=== PATIENT | female | born 1990 | race Caucasian/White ===

== ENCOUNTER → 2018-11-06 17:08 | Outpatient (CLI) | payer MEDICAID, SELFPAY ==
--- NOTE | 2018-11-06 17:14 | RAD_ITS ---
STUDY: X-RAY - SACRUM/COCCYX REASON FOR EXAM: Female, 27 years old. Pain after a fall TECHNIQUE: 3 view(s) of the sacrum and coccyx were obtained. COMPARISON: None. FINDINGS: Normal bilateral sacroiliac joints. Normal visualized sacral ala and fused sacral bodies. Normal sacrococcygeal junction with a normal angulation. Normal coccygeal segments. The presacral soft tissue structures are unremarkable. RAD/Sacrum-Coccyx min 2 Views IMPRESSION: Normal x-rays of the sacrum and coccyx. Electronically Signed: Max Correia MD at 13:51 EDT , Service support ,
--- NOTE | 2018-11-06 17:14 | RAD_ITS ---
STUDY: X-RAY - LUMBAR SPINE REASON FOR EXAM: Female, 27 years old. Fall TECHNIQUE: 4 view(s) of the lumbar spine were obtained. COMPARISON: None FINDINGS: Normal lumbar lordosis. There is a mild levoscoliosis. There is a normal alignment of the vertebrae. Normal vertebral bodies. Minimal spurring at the L5-S1 endplates. Normal disc space heights. The soft tissue structures are unremarkable. RAD/Lumbar Spine 2 or 3 Views IMPRESSION: No acute bony injury. Mild levoscoliosis of the lumbar spine. Electronically Signed: Dwight Jordan DO at 0:13 EDT Tel [phone], Service support ,
--- NOTE | 2018-11-06 17:14 | RAD_ITS ---
STUDY: X-RAY - THORACIC SPINE REASON FOR EXAM: Female, 27 years old. Fall TECHNIQUE: 3 view(s) of the thoracic spine were obtained. COMPARISON: None. FINDINGS: Normal kyphosis of the thoracic spine. There is no substantial scoliosis. Normal thoracic vertebrae and endplates. Normal disc space heights. The soft tissue structures are unremarkable. RAD/Thoracic Spine 2 Views IMPRESSION: Normal x-ray examination of the thoracic spine. Electronically Signed: Dwight Jordan DO at 0:14 EDT Tel [phone], Service support ,
== END ==
PROVIDERS: Family Provider Family Medicine Geriatric Medicine; PCP Family Medicine Geriatric Medicine; Referring Provider Family Medicine Geriatric Medicine; Visit Provider Family Medicine Geriatric Medicine
DX: T14.90XA Injury, unspecified, initial encounter (principal); W19.XXXA Unspecified fall, initial encounter; Y93.9 Activity, unspecified; Y92.9 Unspecified place or not applicable; Y99.9 Unspecified external cause status
CPT/HCPCS: 72070; 72100; 72220

== ENCOUNTER → 2018-11-28 | Outpatient (CLI) | payer OTHER, SELFPAY ==
[2018-11-28 09:32] VITALS: BMI 36.5
[2018-11-29 16:09] LABS: HPV Reflexed? NOT INDICATED
== END | disposition home or self-care (01) ==
LOC: LABSPEC 13:22
PROVIDERS: Family Provider Family Medicine Geriatric Medicine; PCP Family Medicine Geriatric Medicine; Referring Provider Nurse Practitioner Women's Health; Visit Provider Nurse Practitioner Women's Health
DX: Z12.4 Encounter for screening for malignant neoplasm of cervix (principal)
CPT/HCPCS: 87624; 88175; G0145

== ENCOUNTER → 2019-01-22 | Outpatient (CLI) | payer OTHER, SELFPAY ==
[2018-11-28 09:32] VITALS: BMI 36.5
[2019-01-22 17:53] LABS: Basophil# 0.07 X10^3/uL; Basophil% 0.6 % (0-1); Eosinophil# 0.16 X10^3/uL; Eosinophils% 1.3 % (0-5); Hematocrit 38.7 % (37-47); Lymphocyte # 5.43 X10^3/ul (4.0); Lymphocyte % 44.3 % (19-41); Mean Corp Hgb Conc 33.6 g/dL (32-36); Mean Corpuscular Hgb 30.7 pg (27.0-32.0); Mean Corpuscular Volume 91.5 fL (81-99); Mean Platelet Vol. 10.6 fl (6.2-12.0); Monocyte# 0.85 X10^3/uL; Monocyte% 6.9 % (0-10); NRBC Flagged by Analyzer 0 % (0-5); Neutrophil # 5.72 X10^3/uL (2.7-7.7); Neutrophil % 46.7 % (47-70); POSITIVE DIFFERENTIAL YES; Platelet Count 359 K/mm3 (150-450); RBC Distribution Width CV 12.2 % (11.6-14.6); RBC Distribution Width SD 40.6 fl (35.1-43.9); Red Blood Count 4.23 M/mm3 (4.2-5.4); White Blood Count 12.3 K/mm3 (4.4-11.0)
[2019-01-22 17:54] LABS: Differential Indicated SCAN CRITERIA MET
[2019-01-22 18:16] LABS: Anion Gap 9 (5-15); BUN 14 mg/dL (7-18); BUN/Creat Ratio 15.6 RATIO (10-20); Chloride 103 mmol/L (98-107); EST Glomerular Filtration Rate 79 mL/min (>60); Est Glom Filt Rate - Afr Amer 96 mL/min (>60); Glucose 98 mg/dL (74-106); Potassium 3.7 mmol/L (3.5-5.1); Sodium Level 140 mmol/L (136-145)
[2019-01-22 18:20] LABS: hCG Titer Quant., Serum < 1 mIU/mL (1-3)
== END | disposition home or self-care (01) ==
LOC: POLAB3 17:31
PROVIDERS: Family Provider Family Medicine Geriatric Medicine; PCP Family Medicine Geriatric Medicine; Visit Provider Family Medicine Geriatric Medicine
DX: N39.0 Urinary tract infection, site not specified (principal); N93.8 Other specified abnormal uterine and vaginal bleeding; R53.83 Other fatigue
CPT/HCPCS: 36415; 80048; 84702; 85025; 87086; 87088

== ENCOUNTER → 2019-01-23 | Outpatient (CLI) | payer OTHER, SELFPAY ==
[2018-11-28 09:32] VITALS: BMI 36.5
--- NOTE | 2019-01-23 08:30 | RAD_ITS ---
STUDY: X-RAY - ABDOMEN/PELVIS REASON FOR EXAM: Female, 28 years old. Pain x3 days, constipation TECHNIQUE: 4 AP views COMPARISON: None. FINDINGS: Normal visualized lung bases. There is an abundance of fecal material throughout the colon. There is no demonstrated free abdominal air. The visualized liver, spleen and kidneys are grossly normal in size and morphology. Normal soft tissue structures. Normal visualized osseous structures. RAD/Abd Inc Decub and/or Erect IMPRESSION: No acute findings, constipation Electronically Signed: Max Correia MD at 9:13 EDT , Service support ,
== END | disposition home or self-care (01) ==
LOC: RAD 08:26
PROVIDERS: Family Provider Family Medicine Geriatric Medicine; PCP Family Medicine Geriatric Medicine; Referring Provider Family Medicine Geriatric Medicine; Visit Provider Family Medicine Geriatric Medicine
DX: R10.9 Unspecified abdominal pain (principal)
CPT/HCPCS: 74019

== ENCOUNTER → 2019-07-23 16:14 | Outpatient (CLI) | payer OTHER, SELFPAY ==
[2018-11-28 09:32] VITALS: BMI 36.5
[2019-07-23 17:57] LABS: Absolute Lymphocyte Count 5.84 X10^3/uL (0.83-4.51); Absolute Neutrophil Count 4.8 X10^3/uL (2.0-7.7); Basophil# 0.06 X10^3/uL; Basophil% 0.5 % (0-1); Eosinophil# 0.22 X10^3/uL; Eosinophils% 1.9 % (0-5); Hematocrit 37.7 % (37-47); Hemoglobin 11.8 g/dL (12.0-15.0); Lymphocyte # 5.84 X10^3/ul (4.0); Lymphocyte % 50.1 % (19-41); Mean Corp Hgb Conc 31.3 g/dL (32-36); Mean Corpuscular Hgb 27.3 pg (27.0-32.0); Mean Corpuscular Volume 87.3 fL (81-99); Mean Platelet Vol. 11.3 fl (6.2-12.0); Monocyte# 0.71 X10^3/uL; Monocyte% 6.1 % (0-10); NRBC Flagged by Analyzer 0 % (0-5); Neutrophil # 4.79 X10^3/uL (2.7-7.7); Neutrophil % 41.1 % (47-70); POSITIVE DIFFERENTIAL YES; Platelet Count 401 K/mm3 (150-450); RBC Distribution Width SD 40.7 fl (35.1-43.9); Red Blood Count 4.32 M/mm3 (4.2-5.4); White Blood Count 11.7 K/mm3 (4.4-11.0)
[2019-07-23 18:00] LABS: Differential Indicated SCAN CRITERIA MET
[2019-07-23 18:17] LABS: ALB/GLOB Ratio 0.9 RATIO (0.9-2.4); AST(SGOT) 64 U/L (15-37); Alanine Aminotransfer ALT/SGPT 74 U/L (13-56); Albumin, Serum 3.5 g/dL (3.2-5.0); Alkaline Phosphatase 61 U/L (45-117); Anion Gap 5 (5-15); BUN 15 mg/dL (7-18); BUN/Creat Ratio 17.7 RATIO (10-20); Calcium,Total 8.8 mg/dL (8.5-10.1); Chloride 108 mmol/L (98-107); Creatinine, Serum 0.85 mg/dL (0.55-1.02); EST Glomerular Filtration Rate 84 mL/min (>60); Est Glom Filt Rate - Afr Amer 101 mL/min (>60); Glucose 81 mg/dL (74-106); Protein, Total 7.5 g/dL (6.4-8.2); Sodium Level 138 mmol/L (136-145); Thyroid Stim Hormone (TSH) 1.58 uIU/mL (0.358-3.74)
[2019-07-23 18:32] LABS: Differential Comment SCANNED
== END ==
PROVIDERS: PCP Family Medicine Geriatric Medicine; Visit Provider Family Medicine Geriatric Medicine
DX: I10 Essential (primary) hypertension (principal)
CPT/HCPCS: 36415; 80053; 84443; 85025

== ENCOUNTER → 2019-08-14 16:37 | Outpatient (CLI) | payer OTHER, SELFPAY ==
[2018-11-28 09:32] VITALS: BMI 36.5
[2019-08-14 17:30] LABS: Absolute Lymphocyte Count 5.54 X10^3/uL (0.83-4.51); Absolute Neutrophil Count 4.8 X10^3/uL (2.0-7.7); Basophil# 0.07 X10^3/uL; Basophil% 0.6 % (0-1); Eosinophil# 0.17 X10^3/uL; Eosinophils% 1.5 % (0-5); Hematocrit 35.9 % (37-47); Hemoglobin 11.1 g/dL (12.0-15.0); Lymphocyte # 5.54 X10^3/ul (4.0); Lymphocyte % 48.8 % (19-41); Mean Corp Hgb Conc 30.9 g/dL (32-36); Mean Corpuscular Hgb 26.8 pg (27.0-32.0); Mean Corpuscular Volume 86.7 fL (81-99); Monocyte# 0.78 X10^3/uL; Monocyte% 6.9 % (0-10); NRBC Flagged by Analyzer 0 % (0-5); Neutrophil # 4.77 X10^3/uL (2.7-7.7); POSITIVE DIFFERENTIAL YES; Platelet Count 406 K/mm3 (150-450); RBC Distribution Width CV 13.5 % (11.6-14.6); RBC Distribution Width SD 42.5 fl (35.1-43.9); Red Blood Count 4.14 M/mm3 (4.2-5.4); White Blood Count 11.4 K/mm3 (4.4-11.0)
[2019-08-14 17:41] LABS: Differential Indicated SCAN CRITERIA MET
[2019-08-14 17:54] LABS: ALB/GLOB Ratio 0.9 RATIO (0.9-2.4); AST(SGOT) 19 U/L (15-37); Alanine Aminotransfer ALT/SGPT 49 U/L (13-56); Albumin, Serum 3.5 g/dL (3.2-5.0); Alkaline Phosphatase 60 U/L (45-117); Anion Gap 6 (5-15); BUN 19 mg/dL (7-18); BUN/Creat Ratio 19.2 RATIO (10-20); Calcium,Total 8.8 mg/dL (8.5-10.1); Chloride 108 mmol/L (98-107); Creatinine, Serum 0.99 mg/dL (0.55-1.02); EST Glomerular Filtration Rate 70 mL/min (>60); Est Glom Filt Rate - Afr Amer 85 mL/min (>60); Globulin 3.9 g/dL (2.2-4.2); Glucose 110 mg/dL (74-106); Potassium 3.6 mmol/L (3.5-5.1); Protein, Total 7.4 g/dL (6.4-8.2); Sodium Level 138 mmol/L (136-145)
[2019-08-14 18:41] LABS: Platelet Estimate SLT INC (ADEQ); Red Cell Morphology NORM C+C NORMAL (NORM C&C)
[2019-08-14 18:42] LABS: Toxic Granulation RARE
[2019-08-15 09:19] LABS: Pathologist Review Reviewed
== END ==
PROVIDERS: PCP Family Medicine Geriatric Medicine; Visit Provider Family Medicine Geriatric Medicine
DX: D64.9 Anemia, unspecified (principal)
CPT/HCPCS: 36415; 80053; 85025

== ENCOUNTER → 2019-08-15 09:10 | Outpatient (CLI) | payer OTHER, SELFPAY ==
[2018-11-28 09:32] VITALS: BMI 36.5
[2019-08-15 12:26] LABS: Platelet Count 417 K/mm3 (150-450); RET-HE 28.5 pg (30-35); Reticulocyte Count 1.76 % (0.5-1.5)
[2019-08-15 12:44] LABS: Vitamin B12 511 pg/mL (211-911)
[2019-08-15 13:06] LABS: Ferritin 3 ng/mL (8-252); Iron 24 ug/dL (50-170); Iron Binding Capacity,Total 467 ug/dL (250-450); PERCENT IRON SATURATION 5.1 % (15.0-55.0)
== END ==
PROVIDERS: PCP Family Medicine Geriatric Medicine; Visit Provider Family Medicine Geriatric Medicine
DX: D64.9 Anemia, unspecified (principal)
CPT/HCPCS: 36415; 82607; 82728; 82746; 83540; 83550; 85045

== ENCOUNTER → 2019-09-02 17:41 | Outpatient (CLI) | payer OTHER, SELFPAY ==
[2018-11-28 09:32] VITALS: BMI 36.5
--- NOTE | 2019-09-02 17:50 | RAD_ITS ---
HISTORY: LOWER BACK PAIN FOR 3 MONTHS DUE TO EXERCISE INJURY TECHNIQUE: Lumbar spine 3 views Number of images including paperwork: 3 COMPARISON: 11/06/2018 FINDINGS: VERTEBRAE: No acute fracture. VERTEBRAL ALIGNMENT: No traumatic subluxation. Mild left convex lumbar curvature appears similar. DISKS AND JOINTS: No significant degenerative changes. SOFT TISSUES: Unremarkable paraspinous soft tissues. Moderate to large amount of stool in the visualized colon. RAD/Lumbar Spine 2 or 3 Views IMPRESSION: No acute osseous abnormality. at 0401 Reported and signed by: Carli Brannon MD Electronically Signed: Carli Brannon MD at 4:01 EST Tel , Service support ,
== END ==
PROVIDERS: PCP Family Medicine Geriatric Medicine; Referring Provider Family Medicine Geriatric Medicine; Visit Provider Family Medicine Geriatric Medicine
DX: M54.5 Low back pain (principal)
CPT/HCPCS: 72100

== ENCOUNTER → 2019-09-08 16:21 | Outpatient (CLI) | payer OTHER, SELFPAY ==
[2018-11-28 09:32] VITALS: BMI 36.5
[2019-09-08 17:46] LABS: Hematocrit 36.5 % (37-47); Hemoglobin 11.7 g/dL (12.0-15.0)
== END ==
PROVIDERS: PCP Family Medicine Geriatric Medicine; Visit Provider Family Medicine Geriatric Medicine
DX: D50.9 Iron deficiency anemia, unspecified (principal)
CPT/HCPCS: 36415; 85014; 85018

== ENCOUNTER → 2019-10-07 15:09 | Outpatient (CLI) | payer OTHER, SELFPAY ==
[2018-11-28 09:32] VITALS: BMI 36.5
[2019-10-07 16:38] LABS: Hematocrit 38.2 % (37-47)
== END ==
PROVIDERS: PCP Family Medicine Geriatric Medicine; Visit Provider Family Medicine Geriatric Medicine
DX: D64.9 Anemia, unspecified (principal)
CPT/HCPCS: 36415; 85014; 85018

== ENCOUNTER → 2019-11-18 11:56 | Outpatient (CLI) | payer OTHER, SELFPAY ==
[2018-11-28 09:32] VITALS: BMI 36.5
--- NOTE | 2019-11-18 11:59 | RAD_ITS ---
STUDY: X-RAY - ABDOMEN/PELVIS REASON FOR EXAM: Female, 28 years old. abd pain, constipation TECHNIQUE: AP supine and upright views of the abdomen and pelvis. COMPARISON: 01/23/2019 FINDINGS: There is an unremarkable bowel gas pattern. Nondiagnostic for pneumoperitoneum. 5 mm calcific opacity overlying the right kidney consistent with a right renal stone. Normal soft tissue structures. Normal visualized osseous structures. RAD/Abd Inc Decub and/or Erect IMPRESSION: 1. No bowel obstruction. 2. Nondiagnostic for pneumoperitoneum. 3. Probable 5 mm right renal stone. Electronically Signed: Melvin Salinas MD at 12:54 EDT Tel , Service support ,
== END ==
PROVIDERS: PCP Family Medicine Geriatric Medicine; Referring Provider Family Medicine Geriatric Medicine; Visit Provider Family Medicine Geriatric Medicine
DX: R10.9 Unspecified abdominal pain (principal)
CPT/HCPCS: 74019

== ENCOUNTER → 2020-01-06 15:06 | Outpatient (CLI) | payer OTHER, SELFPAY ==
[2018-11-28 09:32] VITALS: BMI 36.5
--- NOTE | 2020-01-06 17:03 | CT_ITS ---
STUDY: CT ABDOMEN AND PELVIS WITH CONTRAST REASON FOR EXAM: Female, 29 years old. RLQ PAIN RADIATION DOSAGE (If Supplied By Facility): CTDIvol = ( 13.83 ) mGy, DLP = ( 999.42 ) mGycm TECHNIQUE: Transaxial images were obtained from the dome of the diaphragm to the symphysis pubis with oral contrast. Oral and amp; IV GASTROGRAFIN and amp; 100ML ISOVUE 300 was administered. Sagittal and coronal images were reconstructed. Individualized dose optimization techniques were used for this CT. COMPARISON: 10/11/2016 FINDINGS: The visualized lung bases are unremarkable. The visualized portions of the heart are within normal limits. There is decreased attenuation of the liver consistent with steatosis. Hepatomegaly Normal gallbladder and extrahepatic biliary system. Normal spleen. Normal pancreas. Normal bilateral adrenal glands. Multiple nonobstructing right renal stones. Normal left kidney. Normal visualized stomach. Normal small intestine. Normal colon. The appendix is visualized and appears normal. Normal abdominal aorta. Normal inferior vena cava. Normal retroperitoneum. Normal urinary bladder. Retroverted uterus. Normal abdominal wall. Normal osseous structures. CT/Abdomen/Pelvis WITH Contrast IMPRESSION: No evidence of appendicitis, acute intestinal pathology, or acute obstructive uropathy. Hepatomegaly and fatty liver. Electronically Signed: Christiano Mane MD at 17:35 EDT Tel , Service support ,
== END ==
PROVIDERS: PCP Family Medicine Geriatric Medicine; Referring Provider Family Medicine Geriatric Medicine; Visit Provider Family Medicine Geriatric Medicine
DX: N39.0 Urinary tract infection, site not specified (principal); R10.9 Unspecified abdominal pain
CPT/HCPCS: 74177; 87086; 87088; Q9967

== ENCOUNTER → 2020-01-07 17:44 | Outpatient (CLI) | payer OTHER, SELFPAY ==
[2018-11-28 09:32] VITALS: BMI 36.5
== END ==
PROVIDERS: PCP Family Medicine Geriatric Medicine; Referring Provider Family Medicine Geriatric Medicine; Visit Provider Family Medicine Geriatric Medicine
DX: J41.0 Simple chronic bronchitis (principal)
CPT/HCPCS: 87635; G2023; U0003

== ENCOUNTER → 2020-02-02 08:56 | Outpatient (CLI) | payer OTHER, SELFPAY ==
[2018-11-28 09:32] VITALS: BMI 36.5
--- NOTE | 2020-02-02 08:59 | US_ITS ---
STUDY: RENAL ULTRASOUND - COMPLETE REASON FOR EXAM: Female, 29 years old. MEDULLARY SPONGE KIDNEY TECHNIQUE: Ultrasound evaluation of the kidneys was performed with real-time and static rangel-scale imaging. COMPARISON: Comparison is made with prior CT scan and pelvis dated 01/06/2020. FINDINGS: RIGHT KIDNEY: Normal location of the right kidney, which is normal in size. The right kidney measures 12.8 cm x 6.6 cm x 6.1 cm. There is a normal cortex of the right kidney. The renal cortex measures 1.4 cm. There is no right renal mass or cyst. There is a 5 mm x 5 mm x 9 mm calculus. There is no right hydronephrosis. DISTAL RIGHT URETER: There is non-visualization of the distal right ureter. There is no demonstrated right ureterovesical junction calculus. There is a visualized right ureteral jet. LEFT KIDNEY: Normal location of the left kidney, which is normal in size. The left kidney measures 12.7 cm x 6 cm x 5.9 cm. There is a normal cortex of the left kidney. The renal cortex measures 0.9 cm. There is no left renal mass or cyst. There are no left renal calculi. There is no left hydronephrosis. DISTAL LEFT URETER: There is non-visualization of the distal left ureter. There is no demonstrated left ureterovesical junction calculus. There is a visualized left ureteral jet. BLADDER: The distended urinary bladder has a volume of 174 ml. There is a normal wall thickness of the distended urinary bladder. There is no demonstrated mass within the urinary bladder. There are no demonstrated bladder calculi. US/Kidney and Bladder IMPRESSION: 5 mm x 5 mm x 9 mm right renal calculus. Electronically Signed: Fredy Short, at 11:11 EDT , Service support ,
== END ==
PROVIDERS: PCP Family Medicine Geriatric Medicine; Referring Provider Family Medicine Geriatric Medicine; Visit Provider Family Medicine Geriatric Medicine
DX: Q61.5 Medullary cystic kidney (principal)
CPT/HCPCS: 76770

== ENCOUNTER → 2020-04-29 10:33 | Outpatient (CLI) | payer OTHER, SELFPAY ==
[2018-11-28 09:32] VITALS: BMI 36.5
== END ==
PROVIDERS: PCP Family Medicine Geriatric Medicine; Referring Provider Family Medicine Geriatric Medicine; Visit Provider Family Medicine Geriatric Medicine
DX: R68.83 Chills (without fever) (principal)
CPT/HCPCS: 87633; 87635; C9803; U0003

== ENCOUNTER → 2020-07-09 | Outpatient (CLI) | payer OTHER, SELFPAY ==
[2020-05-25 08:14] VITALS: BMI 35.4
== END | disposition home or self-care (01) ==
LOC: LABSPEC 09:25
PROVIDERS: PCP Family Medicine Geriatric Medicine; Visit Provider Family Medicine Geriatric Medicine
DX: Z20.822 Contact with and (suspected) exposure to COVID-19 (principal)
CPT/HCPCS: 87426

== ENCOUNTER → 2020-07-20 17:19 | Outpatient (CLI) | payer OTHER, SELFPAY ==
[2020-05-25 08:14] VITALS: BMI 35.4
== END ==
PROVIDERS: PCP Family Medicine Geriatric Medicine; Referring Provider Family Medicine Geriatric Medicine; Visit Provider Family Medicine Geriatric Medicine
DX: U07.1 COVID-19 (principal); R68.83 Chills (without fever)
CPT/HCPCS: 87633; 87635; C9803; U0003

== ENCOUNTER → 2020-08-31 16:48 | Outpatient (CLI) | payer OTHER, SELFPAY ==
[2020-05-25 08:14] VITALS: BMI 35.4
[2020-08-31 17:19] LABS: Absolute Lymphocyte Count 6.31 X10^3/uL (0.83-4.51); Absolute Neutrophil Count 6.4 X10^3/uL (2.0-7.7); Basophil# 0.09 X10^3/uL; Basophil% 0.7 % (0-1); Eosinophil# 0.17 X10^3/uL; Eosinophils% 1.2 % (0-5); Hematocrit 42.3 % (37-47); Lymphocyte # 6.31 X10^3/ul (4.0); Lymphocyte % 45.8 % (19-41); Mean Corp Hgb Conc 33.1 g/dL (32-36); Mean Corpuscular Hgb 30.5 pg (27.0-32.0); Mean Corpuscular Volume 92.2 fL (81-99); Mean Platelet Vol. 10.9 fl (6.2-12.0); Monocyte# 0.79 X10^3/uL; Monocyte% 5.7 % (0-10); NRBC Flagged by Analyzer 0 % (0-5); Neutrophil # 6.37 X10^3/uL (2.7-7.7); Neutrophil % 46.2 % (47-70); POSITIVE DIFFERENTIAL YES; POSITIVE MORPHOLOGY YES; Platelet Count 391 K/mm3 (150-450); RBC Distribution Width CV 12.3 % (11.6-14.6); RBC Distribution Width SD 41.6 fl (35.1-43.9); Red Blood Count 4.59 M/mm3 (4.2-5.4); White Blood Count 13.8 K/mm3 (4.4-11.0)
[2020-08-31 17:29] LABS: Differential Indicated SCAN CRITERIA MET
[2020-08-31 17:42] LABS: Anisocytosis RARE; Atypical Lymphocyte RARE %; Macrocytosis RARE; Platelet Estimate ADEQUATE (ADEQ); Red Cell Morphology N CHROM NORMAL (NORM C&C)
[2020-08-31 18:41] LABS: Anion Gap 7 (5-15); BUN 14 mg/dL (7-18); BUN/Creat Ratio 17.3 RATIO (10-20); Calcium,Total 9.1 mg/dL (8.5-10.1); Chloride 103 mmol/L (98-107); Creatinine, Serum 0.81 mg/dL (0.55-1.02); EST Glomerular Filtration Rate 88 mL/min (>60); Est Glom Filt Rate - Afr Amer 107 mL/min (>60); Glucose 105 mg/dL (74-106); Sodium Level 138 mmol/L (136-145)
[2020-09-01 14:56] LABS: Pathologist Review Reviewed
== END ==
PROVIDERS: PCP Family Medicine Geriatric Medicine; Visit Provider Family Medicine Geriatric Medicine
DX: R53.83 Other fatigue (principal)
CPT/HCPCS: 36415; 80048; 84443; 85025

== ENCOUNTER → 2020-10-07 16:49 | Outpatient (CLI) | payer OTHER, SELFPAY ==
[2020-05-25 08:14] VITALS: BMI 35.4
--- NOTE | 2020-10-07 16:55 | RAD_ITS ---
INDICATION: LUMBAR DISC LESION EXAMINATION/TECHNIQUE: X-RAY - XR Spine Lumbar 2 or 3 Views COMPARISON: None. FINDINGS: VERTEBRAE: Preserved vertebral body height. No fracture. Mild left convex curvature of the mid lumbar spine. 6 mm left lateral subluxation of the L4 vertebral body with respect to the L5 vertebral body. No spondylolisthesis. Straightening of the normal lumbar lordosis. No significant facet arthropathy. DISCS: Mild disc space narrowing at L5-S1. INCLUDED ABDOMEN: Included bowel gas pattern is non-obstructive. RAD/Lumbar Spine 2 or 3 Views IMPRESSION: 6 mm left lateral subluxation of the L4 vertebral body with respect to the L5 vertebral body. Levoscoliosis of the lumbar spine. Mild lumbar spondylosis at L5-S1. Electronically Signed: Demian Blankenship MD at 19:32 EDT Tel , Service support ,
== END ==
PROVIDERS: PCP Family Medicine Geriatric Medicine; Referring Provider Family Medicine Geriatric Medicine; Visit Provider Family Medicine Geriatric Medicine
DX: M51.86 Other intervertebral disc disorders, lumbar region (principal)
CPT/HCPCS: 72100

== ENCOUNTER → 2020-10-18 | Outpatient (CLI) | payer OTHER, SELFPAY ==
[2020-05-25 08:14] VITALS: BMI 35.4
--- NOTE | 2020-10-18 | MISC_PTH ---
PATIENT: NIKKI KENT LOC: [facility] U#:[id number] AGE/SX: 29/F ROOM: RE10/18/[address]: Dr. Dinesh Koenig MD : 1990 BED: DIS: 10/18/2020 SPEC #: [id number] RECD: 10/18/20 16:39 STATUS: TAYLOR ORTASena #: [id number] FEI: 10/18/20 00:[address]: Dinesh Koenig Chi DEPT: SURGICAL PATHOLOGY RECD BY: Justin Delaney Tissues: Finger, NOS Procedures: Surgery Specimen Level IV HEADER OPERATION: Right index finger PRE-OP DIAGNOSIS: Right index finger TISSUE SUBMITTED: Right index finger MICROSCOPIC DIAGNOSIS Skin lesion, right index finger, shave biopsy: Mild acanthosis, hyperkeratosis and focal parakeratosis. No evidence of malignancy. AM:anna 10/20/2020 MICROSCOPIC DESCRIPTION Slides are reviewed. GROSS DESCRIPTION Received in fixative is one container labeled with the patient's name and designated right index finger. The specimen consists of a shave biopsy of willett-white skin measuring 0.5 x 0.4 cm and 0.1 cm in thickness. The specimen is inked and submitted entirely in one cassette. It will be bisected at the time of embedding. / SJ:rg 10/19/20 TC: 5 CPT: 46287
== END | disposition home or self-care (01) ==
LOC: LABSPEC 16:26
PROVIDERS: PCP Family Medicine Geriatric Medicine; Visit Provider Family Medicine Geriatric Medicine
DX: L98.9 Disorder of the skin and subcutaneous tissue, unspecified (principal)
CPT/HCPCS: 88304; 88305

== ENCOUNTER 2021-02-08 08:00 | Outpatient (RCR) | payer OTHER, SELFPAY ==
[2020-05-25 08:14] VITALS: BMI 35.4
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
--- NOTE | 2021-05-10 13:26 | HP.PT.NRP ---
NIKKI KENT was seen in my office for initial evaluation on 12/10/20. The following Plan of Care was established for this patient: Initial Frequency: 2-3x /Week Initial Duration: 4-6 Weeks Patient/Client Instruction: Educate patient on: Condition, Plan of Care, Risk Factors For the Purpose of:: To improve self management Therapeutic Exercise to Include: Strength training, Body mechanics, Postural training, Flexibilty training, Neuromotor development, In an aquatic setting, Dynamic Lumbar Stabilization For the Purpose of:: To decrease pain, To improve muscle performance and motor function, To increase tolerance to activity/condition/position, To improve ability of physical actions for home/community/work/leisure TENS: Yes IF ES: Yes Cryotherapy (ice pack, ice massage): Yes Thermo therapy (hot pack): Yes Ultrasound (thermal/non thermal): Yes For the Purpose of:: To decrease pain, To improve nutrient delivery to tissue This patient was last seen in our office 02/08/21. Pertinent comments regarding their Physical therapy will appear below: This patient has not returned to Physical Therapy and is appropriate to return to MD for further follow-up as needed. At this point I will be discontinuing this patient from physical therapy. I would be happy to see this patient again in the future if found appropriate by the physician. Thank you! Maddie Grant, PT, Cert MDT Balance/Gait/Functional tests - Balance/Special Test Scores Oswestry Low Back Score: 14
== END 2021-02-08 19:00 | disposition home or self-care (01) ==
LOC: PT 08:00
PROVIDERS: PCP Family Medicine Geriatric Medicine; Referring Provider Family Medicine Geriatric Medicine; Visit Provider Family Medicine Geriatric Medicine
DX: M54.40 Lumbago with sciatica, unspecified side (principal)
CPT/HCPCS: 97014; 97035; 97110; 97112; 97162; 97530; G0283

== ENCOUNTER 2021-02-12 09:59 | Emergency (ER) | payer OTHER, SELFPAY ==
[2020-05-25 08:14] VITALS: BMI 35.4
[2021-02-12 10:04] VITALS: BP 142/95; PULSE 103; RESP 16; TEMP 36.3; O2SAT 100; BMI 35.9
--- NOTE | 2021-02-12 10:32 | ED.VIS.BACK ---
HPI History of Present Illness Chief Complaint: Back Informant: patient Onset/Context/Timing Onset: Today Context: Gradual Onset Timing: Continuous Quality: Sharp and Dull Location: Lumbar, Buttock and Left Leg Worsened by: improves with - (Sitting and laying down) Relieved by: - (Standing) Associated Symptoms Associated Symptoms: Numbness and Radiation to Left Leg; Negative for Radiation to Right Leg, Fever, Abdominal Pain, Dysuria, Unable to Ambulate, Unable to Transfer, Urinary Retention, Urinary Incontinence, Constipation and Fecal Incontinence Narrative Narrative: Patient presents with sciatica pain that became worse today. Patient states she has a history of sciatica going down her left leg. Patient states she is in physical therapy for this. Patient states she has been taking Tylenol and ibuprofen with minimal relief. Patient admits to some numbness and tingling down her left leg. Patient denies any radiation of the pain into her abdomen. Patient denies any bowel or bladder changes. Patient denies any saddle anesthesia. Patient denies any recent trauma or injury. [facility] Medical History Hypertension Migraines PCOS (polycystic ovarian syndrome) Home Medications nebivolol 5 mg tablet 5 mg PO DAILY 11/28/18 [History Last Taken Unknown] norethindrone (contraceptive) 0.35 mg tablet 0.35 mg PO QDAY #84 tab 05/25/20 [Rx Last Taken Unknown] omeprazole 20 mg capsule,delayed release 20 mg PO DAILY 05/25/20 [History Last Taken Unknown] melatonin 5 mg PO QHS 02/12/21 [History Last Taken Unknown] oxycodone-acetaminophen 1 tab PO Q6H PRN PRN 3 Days #12 tablet 02/12/21 [Rx Last Taken Unknown] Allergy/AdvReac Type Severity Reaction Status Date / Time acetaminophen [From Vicodin] AdvReac Nausea/Vom/ Verified 02/12/21 10:04 Diarrhea hydrocodone [From Vicodin] AdvReac Nausea/Vom/ Verified 02/12/21 10:04 Diarrhea metoclopramide [From Reglan] AdvReac Other Verified 02/12/21 10:04 promethazine [From Phenergan] AdvReac Other Verified 02/12/21 10:04 Family History Mother Hypertension Grandfather Prostate cancer Other Ovarian cancer Surgical History s/p polyp removal Social History household members: spouse and children number of children: 2 current occupational status: employed current occupation: [employer] history of recent travel: No sexually active: Yes Smoking Status: Former smoker alcohol intake: current alcohol intake frequency: holidays/special occasions only substance use type: does not use caffeine: Yes what type of physical activity do you participate in: weight training frequency: 1-2 times per week seatbelt use: always do you feel safe at home: Yes additional social history: - [place] [facility] ED Constitutional Constitutional ED: Denies chills or fever(s) Eyes Eyes: Denies blurry vision or change in vision ENT ENT ED: Denies rhinorrhea or sore throat Cardiovascular Cardiovascular: Denies chest pain or palpitations Respiratory/Chest Respiratory/Chest: Denies cough or dyspnea Gastrointestinal Gastrointestinal: Denies nausea or vomiting Genitourinary Genitourinary ED: Denies dysuria or hematuria Musculoskeletal Musculoskeletal: Reports back pain; Denies neck pain Integumentary Denies abscess or rash Neurologic Neurologic: Reports paresthesias LLE; Denies headache(s) or weakness Allergic/Immunologic Allergic/Immunologic ED: Denies mouth swelling or urticaria EXAM Physical Exam Const Vital Signs: 02/12/21 10:04 Temperature 97.3 F L Temperature Source Temporal Pulse Rate 103 H Respiratory Rate 16 Blood Pressure 142/95 H Blood Pressure Mean 110 Pulse Ox 100 Oxygen Delivery Method Room Air Positive well nourished, well developed and obese General Appearance ED: well developed Nutritional Appearance: obese HEENT Reports moist mucous membranes Neck supple and no JVD Back/Spine Back/Spine Narrative: There is tenderness over the left lower lumbar paraspinal muscles. There is no midline tenderness. There is tenderness over the sciatic notch. There is no bony crepitance or step-off. Range of motion was limited in all motions of the lumbar spine secondary to pain. Strength is 5/5 bilaterally in the lower extremities. Neuro oriented x3 Sensorium / Orientation: alert Motor Exam: strength 5/5 throughout Psych mental status grossly normal MDM MDM MDM Narrative Medical decision making narrative: Patient drove herself to the emergency department. Patient was given a dose of Naprosyn here. Patient was given a prescription for Percocet. Patient was instructed continue using ice to the area. Patient was instructed to continue her physical therapy. Patient was instructed to follow-up with her primary care physician in 5 to 7 days. Patient understood and was agreeable with the plan. All questions were answered. Discharge Plan Triage Chief Complaint: Back ED Provider: Jc Torres Dx/Rx/DC Orders Clinical Impression: Sciatica of left side Instructions: ED Sciatica Prescriptions: New oxycodone-acetaminophen [oxycodone-acetaminophen] 1 TABLET tablet 1 tab PO Q6H PRN PRN (Reason: Pain) 3 Days Qty: 12 RF: 0 No Action Bystolic 5 mg tablet 5 mg PO DAILY RF: 0 omeprazole 20 mg capsule,delayed release(DR/EC) 20 mg PO DAILY RF: 0 norethindrone (contraceptive) [Rica] 0.35 mg tablet 0.35 mg PO QDAY Qty: 84 RF: 4 melatonin 5 mg Tablet 5 mg PO QHS RF: 0 Primary Care Provider: Dinesh Koenig Chi Referrals: Dinesh Koenig Chi, MD [Primary Care Provider] - 3-5 Days Disposition Disposition: Home, Self Care
[2021-02-12] MEDS: Naproxen 250 MG Tablet 500 MG PO (10:59)
== END 2021-02-12 11:04 | disposition home or self-care (01) ==
LOC: ED 10:53
PROVIDERS: Emergency Provider Emergency Medicine; PCP Family Medicine Geriatric Medicine
DX: M54.42 Lumbago with sciatica, left side (principal); I10 Essential (primary) hypertension; E66.9 Obesity, unspecified; Z68.35 Body mass index [BMI] 35.0-35.9, adult; Z79.899 Other long term (current) drug therapy; Z87.891 Personal history of nicotine dependence
CPT/HCPCS: 99283

== ENCOUNTER → 2021-02-25 11:22 | Outpatient (CLI) | payer OTHER, SELFPAY ==
--- NOTE | 2021-02-25 12:44 | NEURO ---
NCS and/or EMG Patient Report Ordering Doctor: Dinesh Koenig Chi DATE OF SERVICE: 02/25/21 Indication: Left sciatica pain for the last 6 months. Numbness on the lateral aspect of the left leg for the last month. Evaluate for lumbar radiculopathy. Findings: Nerve conduction studies were performed in the left lower extremity. The left peroneal motor study recording the extensor digitorum brevis showed a normal amplitude, normal distal latency and normal conduction velocity. No conduction block or focal slowing was present across the fibular neck. The left tibial motor study recording the abductor hallucis brevis showed a normal amplitude, normal distal latency and normal conduction velocity. Left sural sensory response showed a normal amplitude and conduction velocity. Left superficial peroneal sensory response showed a normal amplitude and conduction velocity. Needle EMG of the left lower extremity and lumbar paraspinal muscles was performed. No denervation was present in any muscle. All motor unit morphology, activation and recruitment patterns were normal. Impression: This is a normal study. There is no electrophysiologic evidence of lumbosacral radiculopathy, plexopathy, or peripheral neuropathy in the left lower extremity. Please note: the electrodiagnosis of radiculopathy is made on the basis of excluding peripheral nerve lesions on nerve conduction studies and the needle EMG demonstrating denervation and/or reinnervation in the distribution of one or more nerve roots (i.e., acute and/or chronic axonal loss). Thus, electrodiagnostic studies are insensitive in detecting radiculopathy in the absence of axonal loss (e.g., in the setting of compression resulting in intermittent ischemia or mechanical deformation; or demyelination without axonal loss). Thus, clinical correlation is required in the interpretation of this negative electrodiagnostic study for radiculopathy. Demian Boggs D.O.
== END ==
LOC: PSN 11:25
PROVIDERS: PCP Family Medicine Geriatric Medicine; Referring Provider Family Medicine Geriatric Medicine; Visit Provider Family Medicine Geriatric Medicine
DX: R20.9 Unspecified disturbances of skin sensation (principal); R20.0 Anesthesia of skin
CPT/HCPCS: 95886; 95908

== ENCOUNTER → 2021-03-05 07:47 | Outpatient (CLI) | payer OTHER, SELFPAY ==
--- NOTE | 2021-03-05 07:58 | MRI_ITS ---
STUDY: MRI LUMBAR SPINE WITHOUT CONTRAST REASON FOR EXAM: Female, 30 years old. LOW BACK PAIN TECHNIQUE: Standardized fat and water weighted pulse sequences were obtained in the sagittal and axial planes. COMPARISON: X-ray 10/07/2020 FINDINGS: T12-L1: Normal endplates. Normal disc height, hydration and morphology. Normal bilateral facet joints. Normal central canal and bilateral lateral recesses. Normal bilateral intervertebral neural foramina. Normal lumbar lordosis. Mild levoscoliosis centered at L3. Normal conus medullaris that terminates at the L1/L2. L1-2: Normal endplates. Normal disc height, hydration and morphology. Normal bilateral facet joints. Normal central canal and bilateral lateral recesses. Normal bilateral intervertebral neural foramina. L2-3: Mild bilobed disc protrusion produces mild spinal stenosis and mild left neural foraminal stenosis. L3-4: Normal endplates. Normal disc height, hydration and morphology. Normal bilateral facet joints. Normal central canal and bilateral lateral recesses. Normal bilateral intervertebral neural foramina. L4-5: Moderate sized central and left paracentral disc protrusion with an inferiorly extending extrusion produces moderate spinal stenosis with mild right neural foraminal stenosis, moderate left neural foraminal stenosis with abutment of the left L5 nerve root and mild bilateral neural foraminal stenosis. L5-S1: Mild broad disc protrusion produces mild spinal stenosis and moderate bilateral neural foraminal stenosis with abutment of the L5 nerve roots bilaterally. Normal visualized sacral ala. Normal visualized paraspinous soft tissue structures. MRI/Spine Lumbar (Routine) IMPRESSION: Levoscoliosis with degenerative disc disease as described above. Electronically Signed: Melvin Salinas MD at 14:22 EDT Tel , Service support ,
== END ==
PROVIDERS: PCP Family Medicine Geriatric Medicine; Referring Provider Family Medicine Geriatric Medicine; Visit Provider Family Medicine Geriatric Medicine
DX: M54.5 Low back pain (principal)
CPT/HCPCS: 72148

== ENCOUNTER → 2021-03-08 10:40 | Outpatient (CLI) | payer OTHER, SELFPAY | PROVIDERS: PCP Family Medicine Geriatric Medicine; Referring Provider Family Medicine Geriatric Medicine; Visit Provider Family Medicine Geriatric Medicine | DX: R68.83 Chills (without fever) (principal) | CPT/HCPCS: 87633; 87635; C9803; U0005; U0003 ==

== ENCOUNTER 2021-03-26 11:03 | Emergency (ER) | payer OTHER, SELFPAY ==
[2021-03-26 11:04] VITALS: BP 166/125; PULSE 99; RESP 18; TEMP 35.7; O2SAT 97; BMI 35.6
[2021-03-26] MEDS: Morphine 4 MG/ML Syringe IM (12:10)
[2021-03-26] MEDS: Ketorolac 60 MG/2 ML Vial IM (12:10)
[2021-03-26] MEDS: Orphenadrine 60 MG/2 ML Ampul IM (12:11)
--- NOTE | 2021-03-26 12:56 | EDS_ITS ---
HPI History of Present Illness Chief Complaint: Back Informant: patient Narrative Narrative: Patient presents with low back pain that became worse today. Patient states she has a history of chronic low back pain and sciatica. Patient states her pain is over the left lower lumbar area. Patient states the pain radiates to her left gluteal area and left thigh. Patient admits to some numbness and tingling over the lateral aspect of her left thigh. Patient denies any radiation of the pain to her abdomen. Patient denies any urinary or stool incontinence. Patient denies any weakness. Patient denies any saddle anesthesia. [facility] Medical History Hypertension Migraines PCOS (polycystic ovarian syndrome) Home Medications norethindrone (contraceptive) 0.35 mg tablet 0.35 mg PO QDAY #84 tab 05/25/20 [Rx Last Taken Unknown] omeprazole 20 mg capsule,delayed release 20 mg PO DAILY 05/25/20 [History Last Taken Unknown] melatonin 5 mg PO QHS 02/12/21 [History Last Taken Unknown] nebivolol [Bystolic] 5 mg PO DAILY 03/26/21 [History Last Taken Unknown] Allergy/AdvReac Type Severity Reaction Status Date / Time acetaminophen [From Vicodin] AdvReac Nausea/Vom/ Verified 03/26/21 11:04 Diarrhea hydrocodone [From Vicodin] AdvReac Nausea/Vom/ Verified 03/26/21 11:04 Diarrhea metoclopramide [From Reglan] AdvReac Other Verified 03/26/21 11:04 promethazine [From Phenergan] AdvReac Other Verified 03/26/21 11:04 Family History Mother Hypertension Grandfather Prostate cancer Other Ovarian cancer Surgical History s/p polyp removal Social History household members: spouse and children number of children: 2 current occupational status: employed current occupation: [employer] history of recent travel: No sexually active: Yes Smoking Status: Current every day smoker tobacco type: cigarettes alcohol intake: current alcohol intake frequency: holidays/special occasions only substance use type: does not use caffeine: Yes what type of physical activity do you participate in: weight training frequency: 1-2 times per week seatbelt use: always do you feel safe at home: Yes additional social history: - [place] ED Constitutional Constitutional ED: Denies chills or fever(s) Eyes Eyes: Denies blurry vision or change in vision ENT ENT ED: Denies rhinorrhea or sore throat Cardiovascular Cardiovascular: Denies chest pain or palpitations Respiratory/Chest Respiratory/Chest: Denies cough or dyspnea Gastrointestinal Gastrointestinal: Denies nausea or vomiting Genitourinary Genitourinary ED: Denies dysuria or hematuria Musculoskeletal Musculoskeletal: Reports back pain; Denies neck pain Integumentary Denies abscess or rash Neurologic Neurologic: Denies headache(s) or weakness Allergic/Immunologic Allergic/Immunologic ED: Denies mouth swelling or urticaria EXAM Physical Exam Const Vital Signs: 03/26/21 11:04 Temperature 96.3 F L Temperature Source Temporal Pulse Rate 99 Respiratory Rate 18 Blood Pressure 166/125 H Blood Pressure Mean 138 Pulse Ox 97 Oxygen Delivery Method Room Air Positive well nourished, well developed and obese General Appearance ED: well developed Nutritional Appearance: obese Back/Spine Back/Spine Narrative: There is tenderness to palpation and mild spasm over the left lower lumbar paraspinal muscles. There is tenderness over the sciatic notch. There is no bony crepitance or step-off. There is no deformity noted. Range of motion was limited in all motions of the lumbar spine secondary to pain. Strength is 5/5 bilaterally in the lower extremities. There are no sensory deficits noted. Lumbar Spine / Lower Back: ROM limited Extremity normal to inspection Neuro oriented x3 and no sensory deficits noted Sensorium / Orientation: alert Psych mental status grossly normal MDM MDM MDM Narrative Medical decision making narrative: Patient was given injections of Toradol, morphine, and Norflex here. Patient is feeling better on reevaluation. Patient was instructed to continue her medications as prescribed by her pain management physician. Patient was instructed to use ice to the area. Patient was instructed return if worse in any way. Patient understood and was agreeable with the plan. All questions were answered. Discharge Plan Triage Chief Complaint: Back ED Provider: Jc Torres Dx/Rx/DC Orders Clinical Impression: Sciatica of left side Instructions: ED Back Pain (Acute or Chronic) Prescriptions: No Action omeprazole 20 mg capsule,delayed release(DR/EC) 20 mg PO DAILY RF: 0 norethindrone (contraceptive) [Rica] 0.35 mg tablet 0.35 mg PO QDAY Qty: 84 RF: 4 melatonin 5 mg Tablet 5 mg PO QHS RF: 0 nebivolol [Bystolic] 5 mg Tablet 5 mg PO DAILY RF: 0 Primary Care Provider: Dinesh Koenig Chi Referrals: Korina Seaman MD [STAFF PHYSICIAN] - 3-5 Days Dinesh Koenig Chi, MD [Primary Care Provider] - 3-5 Days Disposition Disposition: Home, Self Care
== END 2021-03-26 13:42 | disposition home or self-care (01) ==
PROVIDERS: Emergency Provider Emergency Medicine; PCP Family Medicine Geriatric Medicine
DX: M54.42 Lumbago with sciatica, left side (principal); G89.29 Other chronic pain; I10 Essential (primary) hypertension; E28.2 Polycystic ovarian syndrome; E66.9 Obesity, unspecified; F17.210 Nicotine dependence, cigarettes, uncomplicated; Z79.899 Other long term (current) drug therapy
CPT/HCPCS: 96372; 99282

== ENCOUNTER → 2021-03-29 10:12 | Outpatient (CLI) | payer OTHER, SELFPAY ==
--- NOTE | 2021-03-29 10:17 | CT_ITS ---
STUDY: CT ABDOMEN AND PELVIS WITHOUT CONTRAST REASON FOR EXAM: Female, 30 years old. ABD PAIN RADIATION DOSAGE (If Supplied By Facility): CTDIvol = ( 15.07 ) mGy, DLP = ( 789.28 ) mGycm TECHNIQUE: Transaxial images were obtained from the dome of the diaphragm to the symphysis pubis without oral contrast, and without intravenous contrast. Sagittal and coronal images were reconstructed. Individualized dose optimization techniques were used for this CT. COMPARISON: Comparison is made with prior study dated 01/06/2020. FINDINGS: The visualized lung bases are unremarkable. The visualized portions of the heart are within normal limits. There is decreased attenuation of the liver consistent with steatosis. Low-level densities are seen within the gallbladder lumen. This may represent either multiple tiny gallstones or possible sludge. Normal spleen. Normal pancreas. Normal bilateral adrenal glands. Multiple nonobstructive right intrarenal calculi are seen. The largest is in the mid pole calyx and measures 7.1 mm. Minimal degree of right hydronephrosis. No obstructive uropathy is seen. Normal left kidney. Normal visualized stomach. Normal small intestine. There are scattered colonic diverticula consistent with diverticulosis. The appendix is visualized and appears normal. Normal abdominal aorta. Normal inferior vena cava. Normal retroperitoneum. Normal urinary bladder. There is a 2.3 cm x 2 cm cyst in the right ovary. Normal abdominal wall. There are mild degenerative changes of the visualized lumbar spine. CT/Abdomen/Pelvis without Cont IMPRESSION: Stable right internal renal nonobstructive calculi. Fatty infiltration of the liver. Right ovarian cyst. Electronically Signed: Fredy Short MD at 11:34 EDT , Service support ,
[2021-03-29 12:30] LABS: Absolute Neutrophil Count 11.8 X10^3/uL (2.0-7.7); Basophil# 0.07 X10^3/uL; Basophil% 0.4 % (0-1); Eosinophil# 0.02 X10^3/uL; Eosinophils% 0.1 % (0-5); Hematocrit 46.6 % (37-47); Hemoglobin 15.7 g/dL (12.0-15.0); Lymphocyte % 22.9 % (19-41); Mean Corp Hgb Conc 33.7 g/dL (32-36); Mean Corpuscular Volume 89.1 fL (81-99); Mean Platelet Vol. 10.8 fl (6.2-12.0); Monocyte# 1.17 X10^3/uL; Monocyte% 6.9 % (0-10); NRBC Flagged by Analyzer 0 % (0-5); Neutrophil # 11.79 X10^3/uL (2.7-7.7); Neutrophil % 69.2 % (47-70); Platelet Count 519 K/mm3 (150-450); RBC Distribution Width CV 12.5 % (11.6-14.6); RBC Distribution Width SD 41.1 fl (35.1-43.9); Red Blood Count 5.23 M/mm3 (4.2-5.4)
[2021-03-29 12:56] LABS: Anion Gap 11 (5-15); BUN 15 mg/dL (7-18); Calcium,Total 9.6 mg/dL (8.5-10.1); Chloride 101 mmol/L (98-107); Creatinine, Serum 0.75 mg/dL (0.55-1.02); EST Glomerular Filtration Rate 96 mL/min (>60); Est Glom Filt Rate - Afr Amer 116 mL/min (>60); Glucose 116 mg/dL (74-106); Potassium 3.9 mmol/L (3.5-5.1); Sodium Level 134 mmol/L (136-145)
== END ==
PROVIDERS: PCP Family Medicine Geriatric Medicine; Visit Provider Family Medicine Geriatric Medicine
DX: R10.9 Unspecified abdominal pain (principal); R31.9 Hematuria, unspecified
CPT/HCPCS: 36415; 74176; 80048; 85025; 87086; 87088

== ENCOUNTER 2021-05-18 09:49 | Observation (INO) | payer OTHER, SELFPAY ==
[2021-05-09 17:21] LABS: Absolute Lymphocyte Count 5.21 X10^3/uL (0.83-4.51); Absolute Neutrophil Count 8.4 X10^3/uL (2.0-7.7); Basophil# 0.08 X10^3/uL; Basophil% 0.5 % (0-1); Eosinophil# 0.07 X10^3/uL; Eosinophils% 0.5 % (0-5); Hematocrit 43.6 % (37-47); Hemoglobin 14.7 g/dL (12.0-15.0); Lymphocyte # 5.21 X10^3/ul (0.83-4.51); Lymphocyte % 35.3 % (19-41); Mean Corp Hgb Conc 33.7 g/dL (32-36); Mean Corpuscular Hgb 30.4 pg (27.0-32.0); Mean Corpuscular Volume 90.3 fL (81-99); Mean Platelet Vol. 10.6 fl (6.2-12.0); Monocyte# 0.93 X10^3/uL; Monocyte% 6.3 % (0-10); NRBC Flagged by Analyzer 0 % (0-5); Neutrophil # 8.42 X10^3/uL (2.7-7.7); Neutrophil % 57.1 % (47-70); POSITIVE DIFFERENTIAL YES; Platelet Count 438 K/mm3 (150-450); RBC Distribution Width CV 12.6 % (11.6-14.6); RBC Distribution Width SD 41.9 fl (35.1-43.9); Red Blood Count 4.83 M/mm3 (4.2-5.4); White Blood Count 14.8 K/mm3 (4.4-11.0)
[2021-05-09 17:42] LABS: Anion Gap 4 (5-15); BUN 16 mg/dL (7-18); Calcium,Total 9.3 mg/dL (8.5-10.1); Chloride 103 mmol/L (98-107); Creatinine, Serum 0.84 mg/dL (0.55-1.02); EST Glomerular Filtration Rate 84 mL/min (>60); Est Glom Filt Rate - Afr Amer 101 mL/min (>60); Glucose 95 mg/dL (74-106); Potassium 4.1 mmol/L (3.5-5.1); Rheumatoid Factor < 10.0 IU/mL (<15); Sodium Level 137 mmol/L (136-145)
[2021-05-09 17:46] LABS: Differential Indicated SCAN CRITERIA MET
[2021-05-09 18:22] LABS: Anisocytosis RARE; Atypical Lymphocyte RARE %; Macrocytosis RARE; Platelet Estimate SLT INC (ADEQ); Red Cell Morphology N CHROM NORMAL (NORM C&C)
[2021-05-10 08:25] LABS: Magnesium 2.2 mg/dL (1.6-2.6)
[2021-05-10 09:27] LABS: HIV - WCH Non-Reactive (Nonreactive); Hepatitis B Surface Antibody Reactive; Hepatitis C Antibody Non-Reactive (Nonreactive)
[2021-05-11 14:20] LABS: Hepatitis A AB, Total Positive (Negative)
--- NOTE | 2021-05-16 13:51 | PCM.HP.BLA ---
History and Physical Date of Admission: 05/18/21 [facility] [id number] [id number] OFFICE VISITDate of Service: 04/13/21 MR#:[id number]:[id number]: NATHALIA KENT #:[id number]:1990 Provider:Dr. Jerardo Borrero, Age/Sex: 30/F Location:[place]:Signed Intake Vital Signs 04/13/21 13:38 Height 5 ft 5 in Weight: 208 lb BMI 34.6 Intake Visit Reasons: Lumbar spine Is patient in pain?: Yes Pain scale (1-10): 6 Allergies minocycline Allergy (Verified 04/13/21 13:40) other acetaminophen [From Vicodin] Adverse Reaction (Verified 04/13/21 13:40) Nausea/Vom/Diarrhea hydrocodone [From Vicodin] Adverse Reaction (Verified 04/13/21 13:40) Nausea/Vom/Diarrhea metoclopramide [From Reglan] Adverse Reaction (Verified 04/13/21 13:40) Other promethazine [From Phenergan] Adverse Reaction (Verified 04/13/21 13:40) Other Medications norethindrone (contraceptive) 0.35 mg tablet 0.35 mg PO QDAY #84 tab 05/25/20 [Rx Confirmed 04/13/21] omeprazole 20 mg capsule,delayed release 20 mg PO DAILY 05/25/20 [History Confirmed 04/13/21] nebivolol [Bystolic] 5 mg PO DAILY 03/26/21 [History Confirmed 04/13/21] PFSH Medical History Hypertension Migraines PCOS (polycystic ovarian syndrome) Surgical History s/p polyp removal Family History Mother Hypertension Grandfather Prostate cancer Other Ovarian cancer Social History (Updated 04/13/21 @ 13:41 by Vandana Pope) household members: spouse and children number of children: 2 current occupational status: employed current occupation: [employer] history of recent travel: No sexually active: Yes Smoking Status: Current every day smoker tobacco type: cigarettes alcohol intake: current alcohol intake frequency: holidays/special occasions only substance use type: does not use caffeine: Yes what type of physical activity do you participate in: weight training frequency: 1-2 times per week seatbelt use: always do you feel safe at home: Yes additional social history: - [place] Lumbar spine Details: Parts of this documentation were recorded by a scribe, this documentation accurately reflects the service provided and the decisions made by me, Dr. Jerardo Borrero, DO 04/13/21 2279. NATHALIA KENT is a 30 year old F here today for new patient for low back pain. Patient notes that she has had low back pain since about September. Patient notes that she fell last year but is unsure if that is the cause of her pain. Patient denies any prior surgeries. She complains of pain over her left low back, into her left buttock and into her lateral leg into her calf and foot. Patient has numbness and tingling into her foot. She complains of weakness into her left leg. She completed 13 visits at [facility] of physical therapy which was slightly helpful at the beginning and then her pain worsened. Patient has had [address] Seaman which were not helpful at all. She currently sees a chiropractor with a little relief. Patient takes tylenol and ibuprofen for pain as needed. She had xrays and an MRI of her lumbar spine. Nathalia is a most pleasant young lady 30 years old has chief complaint of pain in the left side of her back that radiates into her left buttocks and down her left leg and what seems to be mostly an L5 dermatome. This started last spring. She has had the treatments as above. I did ask her to stop seeing the chiropractor. He states that she feels weakness in her leg. This is more disconcerting that her pain. She denies bowel or bladder dysfunction. On examination she has very positive tension signs and very positive straight leg raising on the left side. She can only forward bend slightly because it sends the pain down her buttocks and thigh and leg. She has peroneal weakness on the left as compared to the right. She has EHL and anterior tibialis weakness also. Thus it is involving not only the L5 nerve but the S1 nerve. Her left Achilles reflex is completely absent. Oddly enough the left posterior tibialis reflex is the same as the right 2+ and equal. Her patellar reflexes of course are 3+ and equal bilaterally. She has no long tract signs. Clonus is absent Babinski's are downgoing. The MRI scan demonstrates that she has a large herniation at L4-5 more to the left side. This obviously is big enough that is not only compressing the L5 nerve but also the S1 nerve on the left side. With her significant neurological deficit and the fact that she is been hurting for this long it is time for surgical intervention to decompress the L5 and the S1 nerve roots on the left side. I will see her again at preop. LUIS DANIEL Yu Reports back pain, Reports muscle weakness, Reports numbness, Reports radiating pain into limb, Reports stiffness and Reports tingling Neuro Yes numbness and Yes tingling Coding Level of Care Code Off vis,new,level 3 Diagnoses Radiculopathy due to disorder of intervertebral disc Time Spent (min) 30 Assessment and Plan Assessment and Plan (1) Radiculopathy due to disorder of intervertebral disc
[2021-05-18] VITALS (12 sets, daily range): BP systolic 107–145; BP diastolic 61–92; PULSE 70–94; RESP 14–20; TEMP 35.8–37.1; O2SAT 94–100; BMI 34.8; BMI 34.9
[2021-05-18] MEDS: Lactated Ringers 1,000 ML 15 ML IV (05:55)
[2021-05-18 06:24] LABS: Internal QC Validated? YES +Cl - CLEAR BKGD; Pregnancy, Urine Negative Negative
[2021-05-18] MEDS: Acetaminophen 500 MG Tablet 1000 MG PO (06:30)
--- NOTE | 2021-05-18 07:30 | DISC_PTH ---
PATIENT: NIKKI KENT LOC: MS2 U#:[id number] AGE/SX: 30/F ROOM: MS206 RE05/18/[address]: Dr. Jc Hopper DO : 1990 BED: 1 DIS: 05/20/2021 SPEC #: [id number] RECD: 05/18/21 11:22 STATUS: TAYLOR ML #: [id number] FEI: 05/18/21 07:[address]: Jerardo Borrero DEPT: SURGICAL PATHOLOGY RECD BY: Micaela Mobley ENTERED: 05/18/21 13:10 SP TYPE: DISC OTHR DR: Dr. Dinesh Koenig MD Tissues: Intervertebral disc, NOS Procedures: Surgery Specimen Level III HEADER OPERATION: ERAS, lumbar laminectomy discectomy L4-5 PRE-OP DIAGNOSIS: Radiculopathy due to disorder of intervertebral disc TISSUE SUBMITTED: Disc L4-5 MICROSCOPIC DIAGNOSIS Intervertebral disc, L4-5, discectomy: Fragments of intervertebral disc with degenerative and reparative change. AM:anna 05/19/2021 MICROSCOPIC DESCRIPTION Slides are reviewed. GROSS DESCRIPTION Received in fixative is one container labeled with the patient's name and designated disc L4-5. The specimen consists of multiple irregular fragments of indurated, pink-white soft tissue that in aggregate measure 5 x 3 x 1 cm. Remanufacturing Technician portions are submitted in one cassette. / AM:anna 05/18/21 TC:5 CPT: 63799
[2021-05-18] MEDS: Cefazolin 2 GM in 0.9% Normal Saline 100 ML IV (07:31)
--- NOTE | 2021-05-18 08:41 | RAD_ITS ---
STUDY: X-RAY - LUMBAR SPINE REASON FOR EXAM: Female, 30 years old. LAMINECTOMY DISCECTOMY L4-5, LEFT TECHNIQUE: 1 view(s) of the lumbar spine were obtained. COMPARISON: None FINDINGS: The localization instrument is at the L5-S1 level. RAD/Spine 1 View Any Level IMPRESSION: The localization instrument is at the L5-S1 level. Electronically Signed: Fredy Short MD at 13:55 EST , Service support ,
[2021-05-18] MEDS: THROMBIN (RECOMBINANT) 20,000 UNIT VIAL 20000 UNIT TOPICAL (09:22)
--- NOTE | 2021-05-18 09:57 | PCM.OPRPT ---
Report of Operation Date of Procedure: 05/18/21 Description of Surgical Findings:: Preoperative diagnosis: Herniated disc L4-5 on the left with severe left L5 radiculopathy Postoperative diagnosis: The same Procedure: lumbar laminectomy discectomy L4-5 on the left CPT code 65791 Surgeon: Dr. Borrero payroll and benefits assistant: Norah CASTANEDA Anesthesia: General endotracheal anesthesia administered by [facility] EBL: 20 cc Drains: None Complications: Very small dural hole Procedure: Patient was taken to the OR where she was placed under general endotracheal anesthesia. A Abbasi catheter was inserted and neuro monitoring placed their leads and the patient. She was then placed in prone position on the Fredi frame. After proper positioning with care to protect her bony prominences her breasts her cervical spine and facial features her ulnar nerves of both elbows and the brachial plexus bilaterally the back was prepped and draped in standard fashion of the mid lateral incision centered over the area that we thought it was L4-5. Subcutaneous tissues were incised length of skin incision I elevated the paravertebral muscles of the left side elevating off the lamina of what we thought was 4 5 however with an intraoperative x-ray we found that it was L5-S1. Thus we simply moved up 1 level. As I had the paravertebrals lifted over the lamina and for 5 facet a Isabella retractor was then put in place. I then release ligamentum flavum off the underside of the with lamina small angled curettes. The laminectomy was then carried out using 45 degree Kerrison rongeurs. I then released the ligamentum flavum off the underside of the top of the L5 lamina and proceeded to remove the ligamentum flavum with 45 degree Kerrison rongeurs. Then slowly retracted the nerve root and the dura towards the midline exposing the large extruded fragment at L4-5. Some of it was subligamentous I then used a 15 blade to cut around it and then was able to remove several large pieces of extruded fragments. I then used both of mine straight pituitary rongeurs to remove disc from in the disc base. Once we were done we noted that we had a tiny bit of CSF fluid is seen coming from the depths I was able to look under the very base of the nerve root and was found to be a tiny hole perhaps size of a needle we thoroughly irrigated prior to closure we placed a small piece of DuraGen directly over this whole which completely stopped it. Because her bleeding was so little during the case and the fact that he she did have a small dural leak we decided not to put a drain in we did placed a amniotic membrane directly over the laminotomy site at the Gelfoam over the top of that. We then closed the lumbar fascia using [id number] suture with #1 Vicryl followed by closure of subcutaneous tissues in layers with 0 Vicryl and 2-0 Vicryl in interrupted fashion and the skin was approximated using skin clips sterile dressings were then applied she was then recovered in the OR and moved to her hospital and taken to recovery in satisfactory condition. This is the end of operative summary on Nathalia Saucedo. This is Dr. Borrero dictating.
[2021-05-18] MEDS: Lactated Ringers 1,000 ML 100 ML IV ×2 (11:00→18:01)
[2021-05-18] MEDS: traMADol 50 MG Tablet PO (14:42)
[2021-05-18] MEDS: Morphine 4 MG/ML Syringe IV ×2 (14:48→21:42)
[2021-05-18] MEDS: Cefazolin 1 GM/50 ML BAG IV (16:27)
--- NOTE | 2021-05-18 16:50 | PCS.PANDOC ---
PANDEMIC DOCUMENTATION INITIATED: Date: Time: 5176
--- NOTE | 2021-05-18 17:28 | PCM.PN.HOSP ---
Subjective Subjective Hospitalist consult from Dr. Borrero for medical management. This is a 30-year-old female with history of PCOS, hypertension and GERD is being admitted after elective lumbar laminectomy discectomy L4-5 on the left for herniated disc L4-5 on left with severe left L5 radiculopathy. Patient's said she had sciatica pain with radiation to left lower extremity along buttocks along with numbness tingling sensation in left foot and toe. She reported also mild weakness. Usually her blood pressure is controlled and runs systolic 100 in PCP office as told by the patient. She is on contraceptive pill for PCOS. Currently, she denies chest pain, shortness of breath, palpitation. She is laying supine after surgery. Constitutional: No fatigue or weakness. HEENT: Reports systems reviewed and no addt'l complaints, except as documented Respiratory/Chest: Denies chest pain, shortness of breath at rest or with exertion Gastrointestinal: Denies coffee ground emesis, hematemesis or vomiting Genitourinary: Abbasi catheter. Clear urine denies burning urination or new urinary tract symptoms Musculoskeletal: Reports joint pain and limited range of motion Neurologic: Denies seizure-like activity skin: No ulcer. No rash Endocrinology: Reports systems reviewed and no addt'l complaints, except as documented Hematologic/Lymphatic: Reports systems reviewed and no addt'l complaints, except as documented Rest 12 ROS are negative except as mentioned in HPI Objective Data Objective Data Vital Signs: Vital Signs Temp Pulse Resp BP Pulse Ox 98.3 F 76 18 110/61 96 05/18/21 16:15 05/18/21 16:15 05/18/21 16:15 05/18/21 16:15 05/18/21 16:15 Oxygen Flow Rate (L/min) 6 Oxygen Delivery Method Room Air Weight: 210 lb Body Mass Index (BMI) 34.9 Intake & Output: Intake and Output for Last 24 Hours 05/16/21 05/17/21 05/18/21 23:59 23:59 23:59 Intake Total 1265.5 / 1265.5 Output Total 1500 / 1500 Balance -234.5 / -234.5 Lab / Micro Data Result Diagrams: 05/09/21 16:48 05/09/21 16:48 Labs: Laboratory Results - last 24 hr 05/18/21 05:45: Urine Test Negative Micro: Microbiology 05/09/21 16:57 Nasal Secretion Nasal Screen MRSA/MSSA - Final Radiography Diagnostic Testing: Radiology Impression Spine X-Ray 05/18/21 08:41 IMPRESSION: The localization instrument is at the L5-S1 level. Electronically Signed: Fredy Short MD at 13:55 EST , Service support , Physical Exam Narrative General: Alert, Oriented x3, Cooperative. Obesity grade 3 BMI 34.9 kg/m? HEENT: Atraumatic, PERRLA, EOMI, Normocephalic Oral: No Gingival or Mucosal Lesions/ Ulcerations Neck: Supple, No JVD, Negative Carotid Bruits Lungs: Air entry equal in bilateral lung bases. No crepitation/rhonchi Cardiovascular: Regular rate, Regular Rhythm, Normal S1, Normal S2, No murmurs Abdomen: Bowel Sounds Present, Soft, Non Tender, Non-Distended : Abbasi catheter. Clear urine. No renal angle tenderness. No suprapubic tenderness. Extremities: No edema, Capillary Refill Less than 3 Seconds Skin: No rashes, No breakdown Musculoskeletal/spine: Status post lumbar laminectomy surgery. Patient supine position and told to lay flat. Neurological: Cranial nerves II-XII grossly intact, DTR 2+/4. Muscle power at ankle and toe level 5/5. Did not do complete motor exam as she just had surgery. Psych/Mental Status: Normal Affect, Appropriate. Assessment & Plan Assessment/Plan (1) Herniated nucleus pulposus, L4-5 left: PLAN: 1. Herniated disc L4-5 on left with severe left L5 radiculopathy: Patient had lumbar laminectomy discectomy L4-5 on left on 05/18/2021. Pain control. PT OT. Patient has Abbasi catheter draining clear urine. Patient feels mild nausea otherwise no vomiting. Does not feel numbness or tingling in left leg. 2. Hypertension: On Bystolic 5 mg nightly. Hold for SBP less than 130 mmHg 3. PCOS: On norethindrone, contraceptive pill. 4. GERD: Pantoprazole. Currently patient does not have any active medical issues going on. Hospitalist to follow peripherally as needed Charges/Coding Visit Charges Inpatient E&M: 20740 Init Hosp L2
[2021-05-18] MEDS: Ondansetron 4 MG/2 ML Vial IV (17:36)
[2021-05-19] VITALS (7 sets, daily range): BP systolic 123–140; BP diastolic 70–86; PULSE 80–108; RESP 16–18; TEMP 36.2–36.8; O2SAT 93–98
[2021-05-19] MEDS: Senna/Docusate Sodium 1 Tablet 2 TABLET PO ×3 (00:32→21:08)
[2021-05-19] MEDS: Pantoprazole Sodium 40 MG Tablet PO ×2 (00:32→21:07)
[2021-05-19] MEDS: Cefazolin 1 GM/50 ML BAG IV (00:33)
[2021-05-19] MEDS: Morphine 4 MG/ML Syringe IV ×6 (02:23→21:06)
[2021-05-19] MEDS: Lactated Ringers 1,000 ML 100 ML IV (05:47)
--- NOTE | 2021-05-19 07:54 | PCS.PANDOC ---
PANDEMIC DOCUMENTATION INITIATED: Date: 02/14/2021 Time: 190
[2021-05-19] MEDS: Ensure Surgery 237 ML LIQUID PO ×3 (09:33→16:41)
--- NOTE | 2021-05-19 10:30 | CASEMGMT ---
RN CM Face to Face with patient for initial transition planning/care coordination assessment. RN CM introduced self and role at [facility]. Patient lying in bed, alert and oriented. Patient willing to participate in assessment and is able to answer all questions appropriately. Care providers, pharmacy, and demographics verified. Patient wishes to discharge home, denies need for home health at this time. Patient states she has no further needs or concerns at this time. CM to follow for discharge planning needs that may arise. PCP: Arya Specialists: Josiane, [facility]; [place], spinal surgeon. Preferred Pharmacy: [facility] Retail Insurance: Prescription Benefit: yes Living Will/HPOA: none LNOK: Living Arrangements: Patient live with in a 2 story home with access for bed and bath on first floor. 5 steps to enter the home. Patient states she was independent and able to ambulate stairs prior to surgery. Transportation: self/ DME/HHC: patient denies DME or previous HHC. Will monitor for need for walker at discharge. Disposition Plan: Patient to discharge home with family support and follow-up plans in place. Elayne ELENA, RN, CM
--- NOTE | 2021-05-19 13:54 | DCINST_ITS ---
Discharge Instructions Follow Up Care Test Results: Test results from this visit will be discussed in further detail at your follow-up appointment, if applicable. Discharge Plan Admission Admit Date/Time: 05/18/21 09:49 Attending Provider: Jc Hopper Primary Care Provider: Dinesh Koenig Chi Consulting Providers: Carole Galeana ; Leanne Diaz ; Arben Garrison ; Omaira Sheppard ; Pepe Washington ; Des العلي ; Jc Hopper ; Anthony Holman ; Gallo Holman ; Lobo Brown ; Joseph Mcmanus ; Gaetano Molina ; Belle Good ; Delon Avendaño ; Viviane Mckeon ; Bobby Verma ; Clement Covington ; Paras Rivera ; Ga Styles ; Yancy Velasco CONCRETE BOOM PUMP OPERATOR ; Melissa Ward ; Aiad Boyce CONCRETE BOOM PUMP OPERATOR ; Delon Sanon NP ; Terra Otto ; Cheyanne Wright Discharge Orders/Prescriptions Prescriptions: No Action omeprazole 20 mg capsule,delayed release(DR/EC) 40 mg PO QHS RF: 0 norethindrone (contraceptive) [Rica] 0.35 mg tablet 0.35 mg PO QDAY Qty: 84 RF: 4 nebivolol [Bystolic] 5 mg Tablet 5 mg PO QHS RF: 0 polyethylene glycol 3350 [Miralax] 17 gram Powder In Packet 17 g PO PRN PRN (Reason: Constipation) RF: 0 Referrals / Follow Up: Jerardo Borrero DO [STAFF PHYSICIAN] - Dinesh Koenig Chi, MD [Primary Care Provider] - Disposition Disposition (needs filled in before D/C Order can be placed): Home, Self Care
--- NOTE | 2021-05-19 13:56 | PCM.DC.SUM ---
Providers Date of Admission: 05/18/21 Primary Care Physician: Dr. Dinesh Koenig MD Consultations 05/18/21 10:50 Consult: Hospitalist Routine Consulting Provider: Cinthya Petersen Reason for Consult: Medical Management EMERGENT Consult: No MD Notified: Yes Date Notified: 05/18/21 Time Notified: 17:09 Method of Notification: Text Reason For Visit: LUMBAR LAMINECTOMY DISCECTOMY L4-5 LEFT Diagnosis Discharge Diagnosis (1) Herniated nucleus pulposus, L4-5 left: Status: Acute Code(s): M51.26 - Other intervertebral disc displacement, lumbar region Medications at Discharge Home Medications norethindrone (contraceptive) 0.35 mg tablet 0.35 mg PO QDAY #84 tab 05/25/20 omeprazole 20 mg capsule,delayed release 40 mg PO QHS 05/25/20 nebivolol [Bystolic] 5 mg PO QHS 03/26/21 polyethylene glycol 3350 [Miralax] 17 g PO PRN PRN 05/06/21 Hospital Course Summary of Care Provided Hospital Course: Is Dr. Borrero dictating discharge summary on [facility]. This patient was admitted yesterday May 18 has been discharged today May 19. The admitting diagnosis herniated disc L4-5 on the left. Discharge diagnoses are the same. Date of admission she underwent lumbar laminectomy discectomy L4-5 on the left. Had a small dural leak which is why we kept her until today. Get her up today that his therapy will she is doing well up we will let her go home. [place] her hospital course is unremarkable other than the fact that she had to stay flat on her back until today. The dressing is dry. Neurologically she is intact. She relates that her leg pain is completely gone. She was given post laminectomy protocol regarding her activities. Told when to remove her dressing which would be in 4 days. She is to take shower in 5 days. They are to leave it uncovered once the dressing comes off. Already has an appointment to see me in the office. Not to drive until I see her. Give her hydrocodone for pain. Even though it is listed that she is allergic to hydrocodone she is not allergic to hydrocodone. Her sick once because she took it on an empty stomach. Promised to take it with food. This is the end of discharge summary on [facility]. This is Dr. Borrero dictating. Weight / BMI Weight Weight: 210 lb Body Mass Index (BMI) 34.9 ABG / Lab / Microbiology Data Result Diagrams: 05/09/21 16:48 05/09/21 16:48 Microbiology: Microbiology 05/09/21 16:57 Nasal Secretion Nasal Screen MRSA/MSSA - Final Radiography Diagnostic Testing: Radiology Impression Spine X-Ray 05/18/21 08:41 IMPRESSION: The localization instrument is at the L5-S1 level. Electronically Signed: Fredy Short MD at 13:55 EST , Service support , Meaningful Use Info Meaningful Use Diagnoses (Choose all that apply): None applicable Discharge Plan Admission Admit Date/Time: 05/18/21 09:49 Attending Provider: Jc Hopper Primary Care Provider: Dinesh Koenig Chi Consulting Providers: Carole Galeana ; Leanne Diaz ; Arben Garrison ; Omaira Sheppard ; Pepe Washington ; Des العلي ; Jc Hopper ; Anthony Holman ; Gallo Holman ; Lobo Brown ; Joseph Mcmanus ; Gaetano Molina ; Belle Good ; Delon Avendaño ; Viviane Mckeon ; Bobby Verma ; Clement Covington ; Paras Rivera ; Ga Styles ; Yancy Velasco AIRCRAFT SEAT UPHOLSTERER ; Melissa Ward ; Aida Boyce NP ; Delon Sanon NP ; Terra Otto ; Cheyanne Wright Discharge Orders/Prescriptions Prescriptions: No Action omeprazole 20 mg capsule,delayed release(DR/EC) 40 mg PO QHS RF: 0 norethindrone (contraceptive) [Rica] 0.35 mg tablet 0.35 mg PO QDAY Qty: 84 RF: 4 nebivolol [Bystolic] 5 mg Tablet 5 mg PO QHS RF: 0 polyethylene glycol 3350 [Miralax] 17 gram Powder In Packet 17 g PO PRN PRN (Reason: Constipation) RF: 0 Referrals / Follow Up: Jerardo Borrero DO [STAFF PHYSICIAN] - Dinesh Koenig Chi, MD [Primary Care Provider] - Disposition Disposition (needs filled in before D/C Order can be placed): Home, Self Care
[2021-05-19] MEDS: traMADol 50 MG Tablet PO ×2 (15:04→23:27)
[2021-05-19] MEDS: diazePAM 5 MG Tablet PO ×2 (16:44→23:28)
[2021-05-19] MEDS: 0.9% Saline Lock 10 ML Syringe IV ×3 (16:44→21:06)
[2021-05-19] MEDS: Ondansetron 4 MG/2 ML Vial IV (16:44)
[2021-05-20 02:00] VITALS: BP 114/78; PULSE 89; RESP 18; TEMP 36.9; O2SAT 94
[2021-05-20] MEDS: traMADol 50 MG Tablet PO ×2 (05:33→12:21)
[2021-05-20] MEDS: diazePAM 5 MG Tablet PO ×2 (05:34→12:22)
[2021-05-20 07:25] VITALS: O2SAT 92
[2021-05-20] MEDS: Senna/Docusate Sodium 1 Tablet 2 TABLET PO (08:05)
[2021-05-20] MEDS: Ensure Surgery 237 ML LIQUID PO ×2 (08:05→11:36)
[2021-05-20 08:10] VITALS: BP 123/82; PULSE 88; RESP 16; TEMP 36.6; O2SAT 96
[2021-05-20] MEDS: Ondansetron 4 MG/2 ML Vial IV (09:09)
[2021-05-20] MEDS: 0.9% Saline Lock 10 ML Syringe IV (09:09)
--- NOTE | 2021-05-20 11:49 | CASEMGMT ---
Addendum entered by Az Sierra 05/20/21 16:20: Walker has been delivered to pt's room Original Note: FLAKITA LEDEZMA NOTE: Pt being discharged. PT notes reviewed. No additional therapy recommended. WW is recommended. FLAKITA LEDEZMA to room to talk w/pt. Discussion w/pt re: rehab unit, as it had come up in conversation w/her employer. Pt made aware insurance would not approve rehab unit as PT does not recommend therapy. Pt also made aware Dr Borrero does not want pt's to receive therapy @ discharge after laminectomy's and recommends pt to walk a lot. Pt voices understanding. Pt does want a walker. Reviewed list of local DME companies. Pt has no preference and states [employer] as they are affiliate of [facility]. Script obtained and faxed to [employer]. Awaiting delivery. Aida ELENA RN, CM
[2021-05-20 11:52] VITALS: BP 110/67; PULSE 91; RESP 16; TEMP 36.4; O2SAT 97
[2021-05-20 14:47] VITALS: BP 118/72; PULSE 88; RESP 16; TEMP 36.7; O2SAT 95
--- NOTE | 2021-05-20 15:57 | PHA.DC.MR ---
Pharmacy Service has performed discharge medication reconciliation for this patient. The patient's discharge medication list was reviewed for discrepancies and discrepancies were resolved. Home Medications norethindrone (contraceptive) 0.35 mg tablet 0.35 mg PO QDAY #84 tab 05/25/20 omeprazole 20 mg capsule,delayed release 40 mg PO QHS 05/25/20 nebivolol [Bystolic] 5 mg PO QHS 03/26/21 polyethylene glycol 3350 [Miralax] 17 g PO PRN PRN 05/06/21
== END 2021-05-20 16:50 | disposition home or self-care (01) ==
LOC: SDC 16:07 → MS2 16:07
PROVIDERS: Anesthesiology; Admitting Provider Orthopaedic Surgery; PCP Family Medicine Geriatric Medicine; Referring Provider Orthopaedic Surgery
PROC: (CPT 63030; principal; 2021-05-18 07:00)
DX: M51.16 Intervertebral disc disorders with radiculopathy, lumbar region (principal); I10 Essential (primary) hypertension; E28.2 Polycystic ovarian syndrome; F17.210 Nicotine dependence, cigarettes, uncomplicated; K21.9 Gastro-esophageal reflux disease without esophagitis; G97.41 Accidental puncture or laceration of dura during a procedure
CPT/HCPCS: 63030; 36415; 72020; 80048; 81025; 83735; 85025; 86431; 86703; 86706; 86708; 86803; 87081; 88304; 96361; 96365; 96366; 96375; 96376; 97162; 97530; 99218; 99251; 99406; J7120; A4216; G0378; G0463; J2405; J3490

== ENCOUNTER 2021-08-04 08:49 | Outpatient (CLI) | payer OTHER, SELFPAY | END 2021-08-04 23:59 | disposition short-term general hospital (02) | LOC: PSN 08:50 | PROVIDERS: PCP Family Medicine Geriatric Medicine; Referring Provider Family Medicine Geriatric Medicine; Visit Provider Family Medicine Geriatric Medicine | DX: R68.83 Chills (without fever) (principal) | CPT/HCPCS: 87635; 87804; 87807; C9803; U0003; U0005 ==

== ENCOUNTER 2021-09-02 12:01 | Outpatient (CLI) | payer OTHER, SELFPAY ==
[2021-09-02 12:33] LABS: Absolute Lymphocyte Count 5.63 X10^3/uL (0.83-4.51); Absolute Neutrophil Count 7.2 X10^3/uL (2.0-7.7); Basophil# 0.08 X10^3/uL; Basophil% 0.6 % (0-1); Eosinophil# 0.08 X10^3/uL; Eosinophils% 0.6 % (0-5); Hematocrit 43.8 % (37-47); Hemoglobin 14.7 g/dL (12.0-15.0); Lymphocyte # 5.63 X10^3/ul (0.83-4.51); Lymphocyte % 40.7 % (19-41); Mean Corp Hgb Conc 33.6 g/dL (32-36); Mean Corpuscular Hgb 30.9 pg (27.0-32.0); Mean Platelet Vol. 10.7 fl (6.2-12.0); Monocyte# 0.81 X10^3/uL; Monocyte% 5.9 % (0-10); NRBC Flagged by Analyzer 0 % (0-5); Neutrophil # 7.17 X10^3/uL (2.7-7.7); Neutrophil % 51.8 % (47-70); POSITIVE DIFFERENTIAL YES; Platelet Count 394 K/mm3 (150-450); RBC Distribution Width CV 12.3 % (11.6-14.6); RBC Distribution Width SD 41.8 fl (35.1-43.9); Red Blood Count 4.76 M/mm3 (4.2-5.4); White Blood Count 13.8 K/mm3 (4.4-11.0)
[2021-09-02 12:35] LABS: Differential Indicated SCAN CRITERIA MET
[2021-09-02 13:11] LABS: Vitamin D,25 Hydroxy 20.5 ng/mL
[2021-09-02 13:25] LABS: ALB/GLOB Ratio 0.8 RATIO (0.9-2.4); AST(SGOT) 19 U/L (15-37); Alanine Aminotransfer ALT/SGPT 44 U/L (13-56); Albumin, Serum 3.8 g/dL (3.2-5.0); Alkaline Phosphatase 61 U/L (45-117); Anion Gap 7 (5-15); BUN 16 mg/dL (7-18); BUN/Creat Ratio 20.8 RATIO (10-20); Chloride 103 mmol/L (98-107); Cholesterol 196 mg/dL (200); Creatinine, Serum 0.77 mg/dL (0.55-1.02); EST Glomerular Filtration Rate 93 mL/min (>60); Est Glom Filt Rate - Afr Amer 112 mL/min (>60); Globulin 4.5 g/dL (2.2-4.2); Glucose 85 mg/dL (74-106); High Density Lipoprotein 60 mg/dL; Potassium 4.1 mmol/L (3.5-5.1); Protein, Total 8.3 g/dL (6.4-8.2); Sodium Level 134 mmol/L (136-145); Thyroid Stim Hormone (TSH) 1.56 uIU/mL (0.358-3.74); Triglycerides 153 mg/dL; Very Low Density Lipoprotein 31 mg/dL (5-40)
== END 2021-09-02 23:59 | disposition home or self-care (01) ==
LOC: POLAB3 12:01
PROVIDERS: PCP Family Medicine Geriatric Medicine; Visit Provider Family Medicine Geriatric Medicine
DX: I10 Essential (primary) hypertension (principal); E78.5 Hyperlipidemia, unspecified; E55.9 Vitamin D deficiency, unspecified
CPT/HCPCS: 36415; 80053; 80061; 82306; 84443; 85025

== ENCOUNTER 2021-09-21 07:42 | Outpatient (CLI) | payer OTHER, SELFPAY ==
[2021-09-28 14:00] LABS: HPV APTIMA, High Risk Negative (Negative)
== END 2021-09-21 23:59 | disposition home or self-care (01) ==
LOC: LABSPEC 09-22 07:43
PROVIDERS: PCP Family Medicine Geriatric Medicine; Visit Provider Nurse Practitioner Women's Health
DX: Z12.4 Encounter for screening for malignant neoplasm of cervix (principal)
CPT/HCPCS: 87624; 88175; G0145

== ENCOUNTER 2021-09-30 12:50 | Outpatient (CLI) | payer OTHER, SELFPAY ==
--- NOTE | 2021-09-30 12:53 | US_ITS ---
STUDY: ULTRASOUND OF THE FEMALE PELVIS - COMPLETE REASON FOR EXAM: Female, 30 years old. PCOS LMP: Unknown. TECHNIQUE: Transabdominal and Transvaginal TECHNICAL QUALITY: Adequate. COMPARISON: None. FINDINGS: The uterus is anteverted and is in a midline position. The uterus measures 8.3 cm x 5.2 cm x 4.3 cm. Normal uterine cervix. The endometrium measures 6 mm in thickness, and is hyperechoic. There is no demonstrated endometrial mass. There is no demonstrated myometrial mass. I.U.D. - The patient does not have an I.U.D. The right ovary is visualized. The right ovary measures 3.2 cm x 1.7 cm x 1.8 cm. There is no right ovarian cyst or ovarian mass. There is no visualized right adnexal mass or complex lesion. There is normal arterial and normal venous vascularity. The left ovary is visualized. The left ovary measures 3.6 cm x 3.1 cm x 2.8 cm. A dominant follicle measuring 1.6 cm x 1.5 cm is seen in the left ovary. There is no visualized left adnexal mass or complex lesion. There is normal arterial and normal venous vascularity. There is minimal fluid in the cul-de-sac. The pre void volume of the bladder was 95.2 ml. US/Transvaginal Non- IMPRESSION: A dominant follicle measuring 1.6 x 1.5 cm is seen in the left ovary. Electronically Signed: Fredy Short MD at 14:24 EDT ,
--- NOTE | 2021-09-30 12:53 | US_ITS ---
STUDY: ULTRASOUND OF THE FEMALE PELVIS - COMPLETE REASON FOR EXAM: Female, 30 years old. PCOS LMP: Unknown. TECHNIQUE: Transabdominal and Transvaginal TECHNICAL QUALITY: Adequate. COMPARISON: None. FINDINGS: The uterus is anteverted and is in a midline position. The uterus measures 8.3 cm x 5.2 cm x 4.3 cm. Normal uterine cervix. The endometrium measures 6 mm in thickness, and is hyperechoic. There is no demonstrated endometrial mass. There is no demonstrated myometrial mass. I.U.D. - The patient does not have an I.U.D. The right ovary is visualized. The right ovary measures 3.2 cm x 1.7 cm x 1.8 cm. There is no right ovarian cyst or ovarian mass. There is no visualized right adnexal mass or complex lesion. There is normal arterial and normal venous vascularity. The left ovary is visualized. The left ovary measures 3.6 cm x 3.1 cm x 2.8 cm. A dominant follicle measuring 1.6 cm x 1.5 cm is seen in the left ovary. There is no visualized left adnexal mass or complex lesion. There is normal arterial and normal venous vascularity. There is minimal fluid in the cul-de-sac. The pre void volume of the bladder was 95.2 ml. US/Pelvic (Non ) IMPRESSION: A dominant follicle measuring 1.6 x 1.5 cm is seen in the left ovary. Electronically Signed: Fredy Short MD at 14:24 EDT ,
== END 2021-09-30 23:59 | disposition home or self-care (01) ==
PROVIDERS: PCP Family Medicine Geriatric Medicine; Visit Provider Nurse Practitioner Women's Health
DX: E28.2 Polycystic ovarian syndrome (principal)
CPT/HCPCS: 76830; 76856

== ENCOUNTER → 2021-12-02 | Outpatient (CLI) | payer OTHER, SELFPAY | END | disposition home or self-care (01) | LOC: PSN 08:00 | PROVIDERS: PCP Family Medicine Geriatric Medicine; Referring Provider Family Medicine Geriatric Medicine; Visit Provider Family Medicine Geriatric Medicine | DX: R68.83 Chills (without fever) (principal); Z20.822 Contact with and (suspected) exposure to COVID-19 | CPT/HCPCS: 87426; 87804; 87807; C9803 ==

== ENCOUNTER → 2022-02-14 | Outpatient (CLI) | payer OTHER, SELFPAY ==
--- NOTE | 2022-02-14 08:32 | RAD_ITS ---
INDICATION: ABD PAIN EXAMINATION/TECHNIQUE: X-RAY - XR Abdomen W/ Decub and/or Erect Views COMPARISON: 03/30/2021 FINDINGS: Abundance of stool in the large bowel. Suggestion of scattered diverticular disease. No evidence of bowel obstruction.. No bowel or stomach distention. FREE AIR: Not assessed on a single supine view. ORGANOMEGALY: Not seen. CALCIFICATIONS: 0.9 cm calcification visualized superimposed over the mid right renal fossa. 0.7 cm calcification visualized superimposed over the mid left renal fossa. LOWER CHEST: No acute pathology. BONES AND SOFT TISSUES: No acute pathology. RAD/Abd Inc Decub and/or Erect IMPRESSION: Calcifications visualized superimposed over the renal beds Non-obstructive bowel gas pattern. Electronically Signed: Lizandro Torres MD at 8:53 EDT ,
== END | disposition home or self-care (01) ==
LOC: PSN 08:23
PROVIDERS: PCP Family Medicine Geriatric Medicine; Visit Provider Family Medicine Geriatric Medicine
DX: R10.9 Unspecified abdominal pain (principal); R68.83 Chills (without fever)
CPT/HCPCS: 74019; 87635; 87804; 87807; U0003; U0005

== ENCOUNTER → 2022-02-15 | Outpatient (CLI) | payer OTHER, SELFPAY ==
[2022-02-15 17:20] LABS: Absolute Neutrophil Count 5.9 X10^3/uL (2.0-7.7); Basophil# 0.07 X10^3/uL; Basophil% 0.6 % (0-1); Eosinophil# 0.09 X10^3/uL; Eosinophils% 0.8 % (0-5); Hematocrit 40.5 % (37-47); Hemoglobin 13.6 g/dL (12.0-15.0); Lymphocyte % 42.6 % (19-41); Mean Corp Hgb Conc 33.6 g/dL (32-36); Mean Corpuscular Volume 92.3 fL (81-99); Mean Platelet Vol. 11.6 fl (6.2-12.0); Monocyte# 0.76 X10^3/uL; Monocyte% 6.4 % (0-10); NRBC Flagged by Analyzer 0 % (0-5); Neutrophil # 5.89 X10^3/uL (2.7-7.7); Neutrophil % 49.2 % (47-70); POSITIVE DIFFERENTIAL YES; Platelet Count 423 K/mm3 (150-450); RBC Distribution Width CV 12.2 % (11.6-14.6); RBC Distribution Width SD 41.4 fl (35.1-43.9); Red Blood Count 4.39 M/mm3 (4.2-5.4)
[2022-02-15 17:54] LABS: AST(SGOT) 31 U/L (15-37); Alanine Aminotransfer ALT/SGPT 41 U/L (13-56); Albumin, Serum 3.6 g/dL (3.2-5.0); Alkaline Phosphatase 62 U/L (45-117); Anion Gap 8 (5-15); BUN 14 mg/dL (7-18); BUN/Creat Ratio 16.6 RATIO (10-20); Calcium,Total 8.7 mg/dL (8.5-10.1); Chloride 107 mmol/L (98-107); Creatinine, Serum 0.84 mg/dL (0.55-1.02); EST Glomerular Filtration Rate 83 mL/min (>60); Est Glom Filt Rate - Afr Amer 101 mL/min (>60); Globulin 3.6 g/dL (2.2-4.2); Glucose 109 mg/dL (74-106); Potassium 3.9 mmol/L (3.5-5.1); Protein, Total 7.2 g/dL (6.4-8.2); Sodium Level 137 mmol/L (136-145)
[2022-02-15 18:01] LABS: Differential Comment SCANNED; Differential Indicated SCAN CRITERIA MET
== END | disposition home or self-care (01) ==
LOC: POLAB3 15:23
PROVIDERS: PCP Family Medicine Geriatric Medicine; Visit Provider Family Medicine Geriatric Medicine
DX: R10.9 Unspecified abdominal pain (principal)
CPT/HCPCS: 36415; 80053; 85025

== ENCOUNTER → 2022-03-21 | Outpatient (CLI) | payer OTHER, SELFPAY | END | disposition home or self-care (01) | LOC: PSN 13:47 | PROVIDERS: PCP Family Medicine Geriatric Medicine; Referring Provider Family Medicine Geriatric Medicine; Visit Provider Family Medicine Geriatric Medicine | DX: R68.83 Chills (without fever) (principal); Z20.822 Contact with and (suspected) exposure to COVID-19 | CPT/HCPCS: 87633; 87635; C9803; U0003; U0005 ==

== ENCOUNTER → 2022-04-21 | Outpatient (CLI) | payer OTHER, SELFPAY ==
[2022-04-21 11:47] LABS: Hemoglobin A1c 5.6 % (3.8-5.6)
[2022-04-21 12:05] LABS: HIV - WCH Non-Reactive (Nonreactive); Hepatitis B Surface Antigen Non-Reactive (Nonreactive); Syphilis Antibodies Non-reactive
[2022-04-25 04:07] LABS: Chlamydia By Nucleic Acid AMP Negative (Negative)
[2022-04-25 17:50] LABS: Gonococcus By Nucleic Acid AMP Negative (Negative)
[2022-04-30 12:07] LABS: Testosterone, Free 0.54 ng/dL (0.10-0.85); Testosterone, Total 31 ng/dL (8-60)
[2022-04-30 13:16] LABS: Testosterone, % Free 1.74 % (0.50-2.80)
== END | disposition home or self-care (01) ==
PROVIDERS: PCP Family Medicine Geriatric Medicine; Visit Provider Registered Nurse
DX: Z20.2 Contact with and (suspected) exposure to infections with a predominantly sexual mode of transmission (principal)
CPT/HCPCS: 83036; 84402; 84403; 86703; 86780; 87340; 87491; 87591

== ENCOUNTER → 2022-05-16 | Outpatient (CLI) | payer OTHER, SELFPAY | END | disposition home or self-care (01) | LOC: PSN 08:37 | PROVIDERS: PCP Family Medicine Geriatric Medicine; Visit Provider Family Medicine Geriatric Medicine | DX: R68.83 Chills (without fever) (principal) | CPT/HCPCS: 87426; 87804; 87807 ==

== ENCOUNTER → 2023-05-10 | Outpatient (CLI) | payer OTHER, SELFPAY ==
[2023-05-10 13:47] LABS: Protein, Urine (Random) 15.8 mg/dL (<11.9); Protein:Creat Ratio 101 mg/g CRE (0-200)
[2023-05-14 22:07] LABS: Chlamydia By Nucleic Acid AMP Negative (Negative); Gonococcus By Nucleic Acid AMP Negative (Negative)
== END | disposition home or self-care (01) ==
LOC: LABSPEC 12:56
PROVIDERS: PCP Internal Medicine; Visit Provider Advanced Practice Midwife
DX: O09.91 Supervision of high risk pregnancy, unspecified, first trimester (principal); O16.1 Unspecified maternal hypertension, first trimester; Z3A.00 Weeks of gestation of pregnancy not specified
CPT/HCPCS: 82570; 84156; 87077; 87086; 87088; 87186; 87491; 87591

== ENCOUNTER → 2023-05-21 | Outpatient (CLI) | payer OTHER, SELFPAY ==
[2023-05-21 14:15] LABS: Absolute Lymphocyte Count 3.53 X10^3/uL (0.83-4.51); Absolute Neutrophil Count 8.4 X10^3/uL (2.0-7.7); Basophil# 0.04 X10^3/uL; Basophil% 0.3 % (0-1); Eosinophil# 0.11 X10^3/uL; Eosinophils% 0.9 % (0-5); Hemoglobin 13.6 g/dL (12.0-15.0); Lymphocyte # 3.53 X10^3/ul (0.83-4.51); Lymphocyte % 27.5 % (19-41); Mean Corpuscular Hgb 30.5 pg (27.0-32.0); Mean Corpuscular Volume 89.7 fL (81-99); Mean Platelet Vol. 10.5 fl (6.2-12.0); Monocyte# 0.74 X10^3/uL; Monocyte% 5.8 % (0-10); NRBC Flagged by Analyzer 0 % (0-5); Neutrophil # 8.35 X10^3/uL (2.7-7.7); Neutrophil % 65.1 % (47-70); Platelet Count 354 K/mm3 (150-450); RBC Distribution Width CV 12.5 % (11.6-14.6); Red Blood Count 4.46 M/mm3 (4.2-5.4); White Blood Count 12.8 K/mm3 (4.4-11.0)
[2023-05-21 14:40] LABS: ALB/GLOB Ratio 0.7 RATIO (0.9-2.4); AST(SGOT) 12 U/L (15-37); Alanine Aminotransfer ALT/SGPT 17 U/L (13-56); Alkaline Phosphatase 53 U/L (45-117); Anion Gap 7 (5-15); BUN 9 mg/dL (7-18); Calcium,Total 9.2 mg/dL (8.5-10.1); Chloride 105 mmol/L (98-107); Creatinine, Serum 0.64 mg/dL (0.55-1.02); EST Glomerular Filtration Rate 112 mL/min (>60); Est Glom Filt Rate - Afr Amer 136 mL/min (>60); Globulin 4.1 g/dL (2.2-4.2); Glucose 114 mg/dL (74-106); Potassium 3.7 mmol/L (3.5-5.1); Protein, Total 7.1 g/dL (6.4-8.2); Sodium Level 137 mmol/L (136-145)
[2023-05-21 14:46] LABS: Hemoglobin A1c 5.4 % (3.8-5.6)
[2023-05-21 15:11] LABS: NATERA MAILED SPECIMEN
[2023-05-21 15:19] LABS: HIV - WCH Non-Reactive (Nonreactive); Hepatitis B Surface Antigen Non-Reactive (Nonreactive); Hepatitis C Antibody Non-Reactive (Nonreactive); Rubella IgG Reactive (Nonreactive); Syphilis Antibodies Non-reactive
== END | disposition home or self-care (01) ==
LOC: PAVLAB 13:52
PROVIDERS: PCP Internal Medicine; Referring Provider Advanced Practice Midwife; Visit Provider Advanced Practice Midwife
DX: Z34.01 Encounter for supervision of normal first pregnancy, first trimester (principal); Z3A.00 Weeks of gestation of pregnancy not specified
CPT/HCPCS: 36415; 80053; 83036; 85025; 86703; 86762; 86780; 86803; 86850; 86900; 86901; 87340

== ENCOUNTER 2023-07-20 16:32 | Emergency (ER) | payer OTHER, SELFPAY ==
[2023-07-20 16:34] VITALS: BP 151/103; PULSE 94; RESP 18; TEMP 36.4; O2SAT 100; BMI 39.0
--- OUTSIDE RECORDS SUMMARY | 2023-07-20 16:58 | XMS RPT_ITS | CCD ---
Author Name Unknown Address [address] [place] [address] Organization [facility] Care Team Providers Care Car Changer Name Role Phone FILMOENAMILAGROS Referring Unavailable PROVIDER, UNKNOWN Attending Unavailable PROVIDER, [...] OberhausKay bar DO Primary Care Provider [phone] KAY JONES Primary Care Unavailable OBKAY MICHELLE Primary Care Unavailable OberhausKay bar DO Primary Care Provider [phone] KAY JONES Attending Unavailable OBKAY MICHELLE Primary [...] AMINOPHEN] Drug Allergy 08-04-19 11 Unknown [facility] (7 sources) Metoclopramide; Translations: [METOCLOPRAMIDE] Drug Allergy 05-09-20 11 Hallucinations , Other, Unknown [facility] (7 sources) Minocycline; Translations: [MINOCYCLINE] Drug Allergy 06-29-20 16 Other (See Comments), Unknown [facility] (1 source) OTHER (REVIEW COMMENTS!); Translations: [OTHER (REVIEW COMMENTS!)] Propensity to adverse reactions to drug (disorder) 12-04-19 19 [facility] (6 sources) Promethazine; Translations: [PROMETHAZINE] Drug Allergy 01-29-20 22 Hallucinations , Unknown [facility] Phone: (1 source) Acetaminophen / HYDROcodone Drug Allergy Other [facility] Medications Current Medications Medication Drug Class(es) Dates [...] 01-27-2023 Episodic Other aftercare (1 source) Other group home (current) drug therapy; Translations: [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] Onset: 3 Episodic Other [...] 165.1 cm Kay Oberhauser DO Work Phone: [facility] 05-31-2023 10:16-0500 Body mass index (BMI) [Ratio] 37.28 kg/m2 Kay Oberhauser DO Work Phone: [facility] 05-31-2023 10:16-0500 Body weight 101.61 kg Kay Oberhauser DO Work Phone: [facility] 05-31-2023 10:16-0500 Diastolic blood pressure 77 mm[Hg] Kay Oberhauser DO Work Phone: [facility] 05-31-2023 10:16-0500 Heart rate 100 /min Kay Oberhauser DO Work Phone: [facility] 05-31-2023 10:16-0500 Systolic blood pressure 133 mm[Hg] Aky Oberhauser DO Work Phone: [facility] 04-02-2023 12:57-0400 Body height 165.1 cm Kay Oberhauser DO Work Phone: [facility] 04-02-2023 12:57-0400 Body mass index (BMI) [Ratio] 36.78 kg/m2 Kay Oberhauser DO Work Phone: [facility] 04-02-2023 12:57-0400 Body weight 100.25 kg Kay Oberhauser DO Work Phone: [facility] 04-02-2023 12:57-0400 Diastolic blood pressure 80 mm[Hg] Kay Oberhauser DO Work Phone: [facility] 04-02-2023 12:57-0400 Heart rate 84 /min Kay Oberhauser DO Work Phone: [facility] 04-02-2023 12:57-0400 Systolic blood pressure 127 mm[Hg] Kay Oberhauser DO Work Phone: [facility] 02-23-2023 09:15-0400 Body height 165.1 cm Kay Oberhauser DO Work Phone: [facility] 02-23-2023 09:15-0400 Body mass index (BMI) [Ratio] 35.45 kg/m2 Kay Oberhauser DO Work Phone: [facility] 02-23-2023 09:15-0400 Body weight 96.62 kg Kay Oberhauser DO Work Phone: [facility] 02-23-2023 09:15-0400 Diastolic blood pressure 85 mm[Hg] Kay Oberhauser DO Work Phone: [facility] 02-23-2023 09:15-0400 Heart rate 76 /min Kay Oberhauser DO Work Phone: [facility] 02-23-2023 09:15-0400 Systolic blood pressure 140 mm[Hg] Kay Oberhauser DO Work Phone: [facility] 01-27-2023 18:11-0400 Body height 165.1 cm Kay Oberhauser Other Phone: [facility] 01-27-2023 18:11-0400 Body temperature 96.44 [degF] Kay Oberhauser Other Phone: [facility] 01-27-2023 18:11-0400 Body weight 99.5 kg Kay Jones Other Phone: [facility] 01-27-2023 18:11-0400 Diastolic blood pressure 99 mm[Hg] Kay Obchristopheer Other Phone: [facility] 01-27-2023 18:11-0400 Heart rate 76 /min Kay Obchristopheer Other Phone: [facility] 01-27-2023 18:11-0400 Respiratory rate 17 /min Kay Obchristopheer Other Phone: [facility] 01-27-2023 18:11-0400 SaO2% (BldA) [Mass fraction] 97 % Kay Jones Other Phone: [facility] 01-27-2023 18:11-0400 Systolic blood pressure 151 mm[Hg] Kay Obchristopheer Other Phone: [facility] 01-28-2022 03:38-0400 SaO2% (BldA) [Mass fraction] 97 % Justin Deskins DO Work Phone: [facility] [employer] 01-28-2022 03:28-0400 Diastolic blood pressure 97 mm[Hg] Justin Deskins DO Work Phone: [facility] [employer] 01-28-2022 03:28-0400 Systolic blood pressure 149 mm[Hg] Justin Deskins DO Work Phone: [facility] [employer] 01-28-2022 02:02-0400 Body height 165.1 cm Justin Deskins DO Work Phone: [facility] [employer] 01-28-2022 02:02-0400 Body mass index (BMI) [Ratio] 36.61 kg/m2 Justin Deskins DO Work Phone: [facility] [employer] 01-28-2022 02:02-0400 Body temperature 98.1 [degF] Justin Deskins DO Work Phone: [facility] 01-28-2022 02:02-0400 Body weight 99.79 kg Justin Bell DO Work Phone: [facility] 01-28-2022 02:02-0400 Heart rate 73 /min Justin Bell DO Work Phone: [facility] 01-28-2022 02:02-0400 Respiratory rate 18 /min Justin Bell DO Work Phone: [facility] [employer] Encounters Encounter Date Encounter Type Care Provider Facility Start: 05-31-2023 End: 05-31-2023 ambulatory KAY [facility] Start: 05-31-2023 End: 05-31-2023 Office outpatient visit 15 minutes Kay Jones DO Work Phone: [facility] Procedures Date Procedure Procedure [...] of 2) Zoster Vaccines (1 of 2) [facility] Start: 01-27-2033 DTaP/Tdap/Td Vaccines (9 - Td or Tdap) DTaP/Tdap/Td Vaccines (9 - Td or Tdap) [facility] Start: 12-20-2027 Lipid panel Lipid Panel [facility] Start: 11-02-2024 DTaP/Tdap/Td vaccine (8 - Td or Tdap) DTaP/Tdap/Td vaccine (8 - Td or Tdap) [facility] Start: 12-20-2023 Diabetes mellitus screening Diabetes Screening [facility] Start: 05-31-2023 End: 05-31-2023 Patient encounter procedure 05/31/2023 10:20 AM EST Office Visit [facility] [address] [place] [id number] Kay Jones DO [address] [facility] [place] [address] [facility] Start: 03-02-2023 Influenza vaccination Influenza Vaccine (#1) [facility] Start: 02-23-2023 End: 02-24-2024 Drugs of abuse screen W Reflex confirm panel - Urine Drug Screen, Urine With Reflex to Confirmation Lab Routine Pre-employment drug screening Expected: 02/23/2023 (Approximate), Expires: 02/24/2024 [facility] Service Area Work Phone: Immunizations Immunization Date Immunization Notes Care Provider Fa cility 01-27-2023 tetanus toxoid, reduced diphtheria toxoid, and acellular pertussis vaccine, adsorbed Kay Jones Other Phone: [facility] 05-26-2015 influenza virus vaccine, unspecified formulation Kay Barbitomásyosvany DO Work Phone: [facility] Work Phone: Payers Date Payer Category Payer [employer] ( [employer] others) [id number] 2022 [employer] ( and others) [employer] [id number] 2022-Present [address] [place] [address] [id number] 2021 [employer] ( and others) [facility] [id number] 2021-Present [phone] [address] [place] [address] [id number] 2018 Unknown [id number] 1989 Unknown [id number] 1989 Unknown [id number] .356 1989 Unknown [id number] .356 1989 Unknown [id number] [id number] .1069 1989 Unknown [id number] [id number] .9 1989 Unknown [id number] [id number] .1245 1989 Unknown [id number] [id number] .1245 1989 Unknown [id number] .1244 1989 Unknown [id number] [id number] .1244 1989 Unknown [id number] .1244 1989 Unknown [id number] .1244 Unknown INDUSTRIAL\INDUSTRIAL Unknown [id number] Social History Date Type Detail Facility Start: 01-28-2022 Tobacco smoking status HIIS Smokes tobacco daily [employer] Phone: End: 08-14-2022 History of tobacco use Cigarette Smoker [employer] Phone: Start: 01-28-2022 End: 12-12-2022 Tobacco use and exposure Smokeless tobacco non-user [employer] [employer] Phone: Start: 01-28-2022 End: 05-31-2023 Alcohol intake Current drinker of alcohol (finding) [facility] [employer] Phone: Start: 1990 Sex Assigned At Not on file [facility] Phone: Start: 01-18-2022 End: 05-31-2023 Exposure to SARS-CoV-2 (event) Not sure [facility] [employer] Phone: Tobacco smoking consumption unknown [facility] Start: 12-12-2022 Tobacco smoking status NHIS Ex-smoker [facility] Work Phone: End: 08-14-2022 History of tobacco use Current smoker [facility] Work Phone: Start: 12-12-2022 End: 04-02-2023 History of Social function [facility] Work Phone: Start: 12-12-2022 End: 10-02-2023 Tobacco use panel [facility] Work Phone: Start: 1990 Sex Assigned At Female [facility] Start: 12-13-2022 Gender identity Identifies as female gender (finding) [facility] Work Phone: Start: 12-13-2022 Sexual orientation Heterosexual (finding) [facility] Work Phone: History of Present illness [...] 12 weeks - seeing Dr Jeter in [place] 3. Follow up as needed Final diagnoses: [E55.9] Vitamin D deficiency [F33.41] Recurrent major depressive disorder, in partial remission (CMS/HCC) [R14.1] Gas pain [G47.33] Mild obstructive sleep apnea documented in this encounter [facility] Work Phone: History of Present illness [...] HPI Patient is here today for employment [employer]. 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 She reports that she stopped her control, and was started on transamic acid which is helping with the bleeding, Her director of manufacturing operations is BINGO ATTENDANT with Dr Toño Perez in [place]. 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 Patient also has mary having some sinus and throat issues for [...] obstructive sleep apnea documented in this encounter [facility] Work Phone: Evaluation note Note Date & Type Note Facility documented in this encounter [facility] Work Phone: Evaluation note Note Date & Type Note Facility documented in this encounter [facility] Work Phone: Evaluation note Note Date & Type Note Facility documented in this encounter [facility] Work Phone: Evaluation note Note Date & Type Note Facility documented in this encounter [facility] Work Phone: Hospital Discharge instructions Attachments Note Date & Type Note Facility Hospital Discharge instructions The following attachments cannot be sent through Care Everywhere.Ankle Sprain (Cameroonian)documented in this [facility] Work Phone: Reason for referral (narrative) Consultation (Routine) - Authorized Note Date & Type Note Facility Referral ID Status Reason Start Date Expiration Date V isits Requested Visits Authorized [id number] Authorized 02/23/2023 08/22/2023 1 1 [facility] Work Phone: Summary Purpose Family History [...] DATE CREATED AUTHOR AUTHOR'S ORGANIZ ATION 01/25/2020 [facility] ([place]) DATE CREATED AUTHOR AUTHOR'S ORGANIZ ATION 07/29/2021 [facility] DATE CREATED AUTHOR AUTHOR'S ORGANIZ ATION 12/25/2022 [facility] DATE CREATED AUTHOR AUTHOR'S ORGANIZ ATION 02/10/2023 [facility] DATE CREATED AUTHOR AUTHOR'S ORGANIZ ATION 03/19/2023 [facility] DATE CREATED AUTHOR AUTHOR'S ORGANIZ ATION 06/03/2023 [facility] Reason for Visit (unrecogniz ed section and content) Reason Comments Follow-up 4 month URI Exposed to moldCough , congestion, swollen tonsils Symptoms started 2-3 weeks ago Employment 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 physical form Specialty Diagnoses / Procedures Referred By Iwona conway Referred To Contact Primary Care Procedures Follow Up In Primary Care Kay Jones DO [address] [place] [address] Referral ID Status Reason Start Date Expiration Date V isits Requested Visits Authorized [id number] Authorized 12/12/2022 06/10/2023 1 1 Reason Comments Employment Physical Med Management Stopped her co ntrol and now her hormones are all over the place Reason Comments Follow-up 3 month+12 weeks pre gnant Specialty Diagnoses / Procedures Referred By Iwona conway Referred To Contact Primary Care Procedures Follow Up In Primary Care [facility] Kay Jones DO [address] [facility] [place] [address] Referral ID Status Reason Start Date Expiration Date V isits Requested Visits Authorized [id number] Authorized 02/23/2023 08/22/2023 1 1 Ordered Prescriptions [...] Care Teams (unrecognized sec tion and content) Car Changer Relationship Specialty Start Date End Date Kay Jones DO [address] [phone] PCP - General Internal Medicine 10/25/22 FOR [...] BE BASED ON THE PRIMARY CLINICAL RECORDS. [facility] [employer] [facility]. provides no warranty or guarantee of the accuracy or completeness of information in this document.
--- NOTE | 2023-07-20 17:02 | EDS_ITS ---
HPI History of Present Illness Chief Complaint: Cellulitis Detail of Chief Complaint: Right knee pain and right anterior thigh pain Informant: patient Onset/Context/Timing Onset: Weeks (Knee pain started 3 weeks ago. Presently she has no knee pain.) Context: Sudden Onset Timing: Intermittent (Knee pain for 3 weeks. Now complains of pain spreading to the anterior distal thigh) Quality: Pain Location: Anterior distal thigh Current Severity: Mild Maximum Severity: Moderate Worsened by: Going up steps or extension against resistance Relieved by: Improves with rest Associated Symptoms Associated Symptoms: None Narrative Narrative: Patient is a 32-year-old woman who presents with 3-week history of atraumatic right knee pain. She complains of swelling. She denies paresthesia, anesthesia or motor weakness. She denies fever, chills or night sweats. There is no history of crystal induced arthritis. She is concerned that she may have a clot because the pain is now in her anterior thigh when she goes up and down steps. She presently has no knee pain. She denies discoloration of her leg. She denies asymmetry of her leg. Prior similar symptoms: No Recent Illness/Hospitalization: No PFSH PFSH Medical History Alcohol use Anxiety Back pain Depression Dysmenorrhea Fatty liver Gastric reflux History of edema History of IBS History of pain when walking Hx of fracture of finger Hypertension Leg cramps Menorrhagia with regular cycle Migraines PCOS (polycystic ovarian syndrome) Rectal pain Smoker Home Medications omeprazole 20 mg capsule,delayed release 40 mg PO QHS 05/25/20 [History Last Taken Unknown] polyethylene glycol 3350 17 gram oral powder packet (Miralax) 17 g PO PRN PRN Constipation 05/06/21 [History Last Taken Unknown] metoprolol succinate 50 mg tablet,extended release 24 hr 50 mg PO DAILY 04/21/22 [History Last Taken Unknown] fluoxetine 20 mg capsule 20 mg PO DAILY 10/25/22 [History Last Taken Unknown] aspirin 81 mg tablet,delayed release (Adult Aspirin Regimen) 81 mg PO DAILY #30 tabs 05/10/23 [Rx Last Taken Unknown] docusate sodium 100 mg capsule (Colace) 100 mg PO DAILY 05/10/23 [History Last Taken Unknown] ondansetron 4 mg disintegrating tablet 4 mg PO Q6H PRN nausea and vomiting #60 tabs 05/14/23 [Rx Last Taken Unknown] sertraline 50 mg tablet (Zoloft) 50 mg PO DAILY #30 tabs 05/14/23 [Rx Last Taken Unknown] Allergy/AdvReac Type Severity Reaction Status Date / Time minocycline Allergy other Verified 07/20/23 16:34 acetaminophen [From Vicodin] AdvReac Nausea/Vom/ Verified 07/20/23 16:34 Diarrhea hydrocodone [From Vicodin] AdvReac Nausea/Vom/ Verified 07/20/23 16:34 Diarrhea metoclopramide [From Reglan] AdvReac Other Verified 07/20/23 16:34 promethazine [From Phenergan] AdvReac Other Verified 07/20/23 16:34 Family History Mother Hypertension Grandfather Prostate cancer Other Ovarian cancer Surgical History History of lumbar discectomy History of open reduction and internal fixation (ORIF) procedure s/p polyp removal Social History adopted: No household members: spouse and children number of children: 2 current occupational status: employed current occupation: [employer] current occupational exposures/hazards: No pets and animals: Yes pets and animals: dog(s) history of recent travel: No sexually active: Yes Smoking Status: Former smoker alcohol intake: current alcohol intake frequency: holidays/special occasions only substance use type: does not use caffeine: Yes what type of physical activity do you participate in: weight training frequency: 1-2 times per week seatbelt use: always do you feel safe at home: Yes additional social history: - [place] [employer] ED Constitutional Constitutional ED: Denies chills, fever(s), subjective, sweats or weight loss Gastrointestinal Gastrointestinal: Denies abdominal pain, nausea or vomiting Musculoskeletal Musculoskeletal: Reports other Details: Right knee pain initially now anterior distal right thigh pain. Integumentary Denies rash Neurologic Neurologic: Denies paresthesias or weakness Hematologic/Lymphatic Hematologic/Lymphatic: Reports systems reviewed and no addt'l complaints, except as documented EXAM Physical Exam Const Vital Signs: 07/20/23 16:34 Temperature 97.5 F L Temperature Source Temporal Pulse Rate 94 Respiratory Rate 18 Blood Pressure 151/103 H Blood Pressure Mean 119 Pulse Ox 100 Oxygen Delivery Method Room Air Positive well nourished, well developed and obese General Appearance ED: well developed, NAD and pallor; Negative for cyanotic or diaphoretic Nutritional Appearance: obese HEENT HEENT Narrative: Head is atraumatic and normocephalic. Ears are normal. Nares are patent. Eyes PERRL and EOMs intact bilaterally General Eye ED: Negative for pale conjunctiva or scleral icterus Neck supple and no JVD Resp normal respiratory effort Cardio regular rate and regular rhythm Extremity normal to inspection Extremity Narrative: There might be slight swelling of the right knee compared to left. There is no asymmetry of the thigh or leg. There is no leg vein distention, palpable cords tenderness on the distribution deep venous system. There is no discoloration of the leg. The patella is not ballotable. There is no effusion. There is slight joint line tenderness medially. Keyl's test was challenging but negative. Modified Aleyda's test was negative. Having patient extend her leg against resistance causes her pain over her quadricep muscles. She has no tenderness over the quadricep tendon or the patella tendon. There is no pain palpation in the popliteal fossa. There is no fullness or mass appreciated. DP pulses 2+ and symmetric. Neuro oriented x3 and CN's II-XII intact bilaterally Sensorium / Orientation: alert Psych mental status grossly normal Skin no rashes or lesions noted, no wounds and skin turgor normal General Skin Exam: elasticity normal and pallor; Negative for jaundice MDM MDM MDM Narrative Medical decision making narrative: Suspect muscular injury. In light of patient's BMI there is concern for possible degenerative meniscus injury. Will obtain x-ray to determine any degenerative changes or bony abnormalities. Of note patient is on aspirin. She states she is taking aspirin for preeclampsia prophylaxis. Her assistant wrestling coach is Dr. Delon Perez. Radiography Chest X-Ray - ED: Read by ED Physician (4 view x-ray of the right knee was independent reviewed interpreted by me at 1721 as negative. There is no effusion. There is no foreign body or loose body noted in the joint. The patella is unremarkable. There is no evidence of fracture nor subluxation or asymmetry.) Discharge Plan Triage Chief Complaint: Cellulitis ED Provider: Kaushik Chavarria Dx/Rx/DC Orders Clinical Impression: Acute pain of right knee, Obesity affecting , Acute pain of right thigh, Second trimester Instructions: ED Knee Pain of Uncertain Cause Prescriptions: No Action omeprazole 20 mg capsule,delayed release(DR/EC) 40 mg PO QHS metoprolol succinate 50 mg tablet extended release 24 hr 50 mg PO DAILY fluoxetine 20 mg capsule 20 mg PO DAILY docusate sodium [Colace] 100 mg capsule 100 mg PO DAILY aspirin [Adult Aspirin Regimen] 81 mg tablet,delayed release (DR/EC) 81 mg PO DAILY Qty: 30 6RF polyethylene glycol 3350 [Miralax] 17 gram Powder In Packet 17 g PO PRN PRN (Reason: Constipation) ondansetron 4 mg tablet,disintegrating 4 mg PO Q6H PRN (Reason: nausea and vomiting) Qty: 60 4RF sertraline [Zoloft] 50 mg tablet 50 mg PO DAILY Qty: 30 0RF Primary Care Provider: Katie Jones Referrals: Katie Jones, DO [Primary Care Provider] - 1 Week if not improving Activity Restrictions/Additional Instructions: 1. Apply ice to your knee and thigh 6-10 times a day for the next 3 to 5 days 2. Recommend Tylenol for your pain since you are . 3. Avoid activity that causes you significant pain. Disposition Disposition: Home, Self Care
--- NOTE | 2023-07-20 17:10 | RAD_ITS ---
STUDY: X-RAY - RIGHT KNEE REASON FOR EXAM: Female, 32 years old. Injury/Pain TECHNIQUE: 4 view(s) of the knee. COMPARISON: None. FINDINGS: Normal visualized distal femur. Normal visualized proximal tibia and fibula. Normal proximal tibiofibular articulation. There is no demonstrated fracture. Normal medial femorotibial compartment. Normal lateral femorotibial compartment. Normal patellofemoral articulation. There is a moderate volume joint effusion. The soft tissue structures are unremarkable. RAD/Knee 4 or More Views IMPRESSION: No acute fracture or dislocation. Probable moderate effusion. Electronically Signed: Armand Evangelista MD at 17:32 EST ,
[2023-07-20 17:33] VITALS: BP 128/78; PULSE 64; RESP 16; TEMP 36.4; O2SAT 99
== END 2023-07-20 17:34 | disposition home or self-care (01) ==
PROVIDERS: Emergency Provider Emergency Medicine; PCP Internal Medicine; Visit Provider Emergency Medicine
DX: O26.892 Other specified pregnancy related conditions, second trimester (principal); M25.561 Pain in right knee; M79.651 Pain in right thigh; O99.212 Obesity complicating pregnancy, second trimester; O16.2 Unspecified maternal hypertension, second trimester; O99.612 Diseases of the digestive system complicating pregnancy, second trimester; K21.9 Gastro-esophageal reflux disease without esophagitis; Z3A.00 Weeks of gestation of pregnancy not specified; Z79.82 Long term (current) use of aspirin; Z79.899 Other long term (current) drug therapy; Z87.891 Personal history of nicotine dependence
CPT/HCPCS: 73564; 99282

== ENCOUNTER → 2023-07-20 | Outpatient (CLI) | payer OTHER, SELFPAY ==
--- NOTE | 2023-07-20 09:58 | US_ITS ---
PROCEDURE: SECOND AND THIRD TRIMESTER OBSTETRICAL ULTRASOUND REASON FOR EXAM: Female, 32 years old. Anatomy scan LMP: 03/04/2023 TECHNIQUE: Transabdominal and Transvaginal PRIOR ULTRASOUND: None. FINDINGS: There is a single intrauterine fetus. The fetus is in a breech presentation. There is demonstrated cardiac activity with a heart rate of 149 bpm. There is a normal amniotic fluid volume. The largest amniotic fluid pocket measures 6.5 cm. The amniotic fluid index (THOMAS) is subjectively within normal limits but not measured. The placenta is posterior in location and is not low lying. There are Grade 0 placental changes. The cervix measures 4.1 cm in length. The adnexal regions are not visualized. BIOMETRY: BPD: 4.8 cm: 20 weeks, 3 days HC: 17.3 cm: 19 weeks, 6 days AC: 15 cm: 20 weeks, 2 days FL: 2.8 cm: 18 weeks, 4 days FL/BPD: 58.58% FL/HC: 16.1% FL/AC: 18.53% HC/AC: 1.15 age by current US: 19 weeks, 5 days. MAYA by current US: 12/09/2023. Estimated weight: 303 grams, +/- 45 grams, 39 %. Age by LMP: 19 weeks, 5 days. MAYA by LMP: 12/09/2023. ANATOMY: Cranium: Normal lateral ventricles. Normal choroid plexus. Normal cerebellum measuring 1.9 cm. Normal cisterna magna measuring 5 mm. Normal face, nose and lips. Chest: Normal 4-chamber heart. Abdomen/Pelvis: Normal diaphragm. Normal stomach. Normal abdominal wall. Normal cord insertion. Normal 3 vessel cord. Normal kidneys. Normal bladder. Spine: Normal cervical spine. Normal thoracic spine. Normal lumbar spine. Normal sacrum. Extremities: Normal bilateral upper extremities. Normal bilateral lower extremities. US/OB Anatomy w/ Transvaginal IMPRESSION: Single live intrauterine fetus in breech presentation patient age of 19 weeks and 5 days. The MAYA is 12/20/2023. Electronically Signed: Boom Meek MD at 12:27 EST ,
--- OUTSIDE RECORDS SUMMARY | 2023-07-20 10:05 | XMS RPT_ITS | CCD ---
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 Kay Rascon Primary Care Unava ilable Niraj, Dr. Jc Olivares Attending Unavailable Yelatasha, Dr. Jc Olivares Referring Unavailable Obevelio, Dr. Kay Rascon Primary Care Unava ilable Kay Jones Unavailable Simon An Unavailable Unavailable Dr. Simon An Attending Unava ilable KAY JONES Primary Care Unavailab le OBKAY MICHELLE Referring Unavailab conchita Nuno, MsMichelle Lua Attending U navailable KAY JONES Primary Care Unavailab le OberhausKay bar DO Primary Care Provider [phone] KAY JONES Primary Care Unavailable OBKAY MICHELLE Primary Care Unavailable OberhausKay bar DO Primary Care Provider [phone] KAY JONES Attending Unavailable OBKAY MICHELLE Primary Care Unavailable OBKAY MICHELLE Attending Unavailable KAY JONES Referring Unavailable KAY JONES Primary Care Unavailable OBKAY MICHELLE Attending Unavailable KAY JONES Primary Care Unavailable KAY JONES Attending Unavailable KAY JONES Referring Unavailable KAY JONES Primary Care Unavailable Allergies Allergy Classification Reported Allergen(s) Allergy Type Date of Onset Reaction(s) Facility (6 sources) Acetaminophen / HYDROcodone; Translations: [HYDROCODONE-ACET AMINOPHEN] Drug Allergy 08-04-19 11 Unknown [facility] (7 sources) Metoclopramide; Translations: [METOCLOPRAMIDE] Drug Allergy 05-09-20 11 Hallucinations , Other, Unknown [facility] (7 sources) Minocycline; Translations: [MINOCYCLINE] Drug Allergy 06-29-20 16 Other (See Comments), Unknown [facility] (1 source) OTHER (REVIEW COMMENTS!); Translations: [OTHER (REVIEW COMMENTS!)] Propensity to adverse reactions to drug (disorder) 12-04-19 19 [facility] (6 sources) Promethazine; Translations: [PROMETHAZINE] Drug Allergy 01-29-20 22 Hallucinations , Unknown [facility] Phone: (1 source) Acetaminophen / HYDROcodone Drug Allergy Other [facility] Medications Current Medications Medication Drug Class(es) Dates Sig (Normalized) Sig (Original) acetaminophen 300 mg / codeine phosphate 30 mg oral tablet (1 source) Opioid Agonist Start: 01-28-2022 End: 01-31-2022 take 1 tablet by mouth every four to six hours as needed for pain acetaminophen-codein e (TYLENOL #3) 300-30 MG per tablet Indications: Sprain of calcaneofibular ligament of right ankle, initial encounter Take 1 tablet by mouth every 4-6 hours as needed for Pain for up to 3 days. 10 tablet 0 01/28/2022 01/31/2022 Active amoxicillin 875 mg / clavulanate 125 mg oral tablet (1 source) Penicillin-class Antibacterial Start: 02-23-2023 End: 03-05-2023 take 1 tablet by mouth twice daily amoxicillin-pot clavulanate (Augmentin) 875-125 mg tablet Indications: Acute non-recurrent frontal sinusitis Take 1 tablet (875 mg) by mouth 2 times a day for 10 days. 20 tablet 0 02/23/2023 03/05/2023 Active cholecalciferol 1.25 mg oral tablet (4 sources) Vitamin D Start: 05-31-2023 take 1 tablet by mouth every week cholecalciferol (Vitamin D3) 1,250 mcg (50,000 unit) tablet Indications: Vitamin D deficiency Take 1 tablet (50,000 Units) by mouth 1 (one) time per week. 12 tablet 3 05/31/2023 Active Completed/Discontinued Medications Medication Drug Class(es) Dates Sig (Normalized) Sig (Original) acetaminophen 325 mg / HYDROcodone bitartrate 5 mg oral tablet (1 source) Opioid Agonist Start: 01-28-2022 End: 01-28-2022 HYDROcodone-acet aminophen (NORCO) 5-325 MG per tablet 1 tablet Ethinyl Estradiol / Levonorgestrel (2 sources) Progestin, Estrogen, Progestin-containin g Intrauterine Device Start: 12-11-2022 End: 04-02-2023 Vienva 0.1-20 mg-mcg tablet Problems Active Problems Problem Classification Problem Date Documented Da te Episodic/Chronic Anxiety disorders (2 sources) Anxiety disorder, unspecified; Translations: [Anxiety disorder, unspecified] Onset: 3 Chronic E Codes: Cut/pierceb (1 source) Contact with knife, initial encounter; Translations: [Contact with knife, initial encounter] Onset: 3 Episodic Esophageal disorders (3 sources) Gastroesophageal reflux disease; Translations: [Gastro-esophageal reflux disease without esophagitis] Onset: 3 05-31-2023 Chronic Essential hypertension (3 sources) Essential (primary) hypertension; Translations: [Essential (primary) hypertension] Onset: 3 Chronic Immunizations and screening for infectious disease (1 source) Encounter for immunization; Translations: [Encounter for immunization] Onset: 3 Episodic Menstrual disorders (4 sources) Excessive and frequent menstruation with regular cycle; Translations: [Excessive and frequent menstruation with regular cycle] Onset: 3 Chronic Mood disorders (4 sources) Recurrent major depression in partial remission; Translations: [Major depressive disorder, recurrent, in partial remission] Onset: 3 05-31-2023 Chronic Mood disorders (2 sources) Mood disorders; Translations: [Depression, unspecified] Onset: 3 Nutritional deficiencies (7 sources) Vitamin D deficiency; Translations: [Vitamin D deficiency, unspecified] Onset: 3 02-23-2023 Chronic Open wounds of extremities (3 sources) Open wound of finger; Translations: [Open wound of finger(s), without mention of complication] Onset: 3 01-27-2023 Episodic Other aftercare (1 source) Other care home (current) drug therapy; Translations: [Other terminal operator (current) drug therapy] Onset: 3 Episodic Other endocrine disorders (4 sources) Polycystic ovarian syndrome; Translations: [Polycystic ovarian syndrome] Onset: 3 Chronic Other endocrine disorders (3 sources) Polycystic ovary syndrome; Translations: [Polycystic ovarian syndrome] Onset: 3 04-02-2023 Chronic Other gastrointestinal disorders (2 sources) Abdominal wind pain; Translations: [Gas pain] Onset: 3 05-31-2023 Episodic Other gastrointestinal disorders (1 source) Gas pain; Translations: [Gas pain] Onset: 3 Episodic Residual codes; unclassified (2 sources) Obstructive sleep apnea (adult) (pediatric); Translations: [Obstructive sleep apnea (adult) (pediatric)] Onset: 3 Chronic Residual codes; unclassified (5 sources) Obstructive sleep apnea syndrome; Translations: [Obstructive sleep apnea (adult) (pediatric)] Onset: 3 02-23-2023 Chronic Sprains and strains (1 source) Sprain of calcaneofibular ligament; Translations: [Sprain of calcaneofibular ligament of right ankle, initial encounter] Episodic Unclassified (2 sources) LACERATION ON LEFT INDEX FINGER 01-27-2023 Past or Other Problems Problem Classification Problem Date Documented Da te Episodic/Chronic Administrative/social admission (9 sources) Patient encounter status; Translations: [Encounter for pre-employment examination] Onset: 02-23-2023 02-23-2023 Episodic Malaise and fatigue (4 sources) Other fatigue; Translations: [Other fatigue] Onset: 12-12-2022 Episodic Other lower respiratory disease (4 sources) Apnea, not elsewhere classified; Translations: [Apnea, not elsewhere classified] Onset: 12-12-2022 Episodic Other screening for suspected conditions (not mental disorders or infectious disease) (4 sources) Encounter for screening for lipoid disorders; Translations: [Encounter for screening for lipoid disorders] Onset: 12-12-2022 Episodic Other upper respiratory infections (6 sources) Acute frontal sinusitis; Translations: [Acute frontal sinusitis, unspecified] Onset: 02-23-2023 02-23-2023 Episodic Unclassified (3 sources) Onset: 12-12-2022 12-12-2022 Results Test Name Value Interpretation Reference Range Facil ity Vital Signs Date Time Vital Sign Value Performing Clinician Facility 05-31-2023 10:16-0500 Body height 165.1 cm Kay Oberhauser DO Work Phone: [facility] 05-31-2023 10:16-0500 Body mass index (BMI) [Ratio] 37.28 kg/m2 Kay Oberhauser DO Work Phone: [facility] 05-31-2023 10:16-0500 Body weight 101.61 kg Kay Oberhauser DO Work Phone: [facility] 05-31-2023 10:16-0500 Diastolic blood pressure 77 mm[Hg] Kay Oberhauser DO Work Phone: [facility] 05-31-2023 10:16-0500 Heart rate 100 /min Kay Oberhauser DO Work Phone: [facility] 05-31-2023 10:16-0500 Systolic blood pressure 133 mm[Hg] Kay Oberhauser DO Work Phone: [facility] 04-02-2023 12:57-0400 Body height 165.1 cm Kay Oberhauser DO Work Phone: [facility] 04-02-2023 12:57-0400 Body mass index (BMI) [Ratio] 36.78 kg/m2 Kay Oberhauser DO Work Phone: [facility] 04-02-2023 12:57-0400 Body weight 100.25 kg Kay Oberhauser DO Work Phone: [facility] 04-02-2023 12:57-0400 Diastolic blood pressure 80 mm[Hg] Kay Oberhauser DO Work Phone: [facility] 04-02-2023 12:57-0400 Heart rate 84 /min Kay Oberhauser DO Work Phone: [facility] 04-02-2023 12:57-0400 Systolic blood pressure 127 mm[Hg] Kay Oberhauser DO Work Phone: [facility] 02-23-2023 09:15-0400 Body height 165.1 cm Kay Oberhauser DO Work Phone: [facility] 02-23-2023 09:15-0400 Body mass index (BMI) [Ratio] 35.45 kg/m2 Kay Oberhauser DO Work Phone: [facility] 02-23-2023 09:15-0400 Body weight 96.62 kg Kay Oberhauser DO Work Phone: [facility] 02-23-2023 09:15-0400 Diastolic blood pressure 85 mm[Hg] Kay Oberhauser DO Work Phone: [facility] 02-23-2023 09:15-0400 Heart rate 76 /min Kay Oberhauser DO Work Phone: [facility] 02-23-2023 09:15-0400 Systolic blood pressure 140 mm[Hg] Kay Oberhauser DO Work Phone: [facility] 01-27-2023 18:11-0400 Body height 165.1 cm Kay Oberhauser Other Phone: [facility] 01-27-2023 18:11-0400 Body temperature 96.44 [degF] Kay Oberhauser Other Phone: [facility] 01-27-2023 18:11-0400 Body weight 99.5 kg Kay Jones Other Phone: [facility] 01-27-2023 18:11-0400 Diastolic blood pressure 99 mm[Hg] Kay Obchristopheer Other Phone: [facility] 01-27-2023 18:11-0400 Heart rate 76 /min Kay Obchristopheer Other Phone: [facility] 01-27-2023 18:11-0400 Respiratory rate 17 /min Kay Obchristopheer Other Phone: [facility] 01-27-2023 18:11-0400 SaO2% (BldA) [Mass fraction] 97 % Kay Jones Other Phone: [facility] 01-27-2023 18:11-0400 Systolic blood pressure 151 mm[Hg] Kay Obchristopheer Other Phone: [facility] 01-28-2022 03:38-0400 SaO2% (BldA) [Mass fraction] 97 % Justin Deskins DO Work Phone: [facility] [employer] 01-28-2022 03:28-0400 Diastolic blood pressure 97 mm[Hg] Justin Deskins DO Work Phone: [facility] [employer] 01-28-2022 03:28-0400 Systolic blood pressure 149 mm[Hg] Justin Deskins DO Work Phone: [facility] [employer] 01-28-2022 02:02-0400 Body height 165.1 cm Justin Deskins DO Work Phone: [facility] [employer] 01-28-2022 02:02-0400 Body mass index (BMI) [Ratio] 36.61 kg/m2 Justin Deskins DO Work Phone: [facility] [employer] 01-28-2022 02:02-0400 Body temperature 98.1 [degF] Justin Deskins DO Work Phone: [email or web address] 01-28-2022 02:02-0400 Body weight 99.79 kg Justin Bell DO Work Phone: [email or web address] 01-28-2022 02:02-0400 Heart rate 73 /min Justin Bell DO Work Phone: [email or web address] 01-28-2022 02:02-0400 Respiratory rate 18 /min Justin Bell DO Work Phone: [facility] [employer] Encounters Encounter Date Encounter Type Care Provider Facility Start: 05-31-2023 End: 05-31-2023 ambulatory KAY L [facility] Ambulatory Start: 05-31-2023 End: 05-31-2023 Office outpatient visit 15 minutes Kay Jones DO Work Phone: [facility] Procedures Date Procedure Procedure Detail Performing Clinician Start: 05-31-2023 FOLLOW UP IN FAMILY MEDICINE KAY JONES Start: 03-15-2023 VARICELLA ZOSTER ANT IBODY, IGG KAY JONES Start: 02-23-2023 FOLLOW UP IN FAMILY MEDICINE KAY JONES Start: 12-19-2022 CBC W Auto Different ial panel - Blood KAY JONES Start: 12-19-2022 Comprehensive metabo lic 2000 panel - Serum or Plasma KAY JONES Start: 12-19-2022 Cyanocobalamin vitamin b-12 KAY JONES Start: 12-19-2022 Ferritin [Mass/volum e] in Serum or Plasma KAY JONES Start: 12-19-2022 Hemoglobin A1c/Hemoglobin.total in Blood KAY JONES Start: 12-19-2022 INSULIN, RANDOM KAY O BERHAUSER Start: 12-19-2022 IRON AND TIBC KAY OBE RHAUSER Start: 12-19-2022 Lipid panel KAY SALASER SHANICE Start: 12-19-2022 TSH WITH REFLEX TO F REE T4 IF ABNORMAL KAY JONES Start: 12-19-2022 VITAMIN D 25-HYDROXY,TOTAL KAY JONES Start: 12-19-2022 Lipid 1996 panel - S henri or Plasma Kay Jones DO Work Phone: Start: 01-28-2022 Radex ankle complete minimum 3 views Justin Bell DO Work Phone: Start: 02-11-2019 Radex fingr minimum 2 views MILAGROS NEIL Plan of Treatment Date Care Activity Detail Author Start: 12-04-2039 Zoster Vaccines (1 of 2) Zoster Vaccines (1 of 2) [facility] Start: 01-27-2033 DTaP/Tdap/Td Vaccines (9 - Td or Tdap) DTaP/Tdap/Td Vaccines (9 - Td or Tdap) [facility] Start: 12-20-2027 Lipid panel Lipid Panel [facility] Start: 11-02-2024 DTaP/Tdap/Td vaccine (8 - Td or Tdap) DTaP/Tdap/Td vaccine (8 - Td or Tdap) [facility] Start: 12-20-2023 Diabetes mellitus screening Diabetes Screening [facility] Start: 05-31-2023 End: 05-31-2023 Patient encounter procedure 05/31/2023 10:20 AM EST Office Visit [facility] [address] [place] [id number] Kay Jones DO [address] [facility] [place] [address] [facility] Start: 03-02-2023 Influenza vaccination Influenza Vaccine (#1) [facility] Start: 02-23-2023 End: 02-24-2024 Drugs of abuse screen W Reflex confirm panel - Urine Drug Screen, Urine With Reflex to Confirmation Lab Routine Pre-employment drug screening Expected: 02/23/2023 (Approximate), Expires: 02/24/2024 [facility] Service Area Work Phone: Immunizations Immunization Date Immunization Notes Care Provider Fa cility 01-27-2023 tetanus toxoid, reduced diphtheria toxoid, and acellular pertussis vaccine, adsorbed Kay Jones Other Phone: [facility] 05-26-2015 influenza virus vaccine, unspecified formulation Kay Barbitomásyosvany DO Work Phone: [facility] Work Phone: Payers Date Payer Category Payer [employer] ( [employer] others) [id number] 2022 [employer] others[employer] [id number] 2022-Present [address] [place] [address] [id number] 2021 [employer] ( and others) [facility] [id number] 2021-Present [phone] [address] [place] [address] [id number] 2018 Unknown [id number] 1989 Unknown [id number] 1989 Unknown [id number] 1989 Unknown [id number] 1989 Unknown [id number] 1989 Unknown [id number] 1989 Unknown [id number] 1989 Unknown [id number] .[id number] 1989 Unknown [id number] .[id number] 1989 Unknown [id number] .[id number] 1989 Unknown [id number] .[id number] 1989 Unknown [id number] Unknown INDUST[employer]AL\INDUSTRIAL Unknown [phone] Social History Date Type Detail Facility Start: 01-28-2022 Tobacco smoking status NMIS Smokes tobacco daily [employer] Phone: End: 08-14-2022 History of tobacco use Cigarette Smoker [employer] Phone: Start: 01-28-2022 End: 12-12-2022 Tobacco use and exposure Smokeless tobacco non-user [employer] Phone: Start: 01-28-2022 End: 05-31-2023 Alcohol intake Current drinker of alcohol (finding) [employer] Phone: Start: 1990 Sex Assigned At Not on file [employer] Phone: Start: 01-18-2022 End: 05-31-2023 Exposure to SARS-CoV-2 (event) Not sure [employer] Phone: Tobacco smoking consumption unknown [facility] Start: 12-12-2022 Tobacco smoking status NHIS Ex-smoker [facility] Work Phone: End: 08-14-2022 History of tobacco use Current smoker [facility] Work Phone: Start: 12-12-2022 End: 04-02-2023 History of Social function [facility] Work Phone: Start: 12-12-2022 End: 10-02-2023 Tobacco use panel [facility] Work Phone: Start: 1990 Sex Assigned At Female [facility] Start: 12-13-2022 Gender identity Identifies as female gender (finding) [facility] Work Phone: Start: 12-13-2022 Sexual orientation Heterosexual (finding) [facility] Work Phone: History of Present illness Narrative 05-31-2023 Kay L Karen, DO - 05/31/2023 10:20 AM EST Note Date & Type Note Facility 05-31-2023 History of Present illness Narrative Subjective Patient ID: Nathalia Krause is a 32 y.o. female who presents for Follow-up (3 month/+12 weeks ). HPI Patient is here today for 3 mo follow up. Patient is currently 3 months with a boy, other children are girls. Review of Systems Constitutional: Negative for activity change, appetite change, chills and fatigue. HENT: Negative for congestion, postnasal drip, sinus pressure, sinus pain and sore throat. Respiratory: Negative for cough, shortness of breath and wheezing. Cardiovascular: Negative for chest pain and leg swelling. Gastrointestinal: Negative for abdominal distention, diarrhea, nausea and vomiting. Musculoskeletal: Negative for back pain. Neurological: Negative for weakness and numbness. Objective BP 133/77 Pulse 100 Ht 1.651 m (5' 5 ) Wt 102 kg (224 lb) BMI 37.28 kg/m Physical Exam Constitutional: General: She is not in acute distress. Appearance: Normal appearance. HENT: Head: Normocephalic. Nose: Nose normal. Mouth/Throat: Mouth: Mucous membranes are dry. Pharynx: No oropharyngeal exudate. Eyes: General: Right eye: No discharge. Left eye: No discharge. Extraocular Movements: Extraocular movements intact. Pupils: Pupils are equal, round, and reactive to light. Cardiovascular: Rate and Rhythm: Normal rate and regular rhythm. Heart sounds: No murmur heard. No gallop. Pulmonary: Effort: Pulmonary effort is normal. No respiratory distress. Breath sounds: Normal breath sounds. No wheezing. Musculoskeletal: General: No swelling. Normal range of motion. Skin: General: Skin is warm and dry. Coloration: Skin is not jaundiced. Neurological: General: No focal deficit present. Mental Status: She is alert and oriented to person, place, and time. Cranial Nerves: No cranial nerve deficit. Psychiatric: Mood and Affect: Mood normal. Behavior: Behavior normal. Assessment/Plan Problem List Items Addressed This Visit Vitamin D deficiency Relevant Medications cholecalciferol (Vitamin D3) 1,250 mcg (50,000 unit) tablet Mild obstructive sleep apnea Depression - Primary Relevant Medications sertraline (Zoloft) 50 mg tablet Other Visit Diagnoses Gas pain Relevant Medications simethicone (Mylicon) 125 mg chewable tablet Depression - switched to sertraline now that she is , is doing ok 2. 12 weeks - seeing Dr Jeter in [place] 3. Follow up as needed Final diagnoses: [E55.9] Vitamin D deficiency [F33.41] Recurrent major depressive disorder, in partial remission (CMS/HCC) [R14.1] Gas pain [G47.33] Mild obstructive sleep apnea documented in this encounter [facility] Work Phone: History of Present illness Narrative 04-02-2023 Kay Jones DO - 04/02/2023 1:00 PM EDT Note Date & Type Note Facility 04-02-2023 History of Present illness Narrative Subjective Patient ID: Shannen Kent is a 32 y.o. female who presents for Employment Physical and Med Management (Stopped her control and now her hormones are all over the place ). HPI Patient is here today for employment [employer]. 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 Review of Systems Constitutional: Negative for activity change, appetite change, chills and fatigue. HENT: Negative for congestion, postnasal drip, sinus pressure, sinus pain and sore throat. Respiratory: Negative for cough, shortness of breath and wheezing. Cardiovascular: Negative for chest pain and leg swelling. Gastrointestinal: Negative for abdominal distention, diarrhea, nausea and vomiting. Musculoskeletal: Negative for back pain. Neurological: Negative for weakness and numbness. Objective BP 127/80 (BP Location: Left arm, Patient Position: Sitting, BP Cuff Size: Adult) Pulse 84 Ht 1.651 m (5' 5 ) Wt 100 kg (221 lb) BMI 36.78 kg/m Physical Exam Constitutional: General: She is not in acute distress. Appearance: Normal appearance. HENT: Head: Normocephalic. Right Ear: Tympanic membrane, ear canal and external ear normal. Left Ear: Tympanic membrane, ear canal and external ear normal. Nose: Nose normal. Mouth/Throat: Mouth: Mucous membranes are moist. Pharynx: Oropharynx is clear. No oropharyngeal exudate. Eyes: General: Right eye: No discharge. Left eye: No discharge. Extraocular Movements: Extraocular movements intact. Pupils: Pupils are equal, round, and reactive to light. Cardiovascular: Rate and Rhythm: Normal rate and regular rhythm. Heart sounds: No murmur heard. No gallop. Pulmonary: Effort: Pulmonary effort is normal. No respiratory distress. Breath sounds: Normal breath sounds. No wheezing. Abdominal: General: Bowel sounds are normal. There is no distension. Palpations: Abdomen is soft. Tenderness: There is no abdominal tenderness. Musculoskeletal: General: No swelling. Normal range of motion. Skin: General: Skin is warm and dry. Coloration: Skin is not jaundiced. Neurological: General: No focal deficit present. Mental Status: She is alert and oriented to person, place, and time. Cranial Nerves: No cranial nerve deficit. Psychiatric: Mood and Affect: Mood normal. Behavior: Behavior normal. Assessment/Plan Problem List Items Addressed This Visit Encounter for physical examination related to employment - Primary PCOS (polycystic ovarian syndrome) Filed out work physical form Discussed that if her periods continue to be abnormal, would give in another cycle or two but then would discuss with her commercial title examiner, Final diagnoses: [Z02.89] Encounter for physical examination related to employment [E28.2] PCOS (polycystic ovarian syndrome) documented in this encounter [facility] Work Phone: History of Present illness Narrative 02-23-2023 Kay Jones, DO - 02/23/2023 9:20 AM EDT Note Date & Type Note Facility 02-23-2023 History of Present illness Narrative Subjective Patient ID: Shannen Kent is a 32 y.o. female who presents for Follow-up (4 month), URI (Exposed to mold/Cough, congestion, swollen tonsils /Symptoms started 2-3 weeks ago), and Employment Physical (School physical form ). URI Associated symptoms include coughing, ear pain, rhinorrhea and a sore throat. Pertinent negatives include no chest pain, headaches, rash or wheezing. Cough This is a new problem. The current episode started 1 to 4 weeks ago. The problem has been waxing and waning. The problem occurs every few hours. Associated symptoms include ear pain, nasal congestion, postnasal drip, rhinorrhea and a sore throat. Pertinent negatives include no chest pain, chills, ear congestion, fever, headaches, heartburn, hemoptysis, myalgias, rash, shortness of breath, sweats, weight loss or wheezing. Nothing aggravates the symptoms. Patient is here for school physical. 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 Patient also has amry having some sinus and throat issues for the last few weeks. No sick contacts. She has mold in her window AC. Review of Systems Constitutional: Negative for chills, fever and weight loss. HENT: Positive for ear pain, postnasal drip, rhinorrhea and sore throat. Respiratory: Positive for cough. Negative for hemoptysis, shortness of breath and wheezing. Cardiovascular: Negative for chest pain. Gastrointestinal: Negative for heartburn. Musculoskeletal: Negative for myalgias. Skin: Negative for rash. Neurological: Negative for headaches. Objective BP 140/85 (BP Location: Right arm, Patient Position: Sitting, BP Cuff Size: Adult) Pulse 76 Ht 1.651 m (5' 5 ) Wt 96.6 kg (213 lb) BMI 35.45 kg/m Physical Exam Constitutional: General: She is not in acute distress. Appearance: Normal appearance. HENT: Head: Normocephalic. Right Ear: Tympanic membrane, ear canal and external ear normal. Left Ear: Tympanic membrane, ear canal and external ear normal. Nose: Congestion and rhinorrhea present. Mouth/Throat: Pharynx: Posterior oropharyngeal erythema present. No oropharyngeal exudate. Eyes: General: Right eye: No discharge. Left eye: No discharge. Extraocular Movements: Extraocular movements intact. Pupils: Pupils are equal, round, and reactive to light. Cardiovascular: Rate and Rhythm: Normal rate and regular rhythm. Heart sounds: No murmur heard. No gallop. Pulmonary: Effort: Pulmonary effort is normal. No respiratory distress. Breath sounds: Normal breath sounds. No wheezing. Musculoskeletal: General: No swelling. Normal range of motion. Skin: General: Skin is warm and dry. Coloration: Skin is not jaundiced. Neurological: General: No focal deficit present. Mental Status: She is alert and oriented to person, place, and time. Cranial Nerves: No cranial nerve deficit. Psychiatric: Mood and Affect: Mood normal. Behavior: Behavior normal. Assessment/Plan Problem List Items Addressed This Visit Pre-employment drug screening - Primary Relevant Orders Drug Screen, Urine With Reflex to Confirmation Acute non-recurrent frontal sinusitis Relevant Medications amoxicillin-pot clavulanate (Augmentin) 875-125 mg tablet Vitamin D deficiency Relevant Medications cholecalciferol (Vitamin D3) 1,250 mcg (50,000 unit) tablet Mild obstructive sleep apnea Mild pedro - will try trial of cpap to see if helps with fatigue 2. PCOS -labs ok 3. Fatigue - does have vit d def, sent once weekly high dose vit d - b12 on very low end of normal, recommend otc b12 daily 4. Sinusitis - sent antibiotic -recommend otc flonase x 2 weeks 5. Pt needs pre-employment drug screen, will order but advised her to ask what her cost will be as I suspect it will be more than the place her school suggested for a $65 drug test 6. Follow up in 3 mo for fatigue and if cpap is helping Final diagnoses: [Z02.1] Pre-employment drug screening [J01.10] Acute non-recurrent frontal sinusitis [E55.9] Vitamin D deficiency [G47.33] Mild obstructive sleep apnea documented in this encounter [facility] Work Phone: Evaluation note Note Date & Type Note Facility documented in this encounter [facility] Work Phone: Evaluation note Note Date & Type Note Facility documented in this encounter [facility] Work Phone: Evaluation note Note Date & Type Note Facility documented in this encounter [facility] Work Phone: Evaluation note Note Date & Type Note Facility documented in this encounter [facility] Work Phone: Hospital Discharge instructions Attachments Note Date & Type Note Facility Hospital Discharge instructions The following attachments cannot be sent through Care Everywhere.Ankle Sprain (Uruguayan)documented [facility] Work Phone: Reason for referral (narrative) Consultation (Routine) - Authorized Note Date & Type Note Facility Referral ID Status Reason Start Date Expiration Date V isits Requested Visits Authorized [id number] Authorized 02/23/2023 08/22/2023 1 1 [facility] Work Phone: Summary Purpose Family History No Family History Records FoundNo Family History Records FoundNo Family History Records FoundNo Family History Records FoundNo Family History Records FoundNo Family History Records FoundNo Family History Records Found Advance Directives No Advanced Directives Records FoundNo Advanced Directives Records FoundNo Advanced Directives Records FoundNo Advanced Directives Records FoundNo Advanced Directives Records FoundNo Advanced Directives Records FoundNo Advanced Directives Records Found Reason for Referral * Wound checkWound check Additional Source Comments INFORMATION SOURCE (unrecogn ized section and content) DATE CREATED AUTHOR AUTHOR'S ORGANIZ ATION 01/25/2020 [facility] ([place]) DATE CREATED AUTHOR AUTHOR'S ORGANIZ ATION 07/29/2021 [facility] DATE CREATED AUTHOR AUTHOR'S ORGANIZ ATION 12/25/2022 [facility] DATE CREATED AUTHOR AUTHOR'S ORGANIZ ATION 02/10/2023 [facility] DATE CREATED AUTHOR AUTHOR'S ORGANIZ ATION 03/19/2023 [facility] DATE CREATED AUTHOR AUTHOR'S ORGANIZ ATION 06/03/2023 [facility] Reason for Visit (unrecogniz ed section and content) Reason Comments Follow-up 4 month URI Exposed to moldCough , congestion, swollen tonsils Symptoms started 2-3 weeks ago Employment 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 physical form Specialty Diagnoses / Procedures Referred By Iwona conway Referred To Contact Primary Care Procedures Follow Up In Primary Care Kay Jones DO [address] [address] Referral ID Status Reason Start Date Expiration Date V isits Requested Visits Authorized [id number] Authorized 12/12/2022 06/10/2023 1 1 Reason Comments Employment Physical Med Management Stopped her co ntrol and now her hormones are all over the place Reason Comments Follow-up 3 month+12 weeks pre gnant Specialty Diagnoses / Procedures Referred By Iwona conway Referred To Contact Primary Care Procedures Follow Up In Primary Care [facility] Kay Jones DO [address] [address] Referral ID Status Reason Start Date Expiration Date V isits Requested Visits Authorized [id number] Authorized 02/23/2023 08/22/2023 1 1 Ordered Prescriptions (unrec ognized section and content) Scheduled Active and Recently Administ ered Medications (unrecognized section and content) <item> Privacy Markings (unrecogniz ed section and content) Section Author: Roxi Holman PROHIBITION ON REDISCLOSURE OF CONFIDENTIAL INFORMATION This notice accompanies a disclosure of information concerning a client made to you with the consent of such client. 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 This clinical summary was aggregated from multiple sources. Caution should be exercised in using it in the provision of clinical care. This summary normalizes information from multiple sources, and as a consequence, information in this document may materially change the coding, format and clinical context of patient data. In addition, data may be omitted in some cases. CLINICAL DECISIONS SHOULD BE BASED ON THE PRIMARY CLINICAL RECORDS. [facility] [employer]. provides no warranty or guarantee of the accuracy or completeness of information in this document.
--- NOTE | 2023-07-20 10:06 | EKG12_ITS ---
Test Reason : HTN Blood Pressure : / mmHG Vent. Rate : 082 BPM Atrial Rate : 082 BPM P-R Int : 144 ms QRS Dur : 080 ms QT Int : 390 ms P-R-T Axes : 020 038 022 degrees QTc Int : 455 ms Normal sinus rhythm with sinus arrhythmia Normal ECG Confirmed by CYNDI TAPIA, TAMARA ([id number]), news copy editor MARYA DIAZ ([id number]) on 07/23/2023 10:20:24 AM Referred By: Latasha Joshua Confirmed By:TAMARA HANNA MD
== END | disposition home or self-care (01) ==
LOC: OPUS 09:54
PROVIDERS: PCP Internal Medicine; Referring Provider Obstetrics & Gynecology; Visit Provider Obstetrics & Gynecology
DX: O16.9 Unspecified maternal hypertension, unspecified trimester (principal); Z3A.00 Weeks of gestation of pregnancy not specified
CPT/HCPCS: 76805; 76817; 93005

== ENCOUNTER → 2023-08-09 | Outpatient (CLI) | payer OTHER, SELFPAY ==
[2023-08-09 17:35] LABS: Protein, Urine (Random) 18.1 mg/dL (<11.9); Protein:Creat Ratio 121 mg/g CRE (0-200)
== END | disposition home or self-care (01) ==
LOC: LABSPEC 16:23
PROVIDERS: PCP Internal Medicine; Referring Provider Advanced Practice Midwife; Visit Provider Advanced Practice Midwife
DX: I10 Essential (primary) hypertension (principal)
CPT/HCPCS: 82570; 84156

== ENCOUNTER → 2023-08-24 | Outpatient (CLI) | payer OTHER, SELFPAY ==
--- OUTSIDE RECORDS SUMMARY | 2023-08-24 07:54 | XMS RPT_ITS | CCD ---
Author Name Unknown Address [address] [place] [address] Organization [facility] Care Team Providers Care Commercial Appraiser Name Role Phone MILAGROS NEILMichelle Referring Unavailable PROVIDER, UNKNOWN Attending Unavailable PROVIDER, UNKNOWN Admitting Unavailable Provider, None Primary Care Provider Unavailabl e MD CRIS, MPH FLORENTIN LEOS Attendin g Unavailable MD CRIS, MPH FLORENTIN LEOS Referrin g Unavailable Karen, Dr. Kay Rascon Primary Care Unava ilable Niraj, Dr. Jc Olivares Attending Unavailable Yelatasha, Dr. Jc Olivares Referring Unavailable Oberhausyosvany, Dr. Kay Rascon Primary Care Unava ilable Kay Jones Unavailable Simon An Unavailable Unavailable Dr. Simon An Attending Unava ilable OBKAY MICHELLE Primary Care Unavailab le OBERKAY PRASAD Referring Unavailab conchita Nuno, Ms. Aida Lua Attending U navailable OBKAY MICHELLE Primary Care Unavailab le Oberhauser Kay LEONARD Primary Care Provider [phone] KAY JONES Primary Care Unavailable OBERHAUSERKAY Primary Care Unavailable Oberhauser Kay LEONARD Primary Care Provider [phone] OBKAY MICHELLE Attending Unavailable OBERHAUSERJANELN L Primary Care Unavailable OBERHAUSERKAY L Attending Unavailable OBERHAUSKAY CALDERON L Referring Unavailable OBERHAUSKAY CALDERON Primary Care Unavailable OBERHAUSKAY CALDERON Attending Unavailable OBERHAUSERKAY Primary Care Unavailable OBERHAUSER, KAY L Attending Unavailable KAY JONES Referring Unavailable KAY JONES Primary Care Unavailable REX ANDUJAR Referring Unavailab ROBERT Dao Attending Unavailable KAY JONES Primary Care Unavailable REX ANDUJAR Referring Unavailab PRINCE Gann Attending Unavailable KAY JONES Primary Care Unavailable Allergies Allergy Classification Reported Allergen(s) Allergy Type Date of Onset Reaction(s) Facility (7 sources) Acetaminophen / HYDROcodone; Translations: [HYDROCODONE-ACET AMINOPHEN] Drug Allergy 08-04-19 11 Unknown [facility] Rep[facility] (8 sources) Metoclopramide; Translations: [METOCLOPRAMIDE] Drug Allergy 05-09-20 11 Hallucinations , Other, Unknown [facility] Repository (8 sources) Minocycline; Translations: [MINOCYCLINE] Drug Allergy 06-29-20 16 Other (See Comments), Unknown [facility] Repository (1 source) OTHER (REVIEW COMMENTS!); Translations: [OTHER (REVIEW COMMENTS!)] Propensity to adverse reactions to drug (disorder) 12-04-19 19 [facility] Rep[facility] (6 sources) Promethazine; Translations: [PROMETHAZINE] Drug Allergy 01-29-20 22 Hallucinations , Unknown [facility] Phone: (1 source) Acetaminophen / HYDROcodone Drug Allergy Other [facility] Medications Current Medications Medication Drug Class(es) [...] 01-27-2023 Episodic Other aftercare (1 source) Other shelter (current) drug therapy; Translations: [Other long term care administrator (current) drug therapy] Onset: 3 Episodic Other [...] 165.1 cm Kay Oberhauser DO Work Phone: [facility] 05-31-2023 10:16-0500 Body mass index (BMI) [Ratio] 37.28 kg/m2 Kay Oberhauser DO Work Phone: [facility] 05-31-2023 10:16-0500 Body weight 101.61 kg Kay Oberhauser DO Work Phone: [facility] 05-31-2023 10:16-0500 Diastolic blood pressure 77 mm[Hg] Kay Oberhauser DO Work Phone: [facility] 05-31-2023 10:16-0500 Heart rate 100 /min Kay Oberhauser DO Work Phone: [facility] 05-31-2023 10:16-0500 Systolic blood pressure 133 mm[Hg] Kay Oberhauser DO Work Phone: [facility] 04-02-2023 12:57-0400 Body height 165.1 cm Kay Oberhauser DO Work Phone: [facility] 04-02-2023 12:57-0400 Body mass index (BMI) [Ratio] 36.78 kg/m2 Kay Oberhauser DO Work Phone: [facility] 04-02-2023 12:57-0400 Body weight 100.25 kg Kay Oberhauser DO Work Phone: [facility] 04-02-2023 12:57-0400 Diastolic blood pressure 80 mm[Hg] Kay Oberhauser DO Work Phone: [facility] 04-02-2023 12:57-0400 Heart rate 84 /min Kay Oberhauser DO Work Phone: [facility] 04-02-2023 12:57-0400 Systolic blood pressure 127 mm[Hg] Kay Oberhauser DO Work Phone: [facility] 02-23-2023 09:15-0400 Body height 165.1 cm Kay Oberhauser DO Work Phone: [facility] 02-23-2023 09:15-0400 Body mass index (BMI) [Ratio] 35.45 kg/m2 Kay Oberhauser DO Work Phone: [facility] 02-23-2023 09:15-0400 Body weight 96.62 kg Kay Oberhauser DO Work Phone: [facility] 02-23-2023 09:15-0400 Diastolic blood pressure 85 mm[Hg] Kay Oberhauser DO Work Phone: [facility] 02-23-2023 09:15-0400 Heart rate 76 /min Kay Oberhauser DO Work Phone: [facility] 02-23-2023 09:15-0400 Systolic blood pressure 140 mm[Hg] Kay Oberhauser DO Work Phone: [facility] 01-27-2023 18:11-0400 Body height 165.1 cm Kay Oberhauser Other Phone: [facility] 01-27-2023 18:11-0400 Body temperature 96.44 [degF] Kay Jones Other Phone: [facility] 01-27-2023 18:11-0400 Body weight 99.5 kg Kay Jones Other Phone: [facility] 01-27-2023 18:11-0400 Diastolic blood pressure 99 mm[Hg] Kay Jones Other Phone: [facility] 01-27-2023 18:11-0400 Heart rate 76 /min Kay Jones Other Phone: [facility] 01-27-2023 18:11-0400 Respiratory rate 17 /min Kay Jones Other Phone: [facility] 01-27-2023 18:11-0400 SaO2% (BldA) [Mass fraction] 97 % Kay Jones Other Phone: [facility] 01-27-2023 18:11-0400 Systolic blood pressure 151 mm[Hg] Kay Obevelio Other Phone: [facility] 01-28-2022 03:38-0400 SaO2% (BldA) [Mass fraction] 97 % Justin Bell DO Work Phone: [facility] 01-28-2022 03:28-0400 Diastolic blood pressure 97 mm[Hg] Justin Deskins DO Work Phone: [facility] 01-28-2022 03:28-0400 Systolic blood pressure 149 mm[Hg] Justin Deskins DO Work Phone: [facility] 01-28-2022 02:02-0400 Body height 165.1 cm Justin Abelkins DO Work Phone: [facility] 01-28-2022 02:02-0400 Body mass index (BMI) [Ratio] 36.61 kg/m2 Justin Abelkins DO Work Phone: [facility] 01-28-2022 02:02-0400 Body temperature 98.1 [degF] Justin Abelkins DO Work Phone: [facility] 01-28-2022 02:02-0400 Body weight 99.79 kg Justin Abelkins DO Work Phone: [facility] 01-28-2022 02:02-0400 Heart rate 73 /min Justin Bell DO Work Phone: [facility] 01-28-2022 02:02-0400 Respiratory rate 18 /min Justin Bell DO Work Phone: [facility] Encounters Encounter Date Encounter Type Care Provider Facility Start: 08-20-2023 End: 08-20-2023 ambulatory [facility] Start: 05-31-2023 End: 05-31-2023 ambulatory [facility] Start: 05-31-2023 End: 05-31-2023 Office outpatient visit 15 minutes Kay Jones DO Work Phone: [facility] Procedures Date Procedure Procedure [...] KAY JONES Start: 12-19-2022 INSULIN, RANDOM KAY BENSON Start: 12-19-2022 IRON AND TIBC KAY CARRERA RHAUSER Start: 12-19-2022 Lipid panel KAY ARMAAN SHANICE Start: 12-19-2022 TSH WITH REFLEX TO F REE T4 IF ABNORMAL KAY JONES Start: 12-19-2022 VITAMIN D 25-HYDROXY,TOTAL KAYSaskia JONES Start: 12-19-2022 Lipid 1996 panel - S henri or Plasma Kay Jones DO Work Phone: Start: 01-28-2022 Radex ankle complete minimum 3 views Justin Bell DO Work Phone: Start: 02-11-2019 Radex fingr minimum 2 views MILAGROS NEIL Plan of Treatment Date Care Activity Detail Author Start: 12-04-2039 Zoster Vaccines (1 of 2) Zoster Vaccines (1 of 2) [facility] Start: 01-27-2033 DTaP/Tdap/Td Vaccines (9 - Td or Tdap) DTaP/Tdap/Td Vaccines (9 - Td or Tdap) [facility] Start: 12-20-2027 Lipid panel Lipid Panel [facility] Start: 11-02-2024 DTaP/Tdap/Td vaccine (8 - Td or Tdap) DTaP/Tdap/Td vaccine (8 - Td or Tdap) [facility] Start: 12-20-2023 Diabetes mellitus screening Diabetes Screening [facility] Start: 05-31-2023 End: 05-31-2023 Patient encounter procedure 05/31/2023 10:20 AM EST Office Visit [facility] [address] [place] [address] Kay Jones, DO [address] [facility] [place] [address] [facility] Start: 03-02-2023 Influenza vaccination Influenza Vaccine (#1) [facility] Start: 02-23-2023 End: 02-24-2024 Drugs of abuse screen W Reflex confirm panel - Urine Drug Screen, Urine With Reflex to Confirmation Lab Routine Pre-employment drug screening Expected: 02/23/2023 (Approximate), Expires: 02/24/2024 [facility] Service Area Work Phone: Immunizations Immunization Date Immunization Notes Care Provider Omar evanmonica 01-27-2023 tetanus toxoid, reduced diphtheria toxoid, and acellular pertussis vaccine, adsorbed Kay Jones Other Phone: [facility] 05-26-2015 influenza virus vaccine, unspecified formulation Kay Jones DO Work Phone: [facility] Work Phone: Payers Date Payer Category Payer [employer] ( [employer] others) [id number] 2022 [employer] others[employer] [id number] 2022-Present [address] [place] [address] [id number] 2021 [employer] ( and others) [id number] 2018 Unknown [id number] 1989 Unknown [id number]. 732 1989 Unknown [id number] [id number]. 356 1989 Unknown [id number] [id number]. 356 1989 Unknown [id number] 2.16.840.1.137426.3.579.2. 1069 1989 Unknown [id number] 2.16.840.1.947541.3.579.2. 1069 1989 Unknown [id number] 2.16.840.1.348497.3.579.2. 1245 1989 Unknown [id number] 2.16.840.1.433857.3.579.2. 1245 1989 Unknown [id number] 2.16.840.1.387592.3.579.2. 4 1989 Unknown [id number] 2.16.840.1.179719.3.579.2. 4 1989 Unknown [id number] 2.16.840.1.115586.3.579.2. 4 1989 Unknown [id number] 2.16.840.1.405503.3.579.2. 1244 1989 Unknown [id number] 2.16.840.1.067035.3.579.2. 479 1989 Unknown [id number] [id number]. 479 Unknown INDUSTRIAL\INDUSTRIAL Unknown [id number] Social History Date Type Detail Facility Start: 01-28-2022 Tobacco smoking status VAIS Smokes tobacco daily [facility] Phone: End: 08-14-2022 History of tobacco use Cigarette Smoker [facility] Phone: Start: 01-28-2022 End: 12-12-2022 Tobacco use and exposure Smokeless tobacco non-user [facility] Phone: Start: 01-28-2022 End: 05-31-2023 Alcohol intake Current drinker of alcohol (finding) [facility] Phone: Start: 1990 Sex Assigned At Not on file [facility] Phone: Start: 01-18-2022 End: 05-31-2023 Exposure to SARS-CoV-2 (event) Not sure [facility] Phone: Tobacco smoking consumption unknown [facility] Start: 12-12-2022 Tobacco smoking status NHIS Ex-smoker [facility] Work Phone: End: 08-14-2022 History of tobacco use Current smoker [facility] Work Phone: Start: 12-12-2022 End: 04-02-2023 History of Social function [facility] Work Phone: Start: 12-12-2022 End: 04-02-2023 Tobacco use panel [facility] Work Phone: Start: 1990 Sex Assigned At Female [facility] Start: 12-13-2022 Gender identity Identifies as female gender (finding) [facility] Work Phone: Start: 12-13-2022 Sexual orientation Heterosexual (finding) [facility] Work Phone: History of Present illness Narrative 05-31-2023 Kay Jones, DO - 05/31/2023 10:20 AM EST Note Date & Type Note Facility 05-31-2023 History of Present illness Narrative Subjective Patient ID: Nathalia Pride is a 32 y.o. female who presents [...] 12 weeks - seeing Dr Jeter in [place] 3. Follow up as needed Final diagnoses: [E55.9] Vitamin D deficiency [F33.41] Recurrent major depressive disorder, in partial remission (CMS/HCC) [R14.1] Gas pain [G47.33] Mild obstructive sleep apnea documented in this encounter [facility] Work Phone: History of Present illness Narrative 04-02-2023 Kay Jones DO - 04/02/2023 1:00 PM EDT Note Date & Type Note Facility 04-02-2023 History of Present illness Narrative Subjective Patient ID: Shannen Saucedo is a 32 y.o. female who presents for Employment Physical and Med Management (Stopped her control and now her hormones are all over the place ). HPI Patient is here today for employment physicial. 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 Review of Systems Constitutional: Negative for activity [...] two but then would discuss with her shuttleless loom weaver, Final diagnoses: [Z02.89] Encounter for physical examination related to employment [E28.2] PCOS (polycystic ovarian syndrome) documented in this encounter [facility] Work Phone: History of Present illness Narrative 02-23-2023 Kay Jones DO - 02/23/2023 9:20 AM EDT Note Date & Type Note Facility 02-23-2023 History of Present illness Narrative Subjective Patient ID: Shannen Saucedo is a 32 y.o. female who presents [...] Will be going back to school for [employer]. Patient also has mary having some sinus [...] obstructive sleep apnea documented in this encounter [facility] Work Phone: Evaluation note Note Date & Type Note Facility documented in this encounter [facility] Work Phone: Evaluation note Note Date & Type Note Facility documented in this encounter [facility] Work Phone: Evaluation note Note Date & Type Note Facility documented in this encounter [facility] Work Phone: Evaluation note Note Date & Type Note Facility documented in this encounter [facility] Work Phone: Hospital Discharge instructions Attachments Note Date & Type Note Facility Hospital Discharge instructions The following attachments cannot be sent through Care Everywhere.Ankle Sprain (Mongolian)documented in this encounter [facility] Work Phone: Reason for referral (narrative) Consultation (Routine) - Authorized Note Date & Type Note Facility Referral ID Status Reason Start Date Expiration Date V isits Requested Visits Authorized [id number] Authorized 02/23/2023 08/22/2023 1 1 [facility] Work Phone: Summary Purpose Family History [...] DATE CREATED AUTHOR AUTHOR'S ORGANIZ ATION 01/25/2020 [facility] ([place]) DATE CREATED AUTHOR AUTHOR'S ORGANIZ ATION 07/29/2021 [facility] DATE CREATED AUTHOR AUTHOR'S ORGANIZ ATION 12/25/2022 [facility] DATE CREATED AUTHOR AUTHOR'S ORGANIZ ATION 02/10/2023 [facility] DATE CREATED AUTHOR AUTHOR'S ORGANIZ ATION 03/19/2023 [facility] DATE CREATED AUTHOR AUTHOR'S ORGANIZ ATION 06/03/2023 [facility] DATE CREATED AUTHOR AUTHOR'S ORGANIZ ATION 08/20/2023 [facility] Reason for Visit (unrecogniz ed section and content) Reason Comments Follow-up 4 month URI Exposed to moldCough , congestion, swollen tonsils Symptoms started 2-3 weeks ago Employment 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 physical form Specialty Diagnoses / Procedures Referred By Iwona conway Referred To Contact Primary Care Procedures Follow Up In Primary Care Kay Jones [address] [place] [address] Referral ID Status Reason Start Date Expiration Date V isits Requested Visits Authorized [id number] Authorized 12/12/2022 06/10/2023 1 1 Reason Comments Employment Physical Med Management Stopped her co ntrol and now her hormones are all over the place Reason Comments Follow-up 3 month+12 weeks pre gnant Specialty Diagnoses / Procedures Referred By Iwona conway Referred To Contact Primary Care Procedures Follow Up In Primary Care - [facility] Kay Jones [address] [place] [address] Referral ID Status Reason Start Date Expiration Date V isits Requested Visits Authorized [id number] Authorized 02/23/2023 08/22/2023 1 1 Ordered Prescriptions [...] Care Teams (unrecognized sec tion and content) Commercial Appraiser Relationship Specialty Start Date End Date Kay Jones DO [address] [place] [address] PCP - General Internal Medicine 10/25/22 FOR [...] BE BASED ON THE PRIMARY CLINICAL RECORDS. [facility]. provides no warranty or guarantee of the accuracy or completeness of information in this document.
[2023-08-24 08:45] LABS: Absolute Lymphocyte Count 2.89 X10^3/uL (0.83-4.51); Absolute Neutrophil Count 9.2 X10^3/uL (2.0-7.7); Basophil# 0.03 X10^3/uL; Basophil% 0.2 % (0-1); Eosinophil# 0.08 X10^3/uL; Eosinophils% 0.6 % (0-5); Hematocrit 33.3 % (37-47); Hemoglobin 11.4 g/dL (12.0-15.0); Lymphocyte # 2.89 X10^3/ul (0.83-4.51); Lymphocyte % 22.5 % (19-41); Mean Corp Hgb Conc 34.2 g/dL (32-36); Mean Corpuscular Hgb 30.4 pg (27.0-32.0); Mean Corpuscular Volume 88.8 fL (81-99); Mean Platelet Vol. 10.9 fl (6.2-12.0); Monocyte# 0.54 X10^3/uL; Monocyte% 4.2 % (0-10); NRBC Flagged by Analyzer 0 % (0-5); Neutrophil # 9.24 X10^3/uL (2.7-7.7); Platelet Count 298 K/mm3 (150-450); RBC Distribution Width SD 42.2 fl (35.1-43.9); Red Blood Count 3.75 M/mm3 (4.2-5.4); White Blood Count 12.8 K/mm3 (4.4-11.0)
[2023-08-24 09:06] LABS: ALB/GLOB Ratio 0.6 RATIO (0.9-2.4); AST(SGOT) 16 U/L (15-37); Alanine Aminotransfer ALT/SGPT 13 U/L (13-56); Albumin, Serum 2.4 g/dL (3.2-5.0); Alkaline Phosphatase 57 U/L (45-117); Anion Gap 7 (5-15); BUN 8 mg/dL (7-18); BUN/Creat Ratio 12.7 RATIO (10-20); Calcium,Total 9.5 mg/dL (8.5-10.1); Chloride 107 mmol/L (98-107); Creatinine, Serum 0.63 mg/dL (0.55-1.02); EST Glomerular Filtration Rate 116 mL/min (>60); Est Glom Filt Rate - Afr Amer 140 mL/min (>60); Glucose 202 mg/dL (74-106); Glucose Challenge Gest 1H 50g 202 mg/dL (70-140); Potassium 3.4 mmol/L (3.5-5.1); Protein, Total 6.4 g/dL (6.4-8.2); Sodium Level 138 mmol/L (136-145)
[2023-08-24 09:33] LABS: HIV - WCH Non-Reactive (Nonreactive); Syphilis Antibodies Non-reactive
== END | disposition home or self-care (01) ==
LOC: LAB 07:47
PROVIDERS: PCP Internal Medicine; Referring Provider Advanced Practice Midwife; Visit Provider Advanced Practice Midwife
DX: Z13.1 Encounter for screening for diabetes mellitus (principal); I10 Essential (primary) hypertension
CPT/HCPCS: 36415; 80053; 82950; 85025; 86703; 86780

== ENCOUNTER 2023-09-03 12:57 | Outpatient (RCR) | payer OTHER, SELFPAY | END 2023-09-30 23:59 | LOC: DC 12:57 | PROVIDERS: PCP Internal Medicine; Referring Provider Advanced Practice Midwife; Visit Provider Advanced Practice Midwife | DX: O24.419 Gestational diabetes mellitus in pregnancy, unspecified control (principal) | CPT/HCPCS: 97802 ==

== ENCOUNTER 2023-09-26 10:17 | Outpatient (CLI) | payer OTHER, SELFPAY ==
[2023-09-26 10:39] VITALS: BP 143/72; PULSE 96; RESP 16; TEMP 36.4
[2023-09-26 10:40] VITALS: PULSE 100; O2SAT 97
[2023-09-26 11:04] LABS: ROM Internal Control Test YES-OK TO RESULT pt. (Internal QC); ROM Patient Test Negative (Negative); Record Kit Lot#, ROM+ K1409
--- NOTE | 2023-09-26 11:13 | OB.TRI.PN ---
Progress Notes Date of Service: 09/26/23 Progress Note: Patient presents for triage evaluation secondary to vaginal discharge FHT: 145 Moderate variability reactive no decelerations category I tracing [place]: no Contractions Assessment and plan: ROM negative, Reactive NST, reassuring maternal and status patient discharged to home to follow-up in office . See problem list details for additional plan information. Laboratory Studies: Laboratory Tests 09/26/23 Range/Units 10:33 Vag Amniotic Fld Detect Negative (Negative) Charges/Coding Multi Select Codes Urinary/Genital Urinary/Genital CPT Codes: 56650-55 non-stress test Interp Assessment & Plan (1) Vaginal discharge during : COMMENT: ROM neg 09/26/23 (2) Gestational diabetes mellitus (GDM) affecting , antepartum: COMMENT: nutrition consult and testing 4x daily. 08/30 started on metformin 500mg bid. 09/06 increased to 1000mg at PM, at 500mg am. 09/20 increased to 1000mg BID, consult with Dr. North for insulin mgmt f/u in 1 week if cant get in to start insulin with us. (3) ILA (obstructive sleep apnea): (4) GBS (group B streptococcus) UTI complicating : COMMENT: Treat in labor. not high enough for ATB (5) Obesity affecting : COMMENT: HgbA1c ordered with NOB labs=5.4% (6) : QUALIFIERS: Weeks of gestation: 28 weeks Qualified Code(s): Z3A.28 - 28 weeks gestation of COMMENT: NIPT low risk, declined carrier and ntd screen. unremarkable anatomy, consistent dates. (7) Supervision of high risk in first trimester: COMMENT: PRR MAYA 12/09/23 boy Shirley Kate : [place] (8) Hypertension: QUALIFIERS: Hypertension type: primary hypertension Qualified Code(s): I10 - Essential (primary) hypertension COMMENT: The patient carries a history of gestational hypertension with her first 2 pregnancies and the hypertension persisted after her second . She had been treated with Bystolic / Metoprolol but her blood pressure was elevated and switched to labetalol 200 mg twice daily which was recently increased to 400 mg twice daily and her blood pressure is well-controlled at this time.
== END 2023-09-26 11:40 | disposition home or self-care (01) ==
LOC: WPOUT 10:28 → WP 10:29
PROVIDERS: PCP Internal Medicine; Referring Provider Advanced Practice Midwife; Visit Provider Advanced Practice Midwife
DX: O24.419 Gestational diabetes mellitus in pregnancy, unspecified control (principal); Z3A.28 28 weeks gestation of pregnancy; O10.913 Unspecified pre-existing hypertension complicating pregnancy, third trimester; O99.213 Obesity complicating pregnancy, third trimester; O99.353 Diseases of the nervous system complicating pregnancy, third trimester; G47.33 Obstructive sleep apnea (adult) (pediatric)
CPT/HCPCS: 59025; 59050; 84112; 99221; G0378

== ENCOUNTER → 2023-10-10 | Outpatient (CLI) | payer OTHER, SELFPAY ==
--- NOTE | 2023-10-10 15:19 | US_ITS ---
STUDY: SECOND AND THIRD TRIMESTER OBSTETRICAL ULTRASOUND - LIMITED REASON FOR EXAM: Female, 32 years old hypertension LMP: 03/04/2023 PRIOR ULTRASOUND: None. TECHNIQUE: Transabdominal TECHNICAL QUALITY: Adequate. FINDINGS: There is a single intrauterine fetus. The fetus is in a cephalic presentation. There is demonstrated cardiac activity with a heart rate of 164 bpm. There is a normal amniotic fluid volume. The largest amniotic fluid pocket measures 5.3 cm. The amniotic fluid index (THOMAS) is 13.9 cm. The placenta is posterior in location and is not low lying. There are Grade 3 placental changes. The cervix measures 2.9 cm in length. BIOMETRY: BPD: 8.5: 34 weeks, 3 days HC: 32.4: 36 weeks, 5 days AC: 30.1: 34 weeks, 0 days FL: 5.6: 29 weeks, 2 days Age by LMP: 31 weeks, 3 days. MAYA by LMP: 12/09/2023. age by prior US: weeks, days. MAYA by prior US: . age by current US: 34 weeks, 4 days. MAYA by current US: 11/17/2023. Estimated weight: 2056 grams, +/- 308 grams, 82 percentile. Gender: US/OB Limited With Biometrics IMPRESSION: Single live fetus in a vertex presentation. survey not performed on this exam. Placenta is grade 3 and is not low-lying. Cervix is closed. age by current US: 34 weeks, 4 days. MAYA by current US: 11/17/2023. Estimated weight: 2056 grams, +/- 308 grams, 82 percentile. Electronically Signed: Armand Evangelista MD at 16:48 EDT ,
== END | disposition home or self-care (01) ==
LOC: US 15:18
PROVIDERS: PCP Internal Medicine; Referring Provider Obstetrics & Gynecology; Visit Provider Obstetrics & Gynecology
DX: O24.419 Gestational diabetes mellitus in pregnancy, unspecified control (principal); O16.9 Unspecified maternal hypertension, unspecified trimester; Z3A.00 Weeks of gestation of pregnancy not specified
CPT/HCPCS: 76816

== ENCOUNTER → 2023-10-15 | Outpatient (CLI) | payer OTHER, SELFPAY ==
--- NOTE | 2023-10-15 12:20 | US_ITS ---
STUDY: OBSTETRICAL ULTRASOUND - BIOPHYSICAL PROFILE REASON FOR EXAM: Female, 32 years old hypertension LMP: March 04, 2023. PRIOR ULTRASOUND: Comparison is made with prior study of October 10, 2023. TECHNIQUE: Transabdominal TECHNICAL QUALITY: Adequate. FINDINGS: There is a single intrauterine fetus. The fetus is in a cephalic presentation. There is demonstrated cardiac activity with a heart rate of 143 bpm. There is a normal amniotic fluid volume. The largest amniotic fluid pocket measures 6.4 cm. The amniotic fluid index (THOMAS) is 17 cm. The placenta is posterior in location and is not low lying. There are Grade 3 placental changes. Age by LMP: 32 weeks, 1 days. MAYA by LMP: December 09, 2023. age by prior US: 35 weeks, 2 days. MAYA by prior US: November 17, 2023. BIOPHYSICAL PROFILE: Breathing Movements (FBM): 2 Gross Body Movements (GBM): 2 Tone (FT): 2 Amniotic Fluid Volume (AFV): 2 TOTAL SCORE: 8 / 8 US/Biophysical Prof W/O Non Stres IMPRESSION: Normal biophysical profile of 02/06. Electronically Signed: Fredy Short MD at 8:30 EDT ,
== END | disposition home or self-care (01) ==
LOC: OPUS 12:20
PROVIDERS: PCP Internal Medicine; Referring Provider Obstetrics & Gynecology; Visit Provider Obstetrics & Gynecology
DX: O24.419 Gestational diabetes mellitus in pregnancy, unspecified control (principal); O16.3 Unspecified maternal hypertension, third trimester; Z3A.32 32 weeks gestation of pregnancy
CPT/HCPCS: 76819

== ENCOUNTER → 2023-10-22 | Outpatient (CLI) | payer OTHER, SELFPAY ==
--- NOTE | 2023-10-22 12:14 | US_ITS ---
STUDY: OBSTETRICAL ULTRASOUND - BIOPHYSICAL PROFILE REASON FOR EXAM: Female, 32 years old hypertension LMP: March 04, 2023. PRIOR ULTRASOUND: Comparison is made with prior study dated October 15, 2023. TECHNIQUE: Transabdominal TECHNICAL QUALITY: Adequate. FINDINGS: There is a single intrauterine fetus. The fetus is in a breech presentation. There is demonstrated cardiac activity with a heart rate of 144 bpm. There is a normal amniotic fluid volume. The largest amniotic fluid pocket measures 7.4 cm x 2.2 cm. The amniotic fluid index (THOMAS) is 19.5 cm. The placenta is posterior in location and is not low lying. There are Grade 3 placental changes. Age by LMP: 33 weeks, 1 days. MAYA by LMP: December 09, 2023. age by prior US: 36 weeks, 2 days. MAYA by prior US: November 17, 2023. BIOPHYSICAL PROFILE: Breathing Movements (FBM): 2 Gross Body Movements (GBM): 2 Tone (FT): 2 Amniotic Fluid Volume (AFV): 2 TOTAL SCORE: 8 / 8 US/Biophysical Prof W/O Non Stres IMPRESSION: Normal biophysical profile of 8/8. Electronically Signed: Fredy Short MD at 15:12 EDT ,
== END | disposition home or self-care (01) ==
LOC: OPUS 12:14
PROVIDERS: PCP Internal Medicine; Referring Provider Obstetrics & Gynecology; Visit Provider Obstetrics & Gynecology
DX: O24.419 Gestational diabetes mellitus in pregnancy, unspecified control (principal); O16.9 Unspecified maternal hypertension, unspecified trimester; Z3A.00 Weeks of gestation of pregnancy not specified
CPT/HCPCS: 76819

== ENCOUNTER 2023-10-29 13:15 | Outpatient (CLI) | payer OTHER, SELFPAY ==
[2023-10-29] VITALS (10 sets, daily range): BP systolic 145–157; BP diastolic 85–91; PULSE 89–96; RESP 16; TEMP 36.6; O2SAT 93–97
--- NOTE | 2023-10-29 15:45 | OB.TRI.HP_ITS ---
HPI - General HPI Narrative NIKKI KENT, is a 32 F who presents at 34.1 with 6/8 BPP and presents for NST. denies vb/ctx/lof. good fm. Maternal Data Information MAYA Calculator Estimated Delivery Date Method Current WG Current Estimate 12/09/23 LMP (Certain) 34w 1d PFSH PFSH Medical History Alcohol use Anxiety Back pain Depression Dysmenorrhea Fatty liver Gastric reflux History of edema History of IBS History of pain when walking Hx of fracture of finger Hypertension Leg cramps Menorrhagia with regular cycle Migraines ILA (obstructive sleep apnea) PCOS (polycystic ovarian syndrome) Rectal pain Smoker Home Medications omeprazole 20 mg capsule,delayed release 40 mg PO QHS 05/25/20 [History Last Billy en Unknown] aspirin 81 mg tablet,delayed release (Adult Aspirin Regimen) 81 mg PO DAILY #30 tabs 05/10/23 [Rx Last Taken Unknown] docusate sodium 100 mg capsule (Colace) 100 mg PO DAILY 05/10/23 [History Last Taken Unknown] cholecalciferol (vitamin D3) 1,250 mcg (50,000 unit) capsule 1,250 mcg PO QWEEK 08/09/23 [History Last Taken Unknown] labetalol 200 mg tablet 400 mg (2 x 200 mg) PO BID 30 days #120 tabs 08/23/23 [Rx Last Taken Unknown] blood sugar diagnostic (Blood Glucose Test strips) #120 ea 08/24/23 [Rx Last Taken Unknown] blood-glucose meter #1 ea 08/24/23 [Rx Last Taken Unknown] lancets #200 ea 08/24/23 [Rx Last Taken Unknown] mecobalamin (vitamin B12) 1,000 mcg chewable tablet 1,000 mcg PO DAILY 08/27/23 [History Last Taken Unknown] vits 75-iron 28 mg-folic acid 800 mcg-omega3 440 mg oral pack (One Daily ) pkg PO 08/27/23 [History Last Taken Unknown] insulin NPH isoph U-100 human 100 unit/mL (3 mL) subcutaneous pen (Humulin N NPH U-100 Insulin KwikPen) 28 unit (0.28 mL) subcut QHS #15 mL 10/26/23 [Rx Last Taken Unknown] Allergy/AdvReac Type Severity Reaction Status Date / Time minocycline Allergy other Verified 10/29/23 13:44 acetaminophen [From Vicodin] AdvReac Nausea/Vom/ Verified 10/29/23 13:44 Diarrhea hydrocodone [From Vicodin] AdvReac Nausea/Vom/ Verified 10/29/23 13:44 Diarrhea metoclopramide [From Reglan] AdvReac Other Verified 10/29/23 13:44 promethazine [From Phenergan] AdvReac Other Verified 10/29/23 13:44 Family History Mother Hypertension Grandfather Prostate cancer Other Ovarian cancer Surgical History History of lumbar discectomy History of open reduction and internal fixation (ORIF) procedure s/p polyp removal Social History adopted: No household members: spouse and children number of children: 2 current occupational status: employed current occupation: [employer] current occupational exposures/hazards: No pets and animals: Yes pets and animals: dog(s) history of recent travel: No sexually active: Yes Smoking Status: Former smoker alcohol intake: current alcohol intake frequency: holidays/special occasions only substance use type: does not use caffeine: Yes what type of physical activity do you participate in: weight training frequency: 1-2 times per week seatbelt use: always do you feel safe at home: Yes additional social history: - [place] History 3 Elective abortions Hx Para 2 Spontaneous abortions Hx # Term Pregnancies Ectopic pregnancies Hx # Pregnancies Multiple births # of living children Past Pregnancies Del. Date Name GA/Weeks Outcome Route Bth Weight Infant Gen Labor Lgth Anesthesia Del Locatn Provider FOB 03/01/08 Madelaine 37 live - full term 7lbs ?oz Female ep idural [facility] Dr. Ron Rainey 01/12/15 Shirley 37 live - full term 7lbs 12oz Female e pidural [facility] Dr. Joseph Koroma Delivery Date: 03/01/08 Last Updated by: Maribeth Rider Gestational hypertension Delivery Date: 01/12/15 Last Updated by: Maribeth Rider Gestational hypertension Visit Details Expected Delivery Route/Plan Labor Preferences- CB/BF classes: yes labor support person: Ga labor intervention preferences: [] pain management options preferred: limited cut cord/dad catch: yes : yes PP control planned: discussed discussed possible routes of delivery and associated risks: [] special requests: [] Plans Covid status: [] Flu vaccine: declined Tdap vaccine: given Rhogam: NA LARC form signed: yes movement and labor precautions reviewed. Problem list reviewed and updated with the most current plan of care details and appropriate orders placed. Relevant counseling for the gestational age provided. Continue routine care and follow up unless otherwise noted in visit notes/problem list details OB Flowsheet Initial Weight: 220 lb Date -?-?-?-?-?-?-?-?-?--?-?-?- EGA Weight BP Urine Prot -?-?-?-?-?-?-?-?-?-?-?-?- Glucose FHR FuHt Pres Dilation -?-?-?-?-?-?-?-?-?-?-?-?- Effaced St Visit Note 05/10/23 -?-?-?-?-?-?-?-?-?-?-?-?- 9w 4d 220 lb 6 oz (+6 oz) 137/83 -?-?-?-?-?-?-?-?-?-?-?-?- 171 -?-?-?-?-?-?-?-?-?-?-?-?- kw-CLR cons with dates. plans NIPT. kw-CLR cons with dates. plan s NIPT. start asa at 12 weeks 06/04/23 -?-?-?-?-?-?-?-?-?-?-?-?- 13w 1d 224 lb 6 oz (+4 lb 6 oz) 142/85 Negative -?-?-?-?-?-?-?-?-?-?-?-?- Negative 165 -?-?-?-?-?-?-?-?-?-?-?-?- LC- normal labs. LC- no vb/cramping. normal l abs. having increased thirst glucose 86 in office. o LC- no vb/cramping. normal l abs. having increased thirst glucose 86 in office. declines afp. 07/06/23 -?-?-?-?-?-?-?-?-?-?-?-?- 17w 5d 230 lb 2 oz (+10 lb 2 oz) 157/88 Negative -?-?-?-?-?-?-?-?-?--?-?-?- Negative 150 -?-?-?-?-?-?-?-?-?-?-?-?- SM- no vb crmapi ng updated PL, ekg ordered SM- no vb crmaping updated P L, ekg ordered desires sterilization. discussed PPTL SM- no vb crmaping updated P L, ekg ordered desires sterilization. discussed PPTL. discussed tracking bps to see if medicine needs increased. 08/01/23 -?-?-?-?-?-?-?-?-?-?-?--?- 21w 3d 237 lb (+17 lb) 152/88 Negative -?-?-?-?-?-?-?-?-?-?-?-?- Negative 153 -?-?-?-?-?-?-?-?-?-?-?-?- JV- stopping met oprolol 50 daily, and starting labetalol bid. consulting mfm. 08/09/23 -?-?-?-?-?-?-?-?-?-?-?-?- 22w 4d 234 lb 8 oz (+14 lb 8 oz) 145/85 -?-?-?-?-?-?-?-?-?-?-?-?- 155 -?-?-?-?-?-?-?-?-?-?-?-?- KW- BPs now 130- 140/80s. KW- no vb/lof/ctx. good fm. BPs now 130-140/80s. Dizziness in the mornings only-encouraged taking BP when dizzy-suspect low glucose due to timing of taking medication. Will repeat CMP with 28 week labs. KW- no vb/lof/ctx. good fm. BPs now 130-140/80s. Dizziness in the mornings only-encouraged taking BP when dizzy-suspect low glucose due to timing of taking medication. Will repeat CMP with 28 week labs. P/C ratio today 03/01/24 -?-?-?-?-?--?-?-?-?-?-?-?- 25w 5d 236 lb (+16 lb) 125/72 Negative -?-?-?-?-?-?-?-?-?-?-?-?- Negative 147 -?-?-?-?-?-?-?-?-?-?-?-?- LC- no vb/ctx/lo f. good fm.all fastings over 95 to start on metformin rto in 1 week. 09/07/23 -?-?-?-?-?-?-?-?-?-?-?-?- 26w 5d 128 lb (-92 lb) 102/58 Negative -?-?-?-?-?-?-?-?-?-?-?-?- Negative 150 -?-?-?-?-?-?-?-?-?-?-?-?- LC- 1 fasting un isai 95, 3 over. metformin increased to 1000mg at night, stay at 500mg AM. no vb/ctx/lof. good fm. 09/21/23 -?-?-?-?-?-?-?-?-?-?-?-?- 28w 5d 239 lb 4 oz (+19 lb 4 oz) 128/76 Negative -?-?-?-?--?-?-?-?-?-?-?-?- Negative 145 28 -?-?-?-?-?-?-?-?-?-?-?-?- LC- fasting cont over 95- increased metformin 1000mg BID and consulted Dr. North for insulin management cw SM agrees with managemt. to have appt in 1 week with us if cant get in with to start insulin next week if no improvement on fastings. 09/27/23 -?-?-?-?-?-?-?-?-?-?-?-?- 29w 4d 239 lb 4 oz (+19 lb 4 oz) 124/82 Negative -?-?-?-?-?-?-?-?-?-?-?-?- Negative 150 30 -?-?-?-?-?-?-?-?-?-?-?-?- MH-No VB. Good F M. FBS still >95:start 10U NPH QHS. Call readings to 09/3010/05/23 -?-?-?-?-?-?-?-?-?-?-?-?- 30w 5d 241 lb (+21 lb) 132/83 Negative -?-?-?-?-?-?-?-?-?-?-?-?- Negative 145 33 -?-?-?-?-?-?-?-?-?-?-?-?- - increasing i nsulin at night getting closer to goal 10/19/23 -?-?-?--?-?-?-?-?-?-?-?-?- 32w 5d 244 lb 8 oz (+24 lb 8 oz) 134/76 Negative -?-?-?-?-?-?-?-?-?-?-?-?- Negative 140 33 -?-?-?-?-?-?-?-?-?-?-?-?- JV- fasting 96, increasing insulin 2 more units. rpt bp JV- fasting 96, increasing i nsulin 2 more units. rpt bp was much better. nst reactive. 10/26/23 -?-?-?-?-?--?-?-?-?-?-?-?- 33w 5d 249 lb (+29 lb) 137/73 -?-?-?-?-?-?-?-?-?-?-?-?- 140 -?-?-?-?-?-?-?-?-?-?-?-?- JV- no lof, vagi nal bleeding, or cramping. fasting glucose levels are now better but her 2 hrs after breakfast are higher. stopping metformin and starting twice a day NPH NST FHR Rate Baby A Baseline: 130 Variability:: Moderate Accelerations:: 15 x 15 Decelerations:: None NST Reactive:: Yes FHR Category:: Category I Assessment & Plan (1) Gestational diabetes mellitus (GDM) affecting , antepartum: COMMENT: 2x weekly nsts at 32, growth US q 4. deliver 38 due to chtn also. nutrition consult and testing 4x daily. 08/30 started on metformin 500mg bid. 09/06 increased to 1000mg at PM, at 500mg am. 09/20 increased to 1000mg BID, consult with Dr. North 09/26 FBS>95:start NPH 10U Qhs, call readings 09/30 and titrate up 2U QD if >95 10/26/23- pt unable to get a hold of Dr. north's office. stopping metformin and starting nph at breakfast 20 units, keep 28 units at bedtime (2) Hypertension: QUALIFIERS: Hypertension type: primary hypertension Qualified Code(s): I10 - Essential (primary) hypertension COMMENT: weekly bpp at 32, weekly nst. The patient carries a history of gestational hypertension with her first 2 pregnancies and the hypertension persisted after her second . She had been treated with Bystolic / Metoprolol but her blood pressure was elevated and switched to labetalol 200 mg twice daily which was recently increased to 400 mg twice daily and her blood pressure is well-controlled at this time. PLAN: Plan Patient presents for triage evaluation secondary to NST. FHT: Moderate variability reactive no decelerations category I tracing [place]: no Contractions Assessment and plan: Reactive NST, reassuring maternal and status patient discharged to home to follow-up in office. notify office with consistent elevated BP at home for medication adjustment. See problem list details for additional plan information. Charges/Coding Procedures Urinary/Genital 52xxx-59xxx: 91869-09 non-stress test Interp
== END 2023-10-29 14:32 | disposition home or self-care (01) ==
LOC: WPOUT 13:22 → WP 13:23
PROVIDERS: PCP Internal Medicine; Referring Provider Registered Nurse; Visit Provider Registered Nurse
DX: O10.913 Unspecified pre-existing hypertension complicating pregnancy, third trimester (principal); O24.415 Gestational diabetes mellitus in pregnancy, controlled by oral hypoglycemic drugs; Z87.891 Personal history of nicotine dependence; Z3A.34 34 weeks gestation of pregnancy; Z79.899 Other long term (current) drug therapy
CPT/HCPCS: 59050; 99221; G0378

== ENCOUNTER → 2023-10-29 | Outpatient (CLI) | payer OTHER, SELFPAY ==
--- NOTE | 2023-10-29 12:15 | US_ITS ---
STUDY: OBSTETRICAL ULTRASOUND - BIOPHYSICAL PROFILE REASON FOR EXAM: Female, 32 years old hypertension LMP: March 04, 2023. PRIOR ULTRASOUND: Comparison is made with prior study October 22, 2023. TECHNIQUE: Transabdominal TECHNICAL QUALITY: Adequate. FINDINGS: There is a single intrauterine fetus. The fetus is in a cephalic presentation. There is demonstrated cardiac activity with a heart rate of 140 bpm. There is a normal amniotic fluid volume. The largest amniotic fluid pocket measures 8.3 cm x 4.9 cm. The amniotic fluid index (THOMAS) is 16.3 cm. The placenta is posterior in location and is not low lying. There are Grade 3 placental changes. Age by LMP: 34 weeks, 1 days. MAYA by LMP: December 09, 2023. age by prior US: 37 weeks, 2 days. MAYA by prior US: November 17, 2023. BIOPHYSICAL PROFILE: Breathing Movements (FBM): 0 Gross Body Movements (GBM): 2 Tone (FT): 2 Amniotic Fluid Volume (AFV): 2 TOTAL SCORE: 6 / 8 US/Biophysical Prof W/O Non Stres IMPRESSION: biophysical profile of 6/8. There is also were called to the labor and delivery. Electronically Signed: Fredy Short MD at 13:32 EDT ,
== END | disposition home or self-care (01) ==
LOC: OPUS 12:15
PROVIDERS: PCP Internal Medicine; Referring Provider Obstetrics & Gynecology; Visit Provider Obstetrics & Gynecology
DX: O24.419 Gestational diabetes mellitus in pregnancy, unspecified control (principal); O16.9 Unspecified maternal hypertension, unspecified trimester; Z3A.00 Weeks of gestation of pregnancy not specified
CPT/HCPCS: 76819

== ENCOUNTER 2023-10-30 12:53 | Outpatient (CLI) | payer OTHER, SELFPAY ==
[2023-10-30] VITALS (9 sets, daily range): BP systolic 135–151; BP diastolic 75–83; PULSE 89–93; RESP 16; TEMP 36.9; O2SAT 98; BMI 41.1
[2023-10-30 13:56] LABS: Hematocrit 32.5 % (37-47); Hemoglobin 10.6 g/dL (12.0-15.0); Mean Corp Hgb Conc 32.6 g/dL (32-36); Mean Corpuscular Hgb 28.1 pg (27.0-32.0); Mean Corpuscular Volume 86.2 fL (81-99); Mean Platelet Vol. 10.9 fl (6.2-12.0); Platelet Count 281 K/mm3 (150-450); RBC Distribution Width CV 12.9 % (11.6-14.6); RBC Distribution Width SD 40.2 fl (35.1-43.9); Red Blood Count 3.77 M/mm3 (4.2-5.4); White Blood Count 11.7 K/mm3 (4.4-11.0)
[2023-10-30 14:09] LABS: Protein, Urine (Random) 9.3 mg/dL (<11.9); Protein:Creat Ratio 250 mg/g CRE (0-200)
[2023-10-30 14:24] LABS: AST(SGOT) 12 U/L (15-37); Alanine Aminotransfer ALT/SGPT 12 U/L (13-56); Creatinine, Serum 0.65 mg/dL (0.55-1.02); EST Glomerular Filtration Rate 111 mL/min (>60); Est Glom Filt Rate - Afr Amer 134 mL/min (>60); Uric Acid 3.7 mg/dL (2.6-6.0)
--- NOTE | 2023-10-30 15:12 | OB.TRI.HP_ITS ---
HPI - General HPI Narrative NIKKI KENT, is a 32 F who presents with elevated bps. 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 she hasn't been checking her blood sugars as often as she should either. she isn on 28 nph at night and 20 u NPH in am. she denies any bleeding or lof admits good fm. no JUAREZ BV, feels better now Maternal Data Information MAYA Calculator Estimated Delivery Date Method Current WG Current Estimate 12/09/23 LMP (Certain) 34w 2d PFSH PFSH Medical History Alcohol use Anxiety Back pain Depression Dysmenorrhea Fatty liver Gastric reflux History of edema History of IBS History of pain when walking Hx of fracture of finger Hypertension Leg cramps Menorrhagia with regular cycle Migraines ILA (obstructive sleep apnea) PCOS (polycystic ovarian syndrome) Rectal pain Smoker Home Medications omeprazole 20 mg capsule,delayed release 40 mg PO QHS 05/25/20 [History Last Taken Unknown] aspirin 81 mg tablet,delayed release (Adult Aspirin Regimen) 81 mg PO DAILY #30 tabs 05/10/23 [Rx Last Taken Unknown] docusate sodium 100 mg capsule (Colace) 100 mg PO DAILY 05/10/23 [History Last Taken Unknown] cholecalciferol (vitamin D3) 1,250 mcg (50,000 unit) capsule 1,250 mcg PO QWEEK 08/09/23 [History Last Taken Unknown] blood sugar diagnostic (Blood Glucose Test strips) #120 ea 08/24/23 [Rx Last Taken Unknown] blood-glucose meter #1 ea 08/24/23 [Rx Last Taken Unknown] lancets #200 ea 08/24/23 [Rx Last Taken Unknown] mecobalamin (vitamin B12) 1,000 mcg chewable tablet 1,000 mcg PO DAILY 08/27/23 [History Last Taken Unknown] vits 75-iron 28 mg-folic acid 800 mcg-omega3 440 mg oral pack (One Daily ) 1 pkg PO DAILY 08/27/23 [History Last Taken Unknown] insulin NPH isoph U-100 human 100 unit/mL (3 mL) subcutaneous pen (Humulin N NPH U-100 Insulin KwikPen) 28 unit (0.28 mL) subcut QHS #15 mL 10/26/23 [Rx Last Taken Unknown] labetalol 200 mg tablet 400 mg (2 x 200 mg) PO TID 30 days #120 tabs 10/30/23 [Rx Last Taken Unknown] Allergy/AdvReac Type Severity Reaction Status Date / Time minocycline Allergy other Verified 10/30/23 13:21 acetaminophen [From Vicodin] AdvReac Nausea/Vom/ Verified 10/30/23 13:21 Diarrhea hydrocodone [From Vicodin] AdvReac Nausea/Vom/ Verified 10/30/23 13:21 Diarrhea metoclopramide [From Reglan] AdvReac Other Verified 10/30/23 13:21 promethazine [From Phenergan] AdvReac Other Verified 10/30/23 13:21 Family History Mother Hypertension Grandfather Prostate cancer Other Ovarian cancer Surgical History History of lumbar discectomy History of open reduction and internal fixation (ORIF) procedure s/p polyp removal Social History adopted: No household members: spouse and children number of children: 2 current occupational status: employed current occupation: [employer] current occupational exposures/hazards: No pets and animals: Yes pets and animals: dog(s) history of recent travel: No sexually active: Yes Smoking Status: Former smoker alcohol intake: current alcohol intake frequency: holidays/special occasions only substance use type: does not use caffeine: Yes what type of physical activity do you participate in: weight training frequency: 1-2 times per week seatbelt use: always do you feel safe at home: Yes additional social history: - [place] History 3 Elective abortions Hx Para 2 Spontaneous abortions Hx # Term Pregnancies Ectopic pregnancies Hx # Pregnancies Multiple births # of living children Past Pregnancies Del. Date Name GA/Weeks Outcome Route Bth Weight Gen Labor Lgth Anesthesia Del Locatn Provider FOB 03/01/08 Madelaine 37 live - full term 7lbs ?oz Female ep idural [facility] Dr. Ron Rainey 01/12/15 Shirley 37 live - full term 7lbs 12oz Female e pidural [facility] Dr. Joseph Koroma Delivery Date: 03/01/08 Last Updated by: Maribeth Rider Gestational hypertension Delivery Date: 01/12/15 Last Updated by: Maribeth Rider Gestational hypertension Visit Details Expected Delivery Route/Plan Labor Preferences- CB/BF classes: yes labor support person: [place] labor intervention preferences: [] pain management options preferred: limited cut cord/dad catch: yes : yes PP control planned: discussed discussed possible routes of delivery and associated risks: [] special requests: [] Plans Covid status: [] Flu vaccine: declined Tdap vaccine: given Rhogam: NA LARC form signed: yes movement and labor precautions reviewed. Problem list reviewed and updated with the most current plan of care details and appropriate orders placed. Relevant counseling for the gestational age provided. Continue routine care and follow up unless otherwise noted in visit notes/problem list details OB Flowsheet Initial Weight: 220 lb Date -?-?-?-?-?-?-?-?-?-?-?-?- EGA Weight BP Urine Prot -?-?-?-?-?-?-?-?-?-?-?-?- Glucose FHR FuHt Pres Dilation -?-?-?-?-?-?--?-?-?-?-?-?- Effaced St Visit Note 05/10/23 -?-?-?-?-?-?-?-?-?-?-?-?- 9w 4d 220 lb 6 oz (+6 oz) 137/83 -?-?-?-?-?-?-?-?-?-?-?-?- 171 -?-?-?-?-?-?-?-?-?-?-?-?- kw-CLR cons with dates. plans NIPT. kw-CLR cons with dates. plan s NIPT. start asa at 12 weeks 06/04/23 -?-?-?-?-?-?-?-?-?-?-?-?- 13w 1d 224 lb 6 oz (+4 lb 6 oz) 142/85 Negative -?-?-?-?-?-?-?-?-?--?-?-?- Negative 165 -?-?-?-?-?-?-?-?-?-?-?-?- LC- normal labs. LC- no vb/cramping. normal l abs. having increased thirst glucose 86 in office. o LC- no vb/cramping. normal l abs. having increased thirst glucose 86 in office. declines afp. 07/06/23 -?-?-?-?-?-?-?-?-?-?-?-?- 17w 5d 230 lb 2 oz (+10 lb 2 oz) 157/88 Negative -?-?-?-?-?-?-?-?-?-?-?-?- Negative 150 -?-?-?-?-?-?-?-?-?-?-?-?- SM- no vb crmapi ng updated PL, ekg ordered SM- no vb crmaping updated P L, ekg ordered desires sterilization. discussed PPTL SM- no vb crmaping updated P L, ekg ordered desires sterilization. discussed PPTL. discussed tracking bps to see if medicine needs increased. 08/01/23 -?-?-?-?-?-?-?-?-?-?-?-?- 21w 3d 237 lb (+17 lb) 152/88 Negative -?-?-?-?-?-?-?-?-?-?-?-?- Negative 153 -?-?-?-?-?-?-?-?-?-?-?-?- JV- stopping met oprolol 50 daily, and starting labetalol bid. consulting [facility]. 08/09/23 -?-?-?-?-?-?-?-?-?-?-?-?- 22w 4d 234 lb 8 oz (+14 lb 8 oz) 145/85 -?-?-?-?-?-?-?-?-?-?-?-?- 155 -?-?-?-?-?-?-?-?-?-?-?-?- KW- BPs now 130- 140/80s. KW- no vb/lof/ctx. good fm. BPs now 130-140/80s. Dizziness in the mornings only-encouraged taking BP when dizzy-suspect low glucose due to timing of taking medication. Will repeat CMP with 28 week labs. KW- no vb/lof/ctx. good fm. BPs now 130-140/80s. Dizziness in the mornings only-encouraged taking BP when dizzy-suspect low glucose due to timing of taking medication. Will repeat CMP with 28 week labs. P/C ratio today 08/31/23 -?-?-?-?-?-?-?-?-?-?-?-?- 25w 5d 236 lb (+16 lb) 125/72 Negative -?-?-?-?-?-?-?-?-?-?-?-?- Negative 147 -?-?-?-?-?-?-?-?-?-?-?-?- LC- no vb/ctx/lo f. good fm.all fastings over 95 to start on metformin rto in 1 week. 09/07/23 -?-?-?-?-?-?-?-?-?-?-?-?- 26w 5d 128 lb (-92 lb) 102/58 Negative -?-?-?-?-?-?-?-?-?-?-?-?- Negative 150 -?-?-?-?-?-?-?-?-?-?-?-?- LC- 1 fasting un isai 95, 3 over. metformin increased to 1000mg at night, stay at 500mg AM. no vb/ctx/lof. good fm. 09/21/23 -?-?-?-?-?-?-?-?-?-?-?-?- 28w 5d 239 lb 4 oz (+19 lb 4 oz) 128/76 Negative -?-?-?-?-?-?-?-?-?-?-?-?- Negative 145 28 -?-?-?-?-?-?-?-?-?-?-?-?- LC- fasting cont over 95- increased metformin 1000mg BID and consulted Dr. North for insulin management cw STACIA agrees with managemt. to have appt in 1 week with us if cant get in with to start insulin next week if no improvement on fastings. 09/27/23 -?-?-?-?-?-?-?-?-?-?-?-?- 29w 4d 239 lb 4 oz (+19 lb 4 oz) 124/82 Negative -?-?-?-?-?-?-?-?-?-?-?-?- Negative 150 30 -?-?-?-?-?-?-?-?-?-?-?-?- MH-No VB. Unruly Baird M. FBS still >95:start 10U NPH QHS. Call readings to 09/3010/05/23 -?-?-?-?-?-?-?-?-?-?-?-?- 30w 5d 241 lb (+21 lb) 132/83 Negative -?-?-?-?-?-?-?-?-?-?-?-?- Negative 145 33 -?-?-?-?-?-?-?-?-?-?-?-?- - increasing i nsulin at night getting closer to goal 10/19/23 -?-?-?-?-?-?-?-?-?-?-?-?- 32w 5d 244 lb 8 oz (+24 lb 8 oz) 134/76 Negative -?-?-?-?-?-?-?-?-?-?-?-?- Negative 140 33 -?-?-?-?-?-?-?-?-?-?-?-?- JV- fasting 96, increasing insulin 2 more units. rpt bp JV- fasting 96, increasing i nsulin 2 more units. rpt bp was much better. nst reactive. 10/26/23 -?-?-?-?-?-?-?-?-?-?-?-?- 33w 5d 249 lb (+29 lb) 137/73 -?-?-?-?-?-?-?-?-?-?-?-?- 140 -?-?-?-?-?-?-?-?-?-?-?-?- JV- no lof, vagi nal bleeding, or cramping. fasting glucose levels are now better but her 2 hrs after breakfast are higher. stopping metformin and starting twice a day NPH Physical Exam Const alert, oriented x3 and no apparent distress HEENT Head and Scalp: normocephalic and atraumatic Eyes EOMs intact bilaterally Neck full ROM and no lymphadenopathy Chest inspection of chest normal Resp normal respiratory effort GI GI Narrative: gravid, abdomen nontender, AGA Neuro no focal motor deficits Motor Exam: clonus absent NST FHR Rate Baby A Baseline: 140 Variability:: Moderate Accelerations:: 15 x 15 Decelerations:: None NST Reactive:: Yes FHR Category:: Category I Uterine Activity:: no regular Assessment & Plan (1) Contraception management: COMMENT: wants 6 wk pp tubal (2) Gestational diabetes mellitus (GDM) affecting , antepartum: COMMENT: 2x weekly nsts at 32, growth US q 4. deliver 38 due to chtn also. nutrition consult and testing 4x daily. 08/30 started on metformin 500mg bid. 09/06 increased to 1000mg at PM, at 500mg am. 09/20 increased to 1000mg BID, consult with Dr. North 09/26 FBS>95:start NPH 10U Qhs, call readings 09/30 and titrate up 2U QD if >95 10/26/23- pt unable to get a hold of Dr. north's office. stopping metformin and starting nph at breakfast 20 units, keep 28 units at bedtime (3) ILA (obstructive sleep apnea): (4) GBS (group B streptococcus) UTI complicating : QUALIFIERS: Trimester: third trimester Qualified Code(s): O23.43 - Unspecified infection of urinary tract in , third trimester; B95.1 - Streptococcus, group B, as the cause of diseases classified elsewhere COMMENT: Treat in labor. not high enough for ATB (5) Obesity affecting : QUALIFIERS: Trimester: third trimester COMMENT: HgbA1c ordered with NOB labs=5.4% (6) : QUALIFIERS: Weeks of gestation: 33 weeks Qualified Code(s): Z3A.33 - 33 weeks gestation of COMMENT: NIPT low risk, declined carrier and ntd screen. unremarkable anatomy, consistent dates. (7) Supervision of high risk in first trimester: COMMENT: PRR MAYA 12/09/23 boy Shirley Kate : [place] (8) Hypertension: QUALIFIERS: Hypertension type: primary hypertension Qualified Code(s): I10 - Essential (primary) hypertension COMMENT: weekly bpp at 32, weekly nst. The patient carries a history of gestational hypertension with her first 2 pregnancies and the hypertension persisted after her second . She had been treated with Bystolic / Metoprolol but her blood pressure was elevated and switched to labetalol 200 mg twice daily which was recently increased to 400 mg twice daily and her blood pressure is well-controlled at this time. (9) Abnormal Pap smear of cervix: COMMENT: ASCUS negative HPV, repeat in 3 years (10) Herniated nucleus pulposus, L4-5 left: COMMENT: unable to obtain epidural in labor. has nerve stimulator. (11) Anxiety: COMMENT: Changed from Fluoxeine to zoloft 50mg. Stable (12) Sciatica of left side: PLAN: Plan labetalol increased to TID and insulin increased, patient to start checking BS 4 times daily as recommended in order to know if meal time insulin needed Charges/Coding Procedures Urinary/Genital 52xxx-59xxx: [id number] non-stress test Interp Multi Select Codes Visit Charges Office Visit/Consults: 51631 OV L3 Est 20min
[2023-10-30 15:17] LABS: Bedside Glucose 118 mg/dL (74-106)
== END 2023-10-30 15:15 | disposition home or self-care (01) ==
LOC: WPOUT 13:01 → WP 13:04
PROVIDERS: PCP Internal Medicine; Referring Provider Advanced Practice Midwife; Visit Provider Advanced Practice Midwife
DX: O24.414 Gestational diabetes mellitus in pregnancy, insulin controlled (principal); O10.913 Unspecified pre-existing hypertension complicating pregnancy, third trimester; Z3A.33 33 weeks gestation of pregnancy; O99.213 Obesity complicating pregnancy, third trimester; B95.1 Streptococcus, group B, as the cause of diseases classified elsewhere; Z79.899 Other long term (current) drug therapy; E66.9 Obesity, unspecified
CPT/HCPCS: 82565; 82570; 82962; 84156; 84450; 84460; 84550; 85027

== ENCOUNTER 2023-10-31 17:25 | Outpatient (CLI) | payer OTHER, SELFPAY ==
[2023-10-31] VITALS (7 sets, daily range): BP systolic 135–144; BP diastolic 72–81; PULSE 89–97; RESP 15; TEMP 36.5; O2SAT 97–100; BMI 32.2
[2023-10-31 18:33] LABS: Hematocrit 33.5 % (37-47); Hemoglobin 11.2 g/dL (12.0-15.0); Mean Corp Hgb Conc 33.4 g/dL (32-36); Mean Corpuscular Hgb 28.8 pg (27.0-32.0); Mean Corpuscular Volume 86.1 fL (81-99); Mean Platelet Vol. 10.9 fl (6.2-12.0); Platelet Count 301 K/mm3 (150-450); RBC Distribution Width SD 40.6 fl (35.1-43.9); Red Blood Count 3.89 M/mm3 (4.2-5.4); White Blood Count 12.3 K/mm3 (4.4-11.0)
[2023-10-31 18:46] LABS: Protein, Urine (Random) 20.2 mg/dL (<11.9); Protein:Creat Ratio 159 mg/g CRE (0-200)
[2023-10-31 18:48] LABS: AST(SGOT) 9 U/L (15-37); Alanine Aminotransfer ALT/SGPT 17 U/L (13-56); Creatinine, Serum 0.58 mg/dL (0.55-1.02); EST Glomerular Filtration Rate 128 mL/min (>60); Est Glom Filt Rate - Afr Amer 155 mL/min (>60); Estimated Creatinine Clearance 124.66 ml/min; Uric Acid 3.4 mg/dL (2.6-6.0)
--- NOTE | 2023-10-31 22:01 | OB.TRI.HP_ITS ---
HPI - General HPI Narrative NIKKI KENT, is a 32 F who presents to l&D at 34 weeks for reported elevated blood pressures at home in the range of 150's/90's to 100. When she arrived to unit and monitored for several serial pressures, the readings were not consistent with her home blood pressure cuff and were in the average range o f 130's/70's. She denies headaches, visual changes, or RUQ pain. PIH labs were ordered. Maternal Data Information MAYA Calculator Estimated Delivery Date Method Current WG Current Estimate 12/09/23 LMP (Certain) 34w 3d PFSH PFS Medical History Alcohol use Anxiety Back pain Depression Dysmenorrhea Fatty liver Gastric reflux History of edema History of IBS History of pain when walking Hx of fracture of finger Hypertension Leg cramps Menorrhagia with regular cycle Migraines ILA (obstructive sleep apnea) PCOS (polycystic ovarian syndrome) Rectal pain Smoker Home Medications omeprazole 20 mg capsule,delayed release 40 mg PO QHS 05/25/20 [History Last Taken Unknown] aspirin 81 mg tablet,delayed release (Adult Aspirin Regimen) 81 mg PO DAILY #30 tabs 05/10/23 [Rx Last Taken Unknown] docusate sodium 100 mg capsule (Colace) 100 mg PO DAILY 05/10/23 [History Last Taken Unknown] cholecalciferol (vitamin D3) 1,250 mcg (50,000 unit) capsule 1,250 mcg PO QWEEK 08/09/23 [History Last Taken Unknown] blood sugar diagnostic (Blood Glucose Test strips) #120 ea 08/24/23 [Rx Last Taken Unknown] blood-glucose meter #1 ea 08/24/23 [Rx Last Taken Unknown] lancets #200 ea 08/24/23 [Rx Last Taken Unknown] mecobalamin (vitamin B12) 1,000 mcg chewable tablet 1,000 mcg PO DAILY 08/27/23 [History Last Taken Unknown] vits 75-iron 28 mg-folic acid 800 mcg-omega3 440 mg oral pack (One Daily ) 1 pkg PO DAILY 08/27/23 [History Last Taken Unknown] insulin NPH isoph U-100 human 100 unit/mL (3 mL) subcutaneous pen (Humulin N NPH U-100 Insulin KwikPen) 28 unit (0.28 mL) subcut QHS #15 mL 10/26/23 [Rx Last Taken Unknown] labetalol 200 mg tablet 400 mg (2 x 200 mg) PO TID 30 days #120 tabs 10/30/23 [Rx Last Taken Unknown] Allergy/AdvReac Type Severity Reaction Status Date / Time minocycline Allergy other Verified 10/30/23 13:21 acetaminophen [From Vicodin] AdvReac Nausea/Vom/ Verified 10/30/23 13:21 Diarrhea hydrocodone [From Vicodin] AdvReac Nausea/Vom/ Verified 10/30/23 13:21 Diarrhea metoclopramide [From Reglan] AdvReac Other Verified 10/30/23 13:21 promethazine [From Phenergan] AdvReac Other Verified 10/30/23 13:21 Family History Mother Hypertension Grandfather Prostate cancer Other Ovarian cancer Surgical History History of lumbar discectomy History of open reduction and internal fixation (ORIF) procedure s/p polyp removal Social History adopted: No household members: spouse and children number of children: 2 current occupational status: employed current occupation: [employer] current occupational exposures/hazards: No pets and animals: Yes pets and animals: dog(s) history of recent travel: No sexually active: Yes Smoking Status: Former smoker alcohol intake: current alcohol intake frequency: holidays/special occasions only substance use type: does not use caffeine: Yes what type of physical activity do you participate in: weight training frequency: 1-2 times per week seatbelt use: always do you feel safe at home: Yes additional social history: - [place] History 3 Elective abortions Hx Para 2 Spontaneous abortions Hx # Term Pregnancies Ectopic pregnancies Hx # Pregnancies Multiple births # of living children Past Pregnancies Del. Date Name GA/Weeks Outcome Route Bth Weight Gen Labor Lgth Anes thesia Del Locatn Provider FOB 03/01/08 Madelaine 37 live - full term 7lbs ?oz Female ep idural [facility] Dr. Ron Rainey 01/12/15 Shirley 37 live - full term 7lbs 12oz Female e pidural [facility] Dr. Joseph Koroma Delivery Date: 03/01/08 Last Updated by: Maribeth Rider Gestational hypertension Delivery Date: 01/12/15 Last Updated by: Maribeth Rider Gestational hypertension Visit Details Expected Delivery Route/Plan Labor Preferences- CB/BF classes: yes labor support person: Ga labor intervention preferences: [] pain management options preferred: limited cut cord/dad catch: yes : yes PP control planned: discussed discussed possible routes of delivery and associated risks: [] special requests: [] Plans Covid status: [] Flu vaccine: declined Tdap vaccine: given Rhogam: NA LARC form signed: yes movement and labor precautions reviewed. Problem list reviewed and updated with the most current plan of care details and appropriate orders placed. Relevant counseling for the gestational age provided. Continue routine care and follow up unless otherwise noted in visit notes/problem list details OB Flowsheet Initial Weight: 220 lb Date -?-?-?-?-?-?-?-?-?-?-?-?- EGA Weight BP Urine Prot -?-?-?-?-?-?-?-?-?-?-?-?- Glucose FHR FuHt Pres Dilation -?-?-?-?-?-?-?-?-?-?-?-?- Effaced St Visit Note 05/10/23 -?-?-?-?-?-?-?-?-?-?-?--?- 9w 4d 220 lb 6 oz (+6 oz) 137/83 -?-?-?-?-?-?-?-?-?-?-?-?- 171 -?-?-?-?-?-?-?-?-?-?-?-?- kw-CLR cons with dates. plans NIPT. kw-CLR cons with dates. plan s NIPT. start asa at 12 weeks 06/04/23 -?-?-?-?-?-?-?-?-?-?-?-?- 13w 1d 224 lb 6 oz (+4 lb 6 oz) 142/85 Negative -?-?-?-?-?-?-?-?-?-?-?-?- Negative 165 -?-?-?-?-?-?-?-?-?-?-?-?- LC- normal labs. LC- no vb/cramping. normal l abs. having increased thirst glucose 86 in office. o LC- no vb/cramping. normal l abs. having increased thirst glucose 86 in office. declines afp. 07/06/23 -?-?-?-?-?-?-?-?-?-?-?-?- 17w 5d 230 lb 2 oz (+10 lb 2 oz) 157/88 Negative -?-?-?-?-?-?-?-?-?-?-?-?- Negative 150 -?-?-?-?-?-?-?-?-?-?-?-?- SM- no vb crmapi ng updated PL, ekg ordered SM- no vb crmaping updated P L, ekg ordered desires sterilization. discussed PPTL SM- no vb crmaping updated P L, ekg ordered desires sterilization. discussed PPTL. discussed tracking bps to see if medicine needs increased. 08/01/23 -?-?-?-?-?-?-?-?-?-?-?-?- 21w 3d 237 lb (+17 lb) 152/88 Negative -?-?-?-?-?-?-?-?-?-?-?-?- Negative 153 -?-?-?-?-?-?-?-?-?-?-?-?- JV- stopping met oprolol 50 daily, and starting labetalol bid. consulting mf. 08/09/23 -?-?-?-?-?-?--?-?-?-?-?-?- 22w 4d 234 lb 8 oz (+14 lb 8 oz) 145/85 -?-?-?-?-?-?-?-?-?-?-?-?- 155 -?-?-?-?-?-?-?-?-?-?-?-?- KW- BPs now 130- 140/80s. KW- no vb/lof/ctx. good fm. BPs now 130-140/80s. Dizziness in the mornings only-encouraged taking BP when dizzy-suspect low glucose due to timing of taking medication. Will repeat CMP with 28 week labs. KW- no vb/lof/ctx. good fm. BPs now 130-140/80s. Dizziness in the mornings only-encouraged taking BP when dizzy-suspect low glucose due to timing of taking medication. Will repeat CMP with 28 week labs. P/C ratio today 08/31/23 -?-?-?-?-?-?-?-?-?-?-?-?- 25w 5d 236 lb (+16 lb) 125/72 Negative -?-?-?-?-?-?--?-?-?-?-?-?- Negative 147 -?-?-?-?-?-?-?-?-?-?-?-?- LC- no vb/ctx/lo f. good fm.all fastings over 95 to start on metformin rto in 1 week. 09/07/23 -?-?-?-?-?-?-?-?-?-?-?-?- 26w 5d 128 lb (-92 lb) 102/58 Negative -?-?-?-?-?-?-?-?-?-?-?-?- Negative 150 -?-?-?-?-?-?-?-?-?-?-?-?- LC- 1 fasting un isai 95, 3 over. metformin increased to 1000mg at night, stay at 500mg AM. no vb/ctx/lof. good fm. 09/21/23 -?-?-?-?-?-?-?-?-?-?-?-?- 28w 5d 239 lb 4 oz (+19 lb 4 oz) 128/76 Negative -?-?-?-?-?-?-?-?-?-?-?-?- Negative 145 28 -?-?-?-?-?-?-?-?-?-?-?-?- LC- fasting cont over 95- increased metformin 1000mg BID and consulted Dr. North for insulin management cw SM agrees with managemt. to have appt in 1 week with us if cant get in with to start insulin next week if no improvement on fastings. 09/27/23 -?-?-?-?-?-?-?-?-?-?-?-?- 29w 4d 239 lb 4 oz (+19 lb 4 oz) 124/82 Negative -?-?-?-?-?-?-?-?-?-?-?-?- Negative 150 30 -?-?-?-?-?-?-?-?-?-?-?-?- MH-No VB. Good F M. FBS still >95:start 10U NPH QHS. Call readings to SM 09/3010/05/23 -?-?-?-?-?-?-?-?-?-?-?-?- 30w 5d 241 lb (+21 lb) 132/83 Negative -?-?-?-?-?-?-?-?-?-?-?-?- Negative 145 33 -?-?-?-?-?-?-?-?-?-?-?-?- SM- increasing i nsulin at night getting closer to goal 10/19/23 -?-?-?-?-?-?-?-?-?-?-?-?- 32w 5d 244 lb 8 oz (+24 lb 8 oz) 134/76 Negative -?-?-?-?-?-?-?-?-?-?-?-?- Negative 140 33 -?-?-?-?-?-?-?-?-?-?-?-?- JV- fasting 96, increasing insulin 2 more units. rpt bp JV- fasting 96, increasing i nsulin 2 more units. rpt bp was much better. nst reactive. 10/26/23 -?-?-?-?-?-?-?-?-?-?-?-?- 33w 5d 249 lb (+29 lb) 137/73 -?-?-?-?-?-?-?-?-?-?-?-?- 140 -?-?-?-?-?-?-?-?-?-?-?-?- JV- no lof, vagi nal bleeding, or cramping. fasting glucose levels are now better but her 2 hrs after breakfast are higher. stopping metformin and starting twice a day NPH ROS Constitutional Constitutional: Reports systems reviewed and no addt'l complaints, except as documented Gastrointestinal Gastrointestinal: Denies bloating, constipation, cramping, diarrhea, nausea or vomiting Genitourinary Genitourinary: Reports other Details: Denies vaginal odor, vaginal bleeding, or vaginal discharge ; Denies difficulty urinating or flank pain NST FHR Rate Baby A Baseline: 140 Variability:: Moderate Accelerations:: 15 x 15 Decelerations:: None NST Reactive:: Yes FHR Category:: Category I Assessment & Plan (1) Contraception management: COMMENT: wants 6 wk pp tubal (2) Gestational diabetes mellitus (GDM) affecting , antepartum: COMMENT: 2x weekly nsts at 32, growth US q 4. deliver 38 due to chtn also. nutrition consult and testing 4x daily. 08/30 started on metformin 500mg bid. 09/06 increased to 1000mg at PM, at 500mg am. 09/20 increased to 1000mg BID, consult with Dr. North 09/26 FBS>95:start NPH 10U Qhs, call readings 09/30 and titrate up 2U QD if >95 10/26/23- pt unable to get a hold of Dr. north's office. stopping metformin and starting nph at breakfast 20 units, keep 28 units at bedtime (3) ILA (obstructive sleep apnea): (4) GBS (group B streptococcus) UTI complicating : QUALIFIERS: Trimester: third trimester Qualified Code(s): O23.43 - Unspecified infection of urinary tract in , third trimester; B95.1 - Streptococcus, group B, as the cause of diseases classified elsewhere COMMENT: Treat in labor. not high enough for ATB (5) Obesity affecting : QUALIFIERS: Trimester: third trimester COMMENT: HgbA1c ordered with NOB labs=5.4% (6) : QUALIFIERS: Weeks of gestation: 33 weeks Qualified Code(s): Z3A.33 - 33 weeks gestation of COMMENT: NIPT low risk, declined carrier and ntd screen. unremarkable anatomy, consistent dates. (7) Supervision of high risk in first trimester: COMMENT: PRR MAYA 12/09/23 boy Shirley Kate : [place] (8) Hypertension: QUALIFIERS: Hypertension type: primary hypertension Qualified Code(s): I10 - Essential (primary) hypertension COMMENT: weekly bpp at 32, weekly nst. The patient carries a history of gestational hypertension with her first 2 pregnancies and the hypertension persisted after her second . She had been treated with Bystolic / Metoprolol but her blood pressure was elevated and switched to labetalol 200 mg twice daily which was recently increased to 400 mg twice daily and her blood pressure is well-controlled at this time. (9) Abnormal Pap smear of cervix: COMMENT: ASCUS negative HPV, repeat in 3 years (10) Herniated nucleus pulposus, L4-5 left: COMMENT: unable to obtain epidural in labor. has nerve stimulator. PLAN: Plan nst reactive and bp not elevated. PIH labs normal. prot:cr was improved from yesterday plan to stop home bp monitoring with current cuff and give hospital home bp monitor. Charges/Coding Multi Select Codes Urinary/Genital Urinary/Genital CPT Codes: 33030-45 non-stress test Interp
== END 2023-10-31 19:25 | disposition home or self-care (01) ==
LOC: WPOUT 17:29 → WP 17:29
PROVIDERS: PCP Internal Medicine; Referring Provider Obstetrics & Gynecology; Visit Provider Obstetrics & Gynecology
DX: O10.913 Unspecified pre-existing hypertension complicating pregnancy, third trimester (principal); Z79.899 Other long term (current) drug therapy; Z87.891 Personal history of nicotine dependence; O24.414 Gestational diabetes mellitus in pregnancy, insulin controlled; O99.213 Obesity complicating pregnancy, third trimester; Z3A.34 34 weeks gestation of pregnancy
CPT/HCPCS: 36415; 59025; 59050; 82565; 82570; 84156; 84450; 84460; 84550; 85027; 99221; G0378

== ENCOUNTER → 2023-11-02 | Outpatient (CLI) | payer OTHER, SELFPAY ==
[2023-11-02 15:37] LABS: Absolute Lymphocyte Count 3.71 X10^3/uL (0.83-4.51); Absolute Neutrophil Count 8.3 X10^3/uL (2.0-7.7); Basophil# 0.04 X10^3/uL; Basophil% 0.3 % (0-1); Eosinophil# 0.09 X10^3/uL; Eosinophils% 0.7 % (0-5); Hematocrit 34.5 % (37-47); Hemoglobin 11.3 g/dL (12.0-15.0); Lymphocyte # 3.71 X10^3/ul (0.83-4.51); Lymphocyte % 28.3 % (19-41); Mean Corp Hgb Conc 32.8 g/dL (32-36); Mean Corpuscular Hgb 28.3 pg (27.0-32.0); Mean Corpuscular Volume 86.5 fL (81-99); Mean Platelet Vol. 11.3 fl (6.2-12.0); Monocyte# 0.86 X10^3/uL; Monocyte% 6.6 % (0-10); NRBC Flagged by Analyzer 0 % (0-5); Neutrophil # 8.31 X10^3/uL (2.7-7.7); Neutrophil % 63.5 % (47-70); Platelet Count 315 K/mm3 (150-450); RBC Distribution Width CV 13.1 % (11.6-14.6); RBC Distribution Width SD 40.8 fl (35.1-43.9); Red Blood Count 3.99 M/mm3 (4.2-5.4); White Blood Count 13.1 K/mm3 (4.4-11.0)
[2023-11-02 16:15] LABS: ALB/GLOB Ratio 0.5 RATIO (0.9-2.4); AST(SGOT) 11 U/L (15-37); Alanine Aminotransfer ALT/SGPT 10 U/L (13-56); Albumin, Serum 2.3 g/dL (3.2-5.0); Alkaline Phosphatase 92 U/L (45-117); Anion Gap 7 (5-15); BUN 11 mg/dL (7-18); BUN/Creat Ratio 15.5 RATIO (10-20); Calcium,Total 9.6 mg/dL (8.5-10.1); Chloride 105 mmol/L (98-107); Creatinine, Serum 0.71 mg/dL (0.55-1.02); EST Glomerular Filtration Rate 101 mL/min (>60); Est Glom Filt Rate - Afr Amer 122 mL/min (>60); Globulin 4.5 g/dL (2.2-4.2); Glucose 126 mg/dL (74-106); Protein, Total 6.8 g/dL (6.4-8.2); Sodium Level 135 mmol/L (136-145); Uric Acid 3.7 mg/dL (2.6-6.0)
[2023-11-02 16:26] LABS: Protein, Urine (Random) 15.5 mg/dL (<11.9); Protein:Creat Ratio 201 mg/g CRE (0-200)
== END | disposition home or self-care (01) ==
LOC: LAB 14:35
PROVIDERS: PCP Internal Medicine; Referring Provider Advanced Practice Midwife; Visit Provider Advanced Practice Midwife
DX: I10 Essential (primary) hypertension (principal)
CPT/HCPCS: 36415; 80053; 82570; 84156; 84550; 85025

== ENCOUNTER → 2023-11-05 | Outpatient (CLI) | payer OTHER, SELFPAY ==
--- NOTE | 2023-11-05 12:22 | US_ITS ---
STUDY: OBSTETRICAL ULTRASOUND - BIOPHYSICAL PROFILE REASON FOR EXAM: Female, 32 years old hypertension LMP: March 04, 2023. PRIOR ULTRASOUND: Comparison is made with prior study October 29, 2023. TECHNIQUE: Transabdominal TECHNICAL QUALITY: Adequate. FINDINGS: There is a single intrauterine fetus. The fetus is in a cephalic presentation. There is demonstrated cardiac activity with a heart rate of 150 bpm. There is a normal amniotic fluid volume. The largest amniotic fluid pocket measures 9.9 cm. The amniotic fluid index (THOMAS) is 24 cm. The placenta is posterior and right lateral in location and is not low lying. There are Grade 3 placental changes. Age by LMP: 35 weeks, 1 days. MAYA by LMP: December 09, 2023. age by prior US: 38 weeks, 2 days. MAYA by prior US: November 17, 2023. BIOPHYSICAL PROFILE: Breathing Movements (FBM): 2 Gross Body Movements (GBM): 2 Tone (FT): 2 Amniotic Fluid Volume (AFV): 2 TOTAL SCORE: 8 / 8 US/Biophysical Prof W/O Non Stres IMPRESSION: Normal biophysical profile of 8/8. Electronically Signed: Fredy Short MD at 13:48 EDT ,
== END | disposition home or self-care (01) ==
LOC: OPUS 12:19
PROVIDERS: PCP Internal Medicine; Referring Provider Obstetrics & Gynecology; Visit Provider Obstetrics & Gynecology
DX: O16.3 Unspecified maternal hypertension, third trimester (principal); O24.419 Gestational diabetes mellitus in pregnancy, unspecified control; Z3A.35 35 weeks gestation of pregnancy
CPT/HCPCS: 76819

== ENCOUNTER → 2023-11-07 | Outpatient (CLI) | payer OTHER, SELFPAY ==
--- NOTE | 2023-11-07 13:32 | US_ITS ---
STUDY: SECOND AND THIRD TRIMESTER OBSTETRICAL ULTRASOUND - LIMITED REASON FOR EXAM: Female, 32 years old growth LMP: 03/04/2023 PRIOR ULTRASOUND: None. TECHNIQUE: Transabdominal TECHNICAL QUALITY: Adequate. FINDINGS: There is a single intrauterine fetus. The fetus is in a breech presentation. There is demonstrated cardiac activity with a heart rate of 145 bpm. There is a normal amniotic fluid volume. The largest amniotic fluid pocket measures 6.4 cm. The amniotic fluid index (THOMAS) is 18.2 cm. The placenta is posterior in location and is not low lying. There are Grade 3 placental changes. The cervix is grossly closed although not adequately seen to measure. BIOMETRY: BPD: 9.5: 38 weeks, 4 days HC: 33.7: 38 weeks, 4 days AC: 34.2: 38 weeks, 1 days FL: 6.5: 33 weeks, 5 days Age by LMP: 37 weeks, 3 days. MAYA by LMP: 11/25/2023. age by prior US: weeks, days. MAYA by prior US: . age by current US: 35 weeks, 3 days. MAYA by current US: 12/09/2023. Estimated weight: 3149 grams, +/- 472 grams, 90 percentile. Gender: US/OB Limited With Biometrics IMPRESSION: Single live fetus in a breech presentation. survey not performed on this exam. Placenta is grade 3 and is not low-lying. Cervix is closed. age by current US: 35 weeks, 3 days. MAYA by current US: 12/09/2023. Estimated weight: 3149 grams, +/- 472 grams, 90 percentile. Electronically Signed: Armand Evangelista MD at 23:01 EDT ,
== END | disposition home or self-care (01) ==
LOC: OPUS 13:25
PROVIDERS: PCP Internal Medicine; Referring Provider Obstetrics & Gynecology; Visit Provider Obstetrics & Gynecology
DX: O24.419 Gestational diabetes mellitus in pregnancy, unspecified control (principal); Z3A.00 Weeks of gestation of pregnancy not specified
CPT/HCPCS: 76816

== ENCOUNTER → 2023-11-12 | Outpatient (CLI) | payer OTHER, SELFPAY ==
--- NOTE | 2023-11-12 12:32 | US_ITS ---
INDICATION: hypertension and GDM EXAMINATION: Ultrasound US Biophysical Profile W/O Nonst TECHNIQUE: Transabdominal pelvic ultrasound was performed. COMPARISON: Prior study dated: 11/05/2023 LMP: Unknown. Beta-hCG: Unknown. Provided EGA: None. FINDINGS: INTRAUTERINE GESTATION(s): Single. HEART MOTION is 140 bpm. AMNIOTIC FLUID INDEX (THOMAS): 21.9 cm BIOPHYSICAL PROFILE (BPP): 02/06 -- Breathin/2. -- Movement: 2/2. -- Tone: 2/2. --THOMAS: 2/2. PRESENTATION: Cephalic PLACENTA: Posterior. There is no placenta previa or abruption. There appears to be accessory placenta anterior. CERVIX: The cervix is closed. MATERNAL OVARIES: No adnexal masses. FREE FLUID: None. US/Biophysical Prof W/O Non Stres IMPRESSION: Normal biophysical profile with score of 8 out of 8 Electronically Signed: Boom Meek MD at 15:22 EDT ,
[2023-11-12 13:41] LABS: Absolute Lymphocyte Count 4.03 X10^3/uL (0.83-4.51); Absolute Neutrophil Count 7.2 X10^3/uL (2.0-7.7); Basophil# 0.05 X10^3/uL; Basophil% 0.4 % (0-1); Eosinophil# 0.08 X10^3/uL; Eosinophils% 0.7 % (0-5); Hematocrit 34.8 % (37-47); Hemoglobin 11.2 g/dL (12.0-15.0); Lymphocyte # 4.03 X10^3/ul (0.83-4.51); Lymphocyte % 33.1 % (19-41); Mean Corp Hgb Conc 32.2 g/dL (32-36); Mean Corpuscular Hgb 27.9 pg (27.0-32.0); Mean Corpuscular Volume 86.6 fL (81-99); Mean Platelet Vol. 11.3 fl (6.2-12.0); Monocyte# 0.77 X10^3/uL; Monocyte% 6.3 % (0-10); NRBC Flagged by Analyzer 0 % (0-5); Neutrophil # 7.17 X10^3/uL (2.7-7.7); Neutrophil % 58.8 % (47-70); Platelet Count 311 K/mm3 (150-450); RBC Distribution Width CV 13.1 % (11.6-14.6); RBC Distribution Width SD 40.8 fl (35.1-43.9); Red Blood Count 4.02 M/mm3 (4.2-5.4); White Blood Count 12.2 K/mm3 (4.4-11.0)
[2023-11-12 13:59] LABS: Protein, Urine (Random) 24.6 mg/dL (<11.9); Protein:Creat Ratio 316 mg/g CRE (0-200)
[2023-11-12 14:19] LABS: ALB/GLOB Ratio 0.5 RATIO (0.9-2.4); AST(SGOT) 13 U/L (15-37); Alanine Aminotransfer ALT/SGPT 13 U/L (13-56); Albumin, Serum 2.3 g/dL (3.2-5.0); Alkaline Phosphatase 98 U/L (45-117); Anion Gap 6 (5-15); BUN 10 mg/dL (7-18); BUN/Creat Ratio 16.1 RATIO (10-20); Calcium,Total 8.9 mg/dL (8.5-10.1); Chloride 106 mmol/L (98-107); Creatinine, Serum 0.62 mg/dL (0.55-1.02); EST Glomerular Filtration Rate 117 mL/min (>60); Est Glom Filt Rate - Afr Amer 142 mL/min (>60); Globulin 4.5 g/dL (2.2-4.2); Glucose 83 mg/dL (74-106); Potassium 4.2 mmol/L (3.5-5.1); Protein, Total 6.8 g/dL (6.4-8.2); Sodium Level 135 mmol/L (136-145)
== END | disposition home or self-care (01) ==
PROVIDERS: Obstetrics & Gynecology; PCP Internal Medicine; Referring Provider Obstetrics & Gynecology; Visit Provider Obstetrics & Gynecology
DX: O24.419 Gestational diabetes mellitus in pregnancy, unspecified control (principal); Z3A.00 Weeks of gestation of pregnancy not specified; O16.9 Unspecified maternal hypertension, unspecified trimester
CPT/HCPCS: 36415; 76819; 80053; 82570; 84156; 85025

== ENCOUNTER 2023-11-14 11:05 | Outpatient (CLI) | payer OTHER, SELFPAY ==
[2023-11-14 11:19] VITALS: BP 137/69; PULSE 90
[2023-11-14 11:20] VITALS: BMI 41.5
[2023-11-14 11:29] VITALS: RESP 16; TEMP 36.4
[2023-11-14 11:37] VITALS: BP 130/73; PULSE 88
[2023-11-14 11:47] LABS: Hematocrit 33.1 % (37-47); Hemoglobin 10.7 g/dL (12.0-15.0); Mean Corp Hgb Conc 32.3 g/dL (32-36); Mean Corpuscular Hgb 27.7 pg (27.0-32.0); Mean Corpuscular Volume 85.8 fL (81-99); Mean Platelet Vol. 11.1 fl (6.2-12.0); Platelet Count 290 K/mm3 (150-450); RBC Distribution Width CV 13.1 % (11.6-14.6); RBC Distribution Width SD 40.3 fl (35.1-43.9); Red Blood Count 3.86 M/mm3 (4.2-5.4)
[2023-11-14 11:50] VITALS: BP 131/72; PULSE 90
[2023-11-14 12:01] LABS: AST(SGOT) 13 U/L (15-37); Alanine Aminotransfer ALT/SGPT 12 U/L (13-56); Creatinine, Serum 0.58 mg/dL (0.55-1.02); EST Glomerular Filtration Rate 127 mL/min (>60); Est Glom Filt Rate - Afr Amer 154 mL/min (>60); Estimated Creatinine Clearance 173.28 ml/min; Uric Acid 4.4 mg/dL (2.6-6.0)
[2023-11-14 12:05] VITALS: BP 141/74; PULSE 85
[2023-11-14 12:06] LABS: Protein, Urine (Random) 26.3 mg/dL (<11.9); Protein:Creat Ratio 295 mg/g CRE (0-200)
--- NOTE | 2023-11-16 07:49 | OB.TRI.HP_ITS ---
HPI - General General Date of Admission: 11/14/23 HPI Narrative NIKKI KENT, is a 32 F who presents to L&D stating I am just so tired of being She initally told us on the phone in the office that she was vomiting. She denies loss of fluid, vaginal bleeding, dec fm, headache, nausea of vomiting. BP's are in normal range. She has a planned IOL this weekend for chronic hypertension on labetalol with superimposed pre-e. Maternal Data Information MAYA Calculator Estimated Delivery Date Method Current WG Current Estimate 12/09/23 LMP (Certain) 36w 5d PFSH PFSH Medical History Alcohol use Anxiety Back pain Depression Dysmenorrhea Fatty liver Gastric reflux History of edema History of IBS History of pain when walking Hx of fracture of finger Hypertension Leg cramps Menorrhagia with regular cycle Migraines ILA (obstructive sleep apnea) PCOS (polycystic ovarian syndrome) Rectal pain Smoker Home Medications ?Medication ?Instructions ?Recorded ?Last Taken ?Type omeprazole 20 mg capsule,delayed 40 mg PO QHS 05/25/20 11/12/23 22:00 History release 20 mg aspirin 81 mg tablet,delayed 81 mg PO DAILY #30 tabs 05/10/23 11/13/23 21:00 Rx release (Adult Aspirin Regimen) 81 mg docusate sodium 100 mg capsule 100 mg PO DAILY 05/10/23 10/28/23 21:00 History (Colace) 100 mg cholecalciferol (vitamin D3) 1,250 1,250 mcg PO QWEEK 08/09/23 11/09/23 07:00 History mcg (50,000 unit) capsule 1,250 mcg blood sugar diagnostic (Blood #120 ea 08/24/23 Unknown Rx Glucose Test strips) blood-glucose meter #1 ea 08/24/23 Unknown Rx lancets #200 ea 08/24/23 Unknown Rx mecobalamin (vitamin B12) 1,000 1,000 mcg PO DAILY 08/27/23 11/14/23 07:00 History mcg chewable tablet 1,000 mcg vits 75-iron 28 mg-folic 1 pkg PO DAILY 08/27/23 11/13/23 22:00 History acid 800 mcg-omega3 440 mg oral 1 pkg pack (One Daily ) labetalol 200 mg tablet 400 mg (2 x 200 mg) PO TID 30 days 10/30/23 11/14/23 07:00 Rx #120 tabs 400 mg insulin regular human 100 unit/mL 10 unit (0.1 mL) subcut .breakfast 11/02/23 Unknown Rx injection solution #10 mL sertraline 50 mg tablet 50 mg PO DAILY 11/09/23 11/13/23 22:00 History 50 mg insulin NPH isoph U-100 human 100 30 unit subcut QHS 11/14/23 11/13/23 22:00 History unit/mL (3 mL) subcutaneous pen 30 units (Humulin N NPH U-100 Insulin KwikPen) Allergy/AdvReac Type Severity Reaction Status Date / Time minocycline Allergy other Verified 11/14/23 10:37 acetaminophen (From Vicodin) AdvReac Nausea/Vom/ Verified 11/14/23 10:37 Diarrhea hydrocodone (From Vicodin) AdvReac Nausea/Vom/ Verified 11/14/23 10:37 Diarrhea metoclopramide (From Reglan) AdvReac Other Verified 11/14/23 10:37 promethazine (From Phenergan) AdvReac Other Verified 11/14/23 10:37 Family History Mother Hypertension Grandfather Prostate cancer Other Ovarian cancer Surgical History History of lumbar discectomy History of open reduction and internal fixation (ORIF) procedure s/p polyp removal Social History adopted: No household members: spouse and children number of children: 2 current occupational status: employed current occupation: [employer] current occupational exposures/hazards: No pets and animals: Yes pets and animals: dog(s) history of recent travel: No sexually active: Yes Smoking Status: Former smoker alcohol intake: current alcohol intake frequency: holidays/special occasions only substance use type: does not use caffeine: Yes what type of physical activity do you participate in: weight training frequency: 1-2 times per week seatbelt use: always do you feel safe at home: Yes additional social history: - [place] History 3 Elective abortions Hx Para 2 Spontaneous abortions Hx # Term Pregnancies Ectopic pregnancies Hx # Pregnancies Multiple births # of living children Past Pregnancies Del. Date Name GA/Weeks Outcome Route Bth Weight Infant Gen Labor Lgth Anesthesia Del Locatn Provider FOB 03/01/08 Madelaine 37 live - full term 7lbs ?oz Female ep idural [facility] Dr. Ron Rainey 01/12/15 Shirley 37 live - full term 7lbs 12oz Female e pidural [facility] Dr. Joseph Koroma Delivery Date: 03/01/08 Last Updated by: Maribeth Rider Gestational hypertension Delivery Date: 01/12/15 Last Updated by: Maribeth Rider Gestational hypertension Visit Details Expected Delivery Route/Plan Labor Preferences- CB/BF classes: yes labor support person: Ga labor intervention preferences: [] pain management options preferred: limited cut cord/dad catch: yes : yes PP control planned: discussed discussed possible routes of delivery and associated risks: [] special requests: [] Plans Covid status: [] Flu vaccine: declined Tdap vaccine: given Rhogam: NA LARC form signed: yes movement and labor precautions reviewed. Problem list reviewed and updated with the most current plan of care details and appropriate orders placed. Relevant counseling for the gestational age provided. Continue routine care and follow up unless otherwise noted in visit notes/problem list details OB Flowsheet Initial Weight: 220 lb Date -?-?-?-?-?-?-?-?-?-?-?-?- EGA Weight BP Urine Prot -?-?-?-?-?-?-?-?-?-?-?-?- Glucose FHR FuHt Pres Dilation -?-?--?-?-?-?-?-?-?-?-?-?- Effaced St Visit Note 05/10/23 -?-?-?-?-?-?-?-?-?-?-?-?- 9w 4d 220 lb 6 oz (+6 oz) 137/83 -?-?-?-?-?-?-?-?-?-?-?-?- 171 -?-?-?-?-?-?-?-?-?-?-?-?- kw-CLR cons with dates. plans NIPT. kw-CLR cons with dates. plan s NIPT. start asa at 12 weeks 06/04/23 -?-?-?-?-?-?-?-?-?-?-?-?- 13w 1d 224 lb 6 oz (+4 lb 6 oz) 142/85 Negative -?-?-?-?-?--?-?-?-?-?-?-?- Negative 165 -?-?-?-?-?-?-?-?-?-?-?-?- LC- normal labs. LC- no vb/cramping. normal l abs. having increased thirst glucose 86 in office. o LC- no vb/cramping. normal l abs. having increased thirst glucose 86 in office. declines afp. 07/06/23 -?-?-?-?-?-?-?-?-?-?-?-?- 17w 5d 230 lb 2 oz (+10 lb 2 oz) 157/88 Negative -?-?-?-?-?-?-?-?-?-?-?-?- Negative 150 -?-?-?-?-?-?-?-?-?-?-?-?- SM- no vb crmapi ng updated PL, ekg ordered SM- no vb crmaping updated P L, ekg ordered desires sterilization. discussed PPTL SM- no vb crmaping updated P L, ekg ordered desires sterilization. discussed PPTL. discussed tracking bps to see if medicine needs increased. 08/01/23 -?-?-?-?-?-?-?-?-?-?-?-?- 21w 3d 237 lb (+17 lb) 152/88 Negative -?-?-?-?-?-?-?-?-?-?-?-?- Negative 153 -?-?-?-?-?-?-?-?-?-?-?-?- JV- stopping met oprolol 50 daily, and starting labetalol bid. consulting mfm. 08/09/23 -?-?-?-?-?-?-?-?-?-?-?-?- 22w 4d 234 lb 8 oz (+14 lb 8 oz) 145/85 -?-?-?-?-?-?-?-?-?-?-?-?- 155 -?-?-?-?-?-?-?-?-?-?-?-?- KW- BPs now 130- 140/80s. KW- no vb/lof/ctx. good fm. BPs now 130-140/80s. Dizziness in the mornings only-encouraged taking BP when dizzy-suspect low glucose due to timing of taking medication. Will repeat CMP with 28 week labs. KW- no vb/lof/ctx. good fm. BPs now 130-140/80s. Dizziness in the mornings only-encouraged taking BP when dizzy-suspect low glucose due to timing of taking medication. Will repeat CMP with 28 week labs. P/C ratio today 08/31/23 -?-?-?-?-?-?-?-?-?-?-?-?- 25w 5d 236 lb (+16 lb) 125/72 Negative -?-?-?-?-?-?-?-?-?-?-?-?- Negative 147 -?-?-?-?-?-?-?-?-?-?-?-?- LC- no vb/ctx/lo f. good fm.all fastings over 95 to start on metformin rto in 1 week. 09/07/23 -?-?-?-?-?-?-?-?-?-?-?-?- 26w 5d 128 lb (-92 lb) 102/58 Negative -?-?-?-?-?-?-?-?-?-?-?-?- Negative 150 -?-?-?-?-?-?-?-?-?-?-?-?- LC- 1 fasting un isai 95, 3 over. metformin increased to 1000mg at night, stay at 500mg AM. no vb/ctx/lof. good fm. 09/21/23 -?-?-?-?-?-?-?-?-?-?-?-?- 28w 5d 239 lb 4 oz (+19 lb 4 oz) 128/76 Negative -?-?-?-?-?-?-?-?-?-?-?-?- Negative 145 28 -?-?-?-?-?-?-?-?-?-?-?-?- LC- fasting cont over 95- increased metformin 1000mg BID and consulted Dr. North for insulin management cw agrees with managemt. to have appt in 1 week with us if cant get in with to start insulin next week if no improvement on fastings. 09/27/23 -?-?-?-?-?-?-?-?-?-?-?-?- 29w 4d 239 lb 4 oz (+19 lb 4 oz) 124/82 Negative -?-?-?-?-?-?-?-?-?-?-?-?- Negative 150 30 -?-?-?-?-?-?-?-?-?-?-?-?- MH-No VB. Unruly Lopes. FBS still >95:start 10U NPH QHS. Call readings to 09/3010/05/23 -?-?-?-?-?-?-?-?-?-?-?-?- 30w 5d 241 lb (+21 lb) 132/83 Negative -?-?-?-?-?-?-?-?-?-?-?-?- Negative 145 33 -?-?-?-?-?-?-?-?-?-?-?-?- - increasing i nsulin at night getting closer to goal 10/19/23 -?-?-?-?-?-?-?-?-?-?-?-?- 32w 5d 244 lb 8 oz (+24 lb 8 oz) 134/76 Negative -?-?-?-?-?-?-?-?-?-?-?-?- Negative 140 33 -?-?-?-?-?-?-?-?-?-?-?-?- JV- fasting 96, increasing insulin 2 more units. rpt bp JV- fasting 96, increasing i nsulin 2 more units. rpt bp was much better. nst reactive. 10/26/23 -?-?-?-?-?-?-?-?-?-?-?-?- 33w 5d 249 lb (+29 lb) 137/73 -?-?-?-?-?-?-?-?-?-?-?-?- 140 -?-?-?-?-?-?-?-?-?-?-?-?- JV- no lof, vagi nal bleeding, or cramping. fasting glucose levels are now better but her 2 hrs after breakfast are higher. stopping metformin and starting twice a day NPH 11/02/23 -?-?-?-?-?-?-?-?-?-?-?-?- 34w 5d 247 lb 4 oz (+27 lb 4 oz) 146/86 144/88 Negative -?-?-?-?-?-?-?-?-?-?-?-?- Negative 140 35 -?-?-?-?-?-?-?-?-?-?-?-?- KW- no vb/lof/ct x. good fm. 20 units in AM and 28 units in PM. Discussed with SM and JV for dosing. Starting Regular insulin in the AM. Growth US on 11/06. PIH labs today per pt request 11/09/23 -?-?-?-?-?-?-?-?-?-?-?-?- 35w 5d 250 lb (+30 lb) 144/82 Negative -?-?-?-?-?-?--?-?-?-?-?-?- Negative 135 38 -?-?-?-?-?-?-?-?-?-?-?-?- KW- no vb/lof/ct x. good fm. blood sugars better controlled after adding regular insulin. home bps range 140/90-150/100. IOL discussed and scheduled KW- no vb/lof/ctx. good fm. blood sugars better controlled after adding regular insulin. home bps range 140/90-150/100. IOL discussed and scheduled. Will plan for cytotec but needs VE next visit with GBS to confirm ROS Constitutional Constitutional: Reports systems reviewed and no addt'l complaints, except as documented Gastrointestinal Gastrointestinal: Denies bloating, constipation, cramping, diarrhea, nausea or vomiting Genitourinary Genitourinary: Reports other Details: Denies vaginal odor, vaginal bleeding, or vaginal discharge ; Denies difficulty urinating or flank pain NST FHR Rate Baby A Baseline: 130 Variability:: Moderate Accelerations:: 15 x 15 Decelerations:: None NST Reactive:: Yes FHR Category:: Category I Assessment & Plan (1) Gestational diabetes mellitus (GDM) affecting , antepartum: COMMENT: 2x weekly nsts at 32, growth US q 4. deliver 38 due to chtn also. nutrition consult and testing 4x daily. 08/30 started on metformin 500mg bid. 09/06 increased to 1000mg at PM, at 500mg am. 09/20 increased to 1000mg BID, consult with Dr. North 09/26 FBS>95:start NPH 10U Qhs, call readings 09/30 and titrate up 2U QD if >95 10/26/23- pt unable to get a hold of Dr. north's office. stopping metformin and starting nph at breakfast 20 units, keep 28 units at bedtime (2) ILA (obstructive sleep apnea): (3) GBS (group B streptococcus) UTI complicating : QUALIFIERS: Trimester: third trimester Qualified Code(s): O23.43 - Unspecified infection of urinary tract in , third trimester; B95.1 - Streptococcus, group B, as the cause of diseases classified elsewhere COMMENT: Treat in labor. not high enough for ATB (4) Obesity affecting : QUALIFIERS: Trimester: third trimester COMMENT: HgbA1c ordered with NOB labs=5.4% (5) : QUALIFIERS: Weeks of gestation: 35 weeks Qualified Code(s): Z3A.35 - 35 weeks gestation of COMMENT: NIPT low risk, declined carrier and ntd screen. unremarkable anatomy, consistent dates. (6) Supervision of high risk in first trimester: COMMENT: PRR MAYA 12/09/23 boy Shilrey Kate : [place] (7) Hypertension: QUALIFIERS: Hypertension type: primary hypertension Qualified Code(s): I10 - Essential (primary) hypertension COMMENT: weekly bpp at 32, weekly nst. The patient carries a history of gestational hypertension with her first 2 pregnancies and the hypertension persisted after her second . She had been treated with Bystolic / Metoprolol but her blood pressure was elevated and switched to labetalol 200 mg twice daily which was recently increased to 400 mg twice daily and her blood pressure is well-controlled at this time. (8) Abnormal Pap smear of cervix: COMMENT: ASCUS negative HPV, repeat in 3 years (9) Herniated nucleus pulposus, L4-5 left: COMMENT: unable to obtain epidural in labor. has nerve stimulator. (10) Anxiety: COMMENT: Changed from Fluoxeine to zoloft 50mg. Stable (11) Mild pre-eclampsia: COMMENT: IOL planned for 37 weeks PLAN: Plan bp's are normal Reacdtive NST. DC to home Charges/Coding Multi Select Codes Urinary/Genital Urinary/Genital CPT Codes: 76758-76 non-stress test Interp
== END 2023-11-14 12:10 | disposition home or self-care (01) ==
LOC: WPOUT 11:12 → WP 11:12
PROVIDERS: PCP Internal Medicine; Referring Provider Obstetrics & Gynecology; Visit Provider Obstetrics & Gynecology
DX: O24.414 Gestational diabetes mellitus in pregnancy, insulin controlled (principal); O11.3 Pre-existing hypertension with pre-eclampsia, third trimester; O99.613 Diseases of the digestive system complicating pregnancy, third trimester; K21.9 Gastro-esophageal reflux disease without esophagitis; Z79.82 Long term (current) use of aspirin; Z79.899 Other long term (current) drug therapy; Z87.891 Personal history of nicotine dependence; O99.213 Obesity complicating pregnancy, third trimester; Z3A.35 35 weeks gestation of pregnancy; O99.343 Other mental disorders complicating pregnancy, third trimester; F41.9 Anxiety disorder, unspecified; O21.9 Vomiting of pregnancy, unspecified; O10.013 Pre-existing essential hypertension complicating pregnancy, third trimester
CPT/HCPCS: 36415; 59025; 59050; 82565; 82570; 84156; 84450; 84460; 84550; 85027; 99221; G0378

== ENCOUNTER → 2023-11-16 | Outpatient (CLI) | payer OTHER, SELFPAY ==
[2023-11-16 17:53] LABS: Protein, Urine (Random) 18.3 mg/dL (<11.9); Protein:Creat Ratio 219 mg/g CRE (0-200)
== END | disposition home or self-care (01) ==
LOC: LABSPEC 17:01
PROVIDERS: PCP Internal Medicine; Referring Provider Obstetrics & Gynecology; Visit Provider Obstetrics & Gynecology
DX: I10 Essential (primary) hypertension (principal)
CPT/HCPCS: 82570; 84156

== ENCOUNTER 2023-11-18 12:25 | Inpatient (IN) | payer OTHER, SELFPAY ==
[2023-11-18] VITALS (73 sets, daily range): BP systolic 119–174; BP diastolic 59–94; PULSE 84–114; RESP 14–18; TEMP 36.1–37; O2SAT 95–99; BMI 41.8
[2023-11-18] MEDS: Lactated Ringers 1,000 ML 15 ML IV (12:45)
[2023-11-18 13:06] LABS: Absolute Lymphocyte Count 3.52 X10^3/uL (0.83-4.51); Absolute Neutrophil Count 7.9 X10^3/uL (2.0-7.7); Basophil# 0.05 X10^3/uL; Basophil% 0.4 % (0-1); Eosinophil# 0.08 X10^3/uL; Eosinophils% 0.6 % (0-5); Hematocrit 36.3 % (37-47); Hemoglobin 11.7 g/dL (12.0-15.0); Lymphocyte # 3.52 X10^3/ul (0.83-4.51); Lymphocyte % 28.2 % (19-41); Mean Corp Hgb Conc 32.2 g/dL (32-36); Mean Corpuscular Hgb 27.9 pg (27.0-32.0); Mean Corpuscular Volume 86.4 fL (81-99); Mean Platelet Vol. 11.4 fl (6.2-12.0); Monocyte# 0.85 X10^3/uL; Monocyte% 6.8 % (0-10); NRBC Flagged by Analyzer 0 % (0-5); Neutrophil # 7.85 X10^3/uL (2.7-7.7); Platelet Count 299 K/mm3 (150-450); RBC Distribution Width CV 13.2 % (11.6-14.6); RBC Distribution Width SD 40.9 fl (35.1-43.9); White Blood Count 12.5 K/mm3 (4.4-11.0)
[2023-11-18] MEDS: 0.9% Saline Lock 10 ML Syringe IV (13:07)
[2023-11-18] MEDS: hydrALAZINE 20 MG/ML Vial 5 MG IV (13:07)
[2023-11-18] MEDS: Magnesium Sulfate 4gm/100mL 4 GM/100 ML IV.SOLN. IV (13:10)
[2023-11-18 13:20] LABS: AST(SGOT) 11 U/L (15-37); Alanine Aminotransfer ALT/SGPT 13 U/L (13-56); Creatinine, Serum 0.59 mg/dL (0.55-1.02); EST Glomerular Filtration Rate 125 mL/min (>60); Est Glom Filt Rate - Afr Amer 151 mL/min (>60); Estimated Creatinine Clearance 170.92 ml/min; Uric Acid 3.7 mg/dL (2.6-6.0)
[2023-11-18 13:20] LABS: Bedside Glucose 105 mg/dL (74-106)
[2023-11-18] MEDS: Magnesium Sulfate 20 GM/500 ML BAG IV ×2 (13:29→22:52)
[2023-11-18] MEDS: Penicillin G Pot 5,000,000 UNITS in 0.9% Normal Saline (100mL MB+) 100 ML 150 UNITS IV (13:29)
[2023-11-18] MEDS: hydrALAZINE 20 MG/ML Vial 10 MG IV (13:30)
[2023-11-18 13:32] LABS: Protein, Urine (Random) 18.2 mg/dL (<11.9); Protein:Creat Ratio 269 mg/g CRE (0-200)
[2023-11-18 13:40] LABS: Syphilis Antibodies Non-reactive
[2023-11-18] MEDS: hydrALAZINE 10 MG Tablet 20 MG PO ×2 (14:10→21:42)
[2023-11-18] MEDS: Labetalol 200 MG Tablet 400 MG PO ×2 (14:11→21:43)
[2023-11-18 14:25] LABS: Bedside Glucose 79 mg/dL (74-106)
[2023-11-18] MEDS: miSOPROStol 25 MCG TABLET VAGINAL (15:09)
[2023-11-18] MEDS: Penicillin G 3,000,000 Units 50 ML 100 UNITS IV ×2 (18:03→21:42)
[2023-11-18 18:28] LABS: Bedside Glucose 97 mg/dL (74-106)
[2023-11-18] MEDS: Acetaminophen 500 MG Tablet PO (18:43)
--- NOTE | 2023-11-18 19:33 | HP.PCM.OB_ITS ---
HPI - General General Date of Admission: 11/18/23 HPI Narrative NIKKI KENT, is a 32 F who presents for IOL secondary to chtn with superimposed severe preeclampsia with elevated pressures in te severe range. she has also had uncontrolled diabetes on insulin. she dneies any JUAREZ BV denies any bleeding or lof Maternal Data Information MAYA Calculator Estimated Delivery Date Method Current WG Current Estimate 12/09/23 LMP (Certain) 37w 0d PFSH PFSH Medical History (Updated 11/18/23 @ 19:[address] Latasha Joshua MD) Family history of hearing loss at age younger than 7 years Pre-eclampsia Chronic hypertension Gestational diabetes ILA (obstructive sleep apnea) Menorrhagia with regular cycle Dysmenorrhea Rectal pain Depression Anxiety Alcohol use Fatty liver Back pain History of IBS Gastric reflux Smoker Leg cramps History of pain when walking History of edema Hypertension Hx of fracture of finger Migraines PCOS (polycystic ovarian syndrome) Home Medications ?Medication ?Instructions ?Recorded ?Last Taken ?Type omeprazole 20 mg capsule,delayed 40 mg PO QHS 05/25/20 11/12/23 22:00 History release 20 mg aspirin 81 mg tablet,delayed 81 mg PO DAILY #30 tabs 05/10/23 11/13/23 21:00 Rx release (Adult Aspirin Regimen) 81 mg docusate sodium 100 mg capsule 100 mg PO DAILY 05/10/23 10/28/23 21:00 History (Colace) 100 mg cholecalciferol (vitamin D3) 1,250 1,250 mcg PO QWEEK 08/09/23 11/09/23 07:00 History mcg (50,000 unit) capsule 1,250 mcg blood sugar diagnostic (Blood #120 ea 08/24/23 Unknown Rx Glucose Test strips) blood-glucose meter #1 ea 08/24/23 Unknown Rx lancets #200 ea 08/24/23 Unknown Rx mecobalamin (vitamin B12) 1,000 1,000 mcg PO DAILY 08/27/23 11/14/23 07:00 History mcg chewable tablet 1,000 mcg vits 75-iron 28 mg-folic 1 pkg PO DAILY 08/27/23 11/13/23 22:00 History acid 800 mcg-omega3 440 mg oral 1 pkg pack (One Daily ) labetalol 200 mg tablet 400 mg (2 x 200 mg) PO TID 10/30/23 11/18/23 Rx hypertensio 30 days #120 tabs sertraline 50 mg tablet 50 mg PO DAILY 11/09/23 11/13/23 22:00 History 50 mg insulin NPH isoph U-100 human 100 30 unit subcut QHS 11/14/23 11/18/23 History unit/mL (3 mL) subcutaneous pen (Humulin N NPH U-100 Insulin KwikPen) insulin regular human 100 unit/mL 20 unit subcut .breakfast GDM 11/18/23 Unknown History injection solution Allergy/AdvReac Type Severity Reaction Status Date / Time minocycline Allergy other Verified 11/18/23 11:42 hydrocodone (From Vicodin) AdvReac Nausea/Vom/ Verified 11/18/23 11:42 Diarrhea metoclopramide (From Reglan) AdvReac Other Verified 11/18/23 11:42 promethazine (From Phenergan) AdvReac Other Verified 11/18/23 11:42 Family History (Updated 11/18/23 @ 14:03 by Clemencia Clinton) Mother Hypertension Grandfather Prostate cancer Sister Colon cancer Other Ovarian cancer Surgical History History of open reduction and internal fixation (ORIF) procedure History of lumbar discectomy s/p polyp removal Social History adopted: No household members: spouse and children number of children: 2 current occupational status: employed 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 [employer] current occupational exposures/hazards: No pets and animals: Yes pets and animals: dog(s) history of recent travel: No sexually active: Yes Smoking Status: Former smoker alcohol intake: current alcohol intake frequency: holidays/special occasions only substance use type: does not use caffeine: Yes what type of physical activity do you participate in: weight training frequency: 1-2 times per week seatbelt use: always do you feel safe at home: Yes additional social history: - [place] History 3 Elective abortions Hx Para 2 Spontaneous abortions Hx # Term Pregnancies Ectopic pregnancies Hx # Pregnancies Multiple births # of living children Past Pregnancies Del. Date Name GA/Weeks Outcome Route Bth Weight Gen Labor Lgth Anesthesia Del Locatn Provider FOB 03/01/08 Madelaine 37 live - full term 7lbs ?oz Female ep idural [facility] Dr. Ron Rianey 01/12/15 Shirley 37 live - full term 7lbs 12oz Female e pidural [facility] Dr. Joseph Koroma Delivery Date: 03/01/08 Last Updated by: Maribeth Rider Gestational hypertension Delivery Date: 01/12/15 Last Updated by: Maribeth Rider Gestational hypertension Visit Details Expected Delivery Route/Plan Labor Preferences- CB/BF classes: yes labor support person: Ga labor intervention preferences: [] pain management options preferred: limited cut cord/dad catch: yes : yes PP control planned: discussed discussed possible routes of delivery and associated risks: [] special requests: [] Plans Covid status: [] Flu vaccine: declined Tdap vaccine: given Rhogam: NA LARC form signed: yes movement and labor precautions reviewed. Problem list reviewed and updated with the most current plan of care details and appropriate orders placed. Relevant counseling for the gestational age provided. Continue routine care and follow up unless otherwise noted in visit notes/problem list details OB Flowsheet Initial Weight: 220 lb Date -?-?-?-?-?-?-?-?-?-?-?-?- EGA Weight BP Urine Prot -?-?-?-?-?-?--?-?-?-?-?-?- Glucose FHR FuHt Pres Dilation -?-?-?-?-?-?-?-?-?-?-?-?- Effaced St Visit Note 05/10/23 -?-?-?-?-?-?-?-?-?-?-?-?- 9w 4d 220 lb 6 oz (+6 oz) 137/83 -?-?-?-?-?-?-?-?-?-?-?-?- 171 -?-?-?-?-?-?-?-?-?-?-?-?- kw-CLR cons with dates. plans NIPT. kw-CLR cons with dates. plan s NIPT. start asa at 12 weeks 06/04/23 -?-?-?-?-?-?-?-?-?-?-?-?- 13w 1d 224 lb 6 oz (+4 lb 6 oz) 142/85 Negative -?-?-?-?-?-?-?-?-?-?-?-?- Negative 165 -?-?-?-?-?-?-?-?-?-?-?-?- LC- normal labs. LC- no vb/cramping. normal l abs. having increased thirst glucose 86 in office. o LC- no vb/cramping. normal l abs. having increased thirst glucose 86 in office. declines afp. 07/06/23 -?-?-?-?-?-?-?-?-?-?-?-?- 17w 5d 230 lb 2 oz (+10 lb 2 oz) 157/88 Negative -?-?-?-?-?-?-?-?-?-?-?-?- Negative 150 -?-?-?-?-?-?-?-?-?-?-?-?- SM- no vb crmapi ng updated PL, ekg ordered SM- no vb crmaping updated P L, ekg ordered desires sterilization. discussed PPTL SM- no vb crmaping updated P L, ekg ordered desires sterilization. discussed PPTL. discussed tracking bps to see if medicine needs increased. 08/01/23 -?-?-?-?-?-?-?-?-?-?-?-?- 21w 3d 237 lb (+17 lb) 152/88 Negative -?-?-?-?-?-?-?-?-?-?-?-?- Negative 153 -?-?-?-?-?-?-?-?-?-?-?-?- JV- stopping met oprolol 50 daily, and starting labetalol bid. consulting mfm. 08/09/23 -?-?-?-?-?-?-?-?-?-?-?-?- 22w 4d 234 lb 8 oz (+14 lb 8 oz) 145/85 -?-?-?-?-?-?-?-?-?-?-?-?- 155 -?-?-?-?-?-?-?-?-?-?-?-?- KW- BPs now 130- 140/80s. KW- no vb/lof/ctx. good fm. BPs now 130-140/80s. Dizziness in the mornings only-encouraged taking BP when dizzy-suspect low glucose due to timing of taking medication. Will repeat CMP with 28 week labs. KW- no vb/lof/ctx. good fm. BPs now 130-140/80s. Dizziness in the mornings only-encouraged taking BP when dizzy-suspect low glucose due to timing of taking medication. Will repeat CMP with 28 week labs. P/C ratio today 08/31/23 -?-?-?-?-?-?-?-?-?-?-?-?- 25w 5d 236 lb (+16 lb) 125/72 Negative -?-?-?-?-?-?-?-?-?-?-?-?- Negative 147 -?-?-?-?-?-?-?-?-?-?-?-?- LC- no vb/ctx/lo f. good fm.all fastings over 95 to start on metformin rto in 1 week. 09/07/23 -?-?-?-?-?-?-?-?-?-?-?-?- 26w 5d 128 lb (-92 lb) 102/58 Negative -?-?-?-?-?-?-?-?-?-?-?-?- Negative 150 -?-?-?-?-?-?-?-?-?-?-?-?- LC- 1 fasting un isai 95, 3 over. metformin increased to 1000mg at night, stay at 500mg AM. no vb/ctx/lof. good fm. 09/21/23 -?-?-?-?-?-?-?-?-?-?-?-?- 28w 5d 239 lb 4 oz (+19 lb 4 oz) 128/76 Negative -?-?-?-?-?-?-?-?-?-?-?-?- Negative 145 28 -?-?-?-?-?-?-?-?-?-?-?-?- LC- fasting cont over 95- increased metformin 1000mg BID and consulted Dr. Ferrer for insulin management cw SM agrees with managemt. to have appt in 1 week with us if cant get in with to start insulin next week if no improvement on fastings. 09/27/23 -?-?-?-?-?-?-?-?-?-?-?-?- 29w 4d 239 lb 4 oz (+19 lb 4 oz) 124/82 Negative -?-?-?-?-?-?-?-?-?-?-?-?- Negative 150 30 -?-?-?-?-?-?-?-?-?-?-?-?- MH-No VB. Unruly Lopes. FBS still >95:start 10U NPH QHS. Call readings to 09/3010/05/23 -?-?-?-?-?-?-?-?-?-?-?-?- 30w 5d 241 lb (+21 lb) 132/83 Negative -?-?-?-?-?-?-?-?-?-?-?-?- Negative 145 33 -?-?-?-?-?-?-?-?-?-?-?-?- - increasing i nsulin at night getting closer to goal 10/19/23 -?-?-?-?-?-?-?-?-?-?-?-?- 32w 5d 244 lb 8 oz (+24 lb 8 oz) 134/76 Negative -?-?-?-?-?-?-?-?-?-?-?-?- Negative 140 33 -?-?-?-?-?-?-?-?-?-?-?-?- JV- fasting 96, increasing insulin 2 more units. rpt bp JV- fasting 96, increasing i nsulin 2 more units. rpt bp was much better. nst re active. 10/26/23 -?-?-?-?-?-?-?-?-?-?-?-?- 33w 5d 249 lb (+29 lb) 137/73 -?-?-?-?-?-?-?-?-?-?-?-?- 140 -?-?-?-?-?--?-?-?-?-?-?-?- JV- no lof, vagi nal bleeding, or cramping. fasting glucose levels are now better but her 2 hrs after breakfast are higher. stopping metformin and starting twice a day NPH 11/02/23 -?-?-?-?-?-?-?-?-?-?-?-?- 34w 5d 247 lb 4 oz (+27 lb 4 oz) 146/86 144/88 Negative -?-?-?-?-?-?-?-?-?-?-?-?- Negative 140 35 -?-?-?-?-?-?-?-?-?-?-?-?- KW- no vb/lof/ct x. good fm. 20 units in AM and 28 units in PM. Discussed with SM and JV for dosing. Starting Regular insulin in the AM. Growth US on 11/06. PIH labs today per pt request 11/09/23 -?-?-?-?-?-?-?-?-?-?-?-?- 35w 5d 250 lb (+30 lb) 144/82 Negative -?-?-?-?-?-?-?-?-?-?-?-?- Negative 135 38 -?-?-?-?-?-?-?-?-?-?-?-?- KW- no vb/lof/ct x. good fm. blood sugars better controlled after adding regular insulin. home bps range 140/90-150/100. IOL discussed and scheduled KW- no vb/lof/ctx. good fm. blood sugars better controlled after adding regular insulin. home bps range 140/90-150/100. IOL discussed and scheduled. Will plan for cytotec but needs VE next visit with GBS to confirm 11/16/23 -?-?-?-?-?-?-?-?-?-?-?-?- 36w 5d 250 lb (+30 lb) 148/86 Negative -?-?-?-?-?-?--?-?-?-?-?-?- Negative 140 Cephalic -?-?-?-?-?-?-?-?-?-?-?-?- SM- no vb lof go od fm no regular ctx SM- no vb lof good fm no reg ular ctx BS still mildly elevated fasting despite starting metformin, declined regular insulin. nl to mildly elevated bps at home NST FHR Rate Baby A Baseline: 140 Variability:: Moderate Accelerations:: 15 x 15 Decelerations:: None NST Reactive:: Yes FHR Category:: Category I Uterine Activity:: q3-5 ROS Constitutional Constitutional: Reports systems reviewed and no addt'l complaints, except as documented ENT HEENT: Reports systems reviewed and no addt'l complaints, except as documented Cardiovascular Cardiovascular: Reports systems reviewed and no addt'l complaints, except as documented Respiratory/Chest Respiratory/Chest: Reports systems reviewed and no addt'l complaints, except as documented Gastrointestinal Gastrointestinal: Reports systems reviewed and no addt'l complaints, except as documented and nausea; Denies abdominal pain Genitourinary Genitourinary: Reports systems reviewed and no addt'l complaints, except as documented, contractions Details: present and frequency (regular ) and movement Details: present Musculoskeletal Musculoskeletal: Reports systems reviewed and no addt'l complaints, except as documented Integumentary Integumentary: Reports as per HPI Neurologic Neurologic: Reports systems reviewed and no addt'l complaints, except as documented Endocrine Endocrinology: Reports systems reviewed and no addt'l complaints, except as documented Vital Signs Vital Signs Vital Signs: 11/18/23 11:38 11/18/23 11:38 11/18/23 11:38 Temperature Temperature Source Pulse Rate 93 Respiratory Rate Respiratory Effort Respiratory Depth Respiratory Pattern Blood Pressure 158/80 H Blood Pressure Mean BP Systolic 158 BP Diastolic 80 Blood Pressure Source Blood Pressure Position Blood Pressure Location Pulse Ox 95 Oxygen Delivery Method 11/18/23 11:47 11/18/23 11:47 11/18/23 11:50 Temperature Temperature Source Oral Pulse Rate 95 Respiratory Rate Respiratory Effort Respiratory Depth Respiratory Pattern Blood Pressure 146/76 H Blood Pressure Mean BP Systolic 146 BP Diastolic 76 Blood Pressure Source Blood Pressure Position Blood Pressure Location Pulse Ox Oxygen Delivery Method 11/18/23 11:50 11/18/23 11:50 11/18/23 11:50 Temperature Temperature Source Pulse Rate 90 Respiratory Rate 14 Respiratory Effort Respiratory Depth Respiratory Pattern Blood Pressure Blood Pressure Mean BP Systolic BP Diastolic Blood Pressure Source Blood Pressure Position Blood Pressure Location Pulse Ox 97 Oxygen Delivery Method 11/18/23 11:50 11/18/23 11:57 11/18/23 11:57 Temperature 98.6 F Temperature Source Pulse Rate 87 Respiratory Rate Respiratory Effort Respiratory Depth Respiratory Pattern Blood Pressure 153/80 H Blood Pressure Mean BP Systolic 153 BP Diastolic 80 Blood Pressure Source Blood Pressure Position Blood Pressure Location Pulse Ox Oxygen Delivery Method 11/18/23 12:08 11/18/23 12:08 11/18/23 12:17 Temperature Temperature Source Pulse Rate 90 Respiratory Rate Respiratory Effort Respiratory Depth Respiratory Pattern Blood Pressure 155/92 H 161/88 H Blood Pressure Mean BP Systolic 155 161 BP Diastolic 92 88 Blood Pressure Source Blood Pressure Position Blood Pressure Location Pulse Ox Oxygen Delivery Method 11/18/23 12:17 11/18/23 12:27 11/18/23 12:27 Temperature Temperature Source Pulse Rate 90 89 Respiratory Rate Respiratory Effort Respiratory Depth Respiratory Pattern Blood Pressure 162/90 H Blood Pressure Mean BP Systolic 162 BP Diastolic 90 Blood Pressure Source Blood Pressure Position Blood Pressure Location Pulse Ox Oxygen Delivery Method 11/18/23 12:37 11/18/23 12:37 11/18/23 12:49 Temperature Temperature Source Pulse Rate 90 Respiratory Rate Respiratory Effort Respiratory Depth Respiratory Pattern Blood Pressure 169/91 H 146/93 H Blood Pressure Mean BP Systolic 169 146 BP Diastolic 91 93 Blood Pressure Source Blood Pressure Position Blood Pressure Location Pulse Ox Oxygen Delivery Method 11/18/23 12:49 11/18/23 12:57 11/18/23 12:57 Temperature Temperature Source Pulse Rate 91 89 Respiratory Rate Respiratory Effort Respiratory Depth Respiratory Pattern Blood Pressure 160/94 H Blood Pressure Mean BP Systolic 160 BP Diastolic 94 Blood Pressure Source Blood Pressure Position Blood Pressure Location Pulse Ox Oxygen Delivery Method 11/18/23 13:07 11/18/23 13:07 11/18/23 13:07 Temperature Temperature Source Pulse Rate 85 84 Respiratory Rate Respiratory Effort Respiratory Depth Respiratory Pattern Blood Pressure 174/91 H 160/94 H Blood Pressure Mean BP Systolic 174 BP Diastolic 91 Blood Pressure Source Blood Pressure Position Blood Pressure Location Pulse Ox Oxygen Delivery Method 11/18/23 13:08 11/18/23 13:08 11/18/23 13:10 Temperature Temperature Source Pulse Rate 88 106 H Respiratory Rate 16 Respiratory Effort Respiratory Depth Respiratory Pattern Blood Pressure 174/91 H Blood Pressure Mean 118 BP Systolic BP Diastolic Blood Pressure Source Monitor Blood Pressure Position Semi-Fowlers Blood Pressure Location Right Arm Pulse Ox 98 98 Oxygen Delivery Method Room Air 11/18/23 13:13 11/18/23 13:13 11/18/23 13:18 Temperature Temperature Source Pulse Rate 94 104 H Respiratory Rate Respiratory Effort Respiratory Depth Respiratory Pattern Blood Pressure Blood Pressure Mean BP Systolic BP Diastolic Blood Pressure Source Blood Pressure Position Blood Pressure Location Pulse Ox 98 Oxygen Delivery Method 11/18/23 13:18 11/18/23 13:23 11/18/23 13:23 Temperature Temperature Source Pulse Rate 96 Respiratory Rate Respiratory Effort Respiratory Depth Respiratory Pattern Blood Pressure Blood Pressure Mean BP Systolic BP Diastolic Blood Pressure Source Blood Pressure Position Blood Pressure Location Pulse Ox 98 98 Oxygen Delivery Method 11/18/23 13:25 11/18/23 13:25 11/18/23 13:27 Temperature 97.0 F L Temperature Source Temporal Temporal Pulse Rate 95 Respiratory Rate 16 Respiratory Effort Normal Respiratory Depth Normal Respiratory Pattern Normal Blood Pressure 168/88 H Blood Pressure Mean BP Systolic 168 BP Diastolic 88 Blood Pressure Source Blood Pressure Position Blood Pressure Location Pulse Ox 98 Oxygen Delivery Method Room Air 11/18/23 13:27 11/18/23 13:28 11/18/23 13:28 Temperature Temperature Source Pulse Rate 100 96 Respiratory Rate Respiratory Effort Respiratory Depth Respiratory Pattern Blood Pressure Blood Pressure Mean BP Systolic BP Diastolic Blood Pressure Source Blood Pressure Position Blood Pressure Location Pulse Ox 98 Oxygen Delivery Method 11/18/23 13:30 11/18/23 13:33 11/18/23 13:33 Temperature Temperature Source Pulse Rate 95 97 Respiratory Rate Respiratory Effort Respiratory Depth Respiratory Pattern Blood Pressure Blood Pressure Mean BP Systolic BP Diastolic Blood Pressure Source Blood Pressure Position Blood Pressure Location Pulse Ox 99 Oxygen Delivery Method 11/18/23 13:38 11/18/23 13:38 11/18/23 13:40 Temperature Temperature Source Pulse Rate 104 H Respiratory Rate 16 Respiratory Effort Normal Respiratory Depth Respiratory Pattern Normal Blood Pressure Blood Pressure Mean BP Systolic BP Diastolic Blood Pressure Source Blood Pressure Position Blood Pressure Location Pulse Ox 98 Oxygen Delivery Method 11/18/23 13:43 11/18/23 13:43 11/18/23 13:48 Temperature Temperature Source Pulse Rate 101 H 98 Respiratory Rate Respiratory Effort Respiratory Depth Respiratory Pattern Blood Pressure Blood Pressure Mean BP Systolic BP Diastolic Blood Pressure Source Blood Pressure Position Blood Pressure Location Pulse Ox 98 Oxygen Delivery Method 11/18/23 13:48 11/18/23 13:51 11/18/23 13:51 Temperature Temperature Source Pulse Rate 100 Respiratory Rate Respiratory Effort Respiratory Depth Respiratory Pattern Blood Pressure 154/78 H Blood Pressure Mean BP Systolic 154 BP Diastolic 78 Blood Pressure Source Blood Pressure Position Blood Pressure Location Pulse Ox 98 Oxygen Delivery Method 11/18/23 13:53 11/18/23 13:53 11/18/23 13:55 Temperature Temperature Source Temporal Pulse Rate 101 H Respiratory Rate Respiratory Effort Respiratory Depth Respiratory Pattern Blood Pressure Blood Pressure Mean BP Systolic BP Diastolic Blood Pressure Source Blood Pressure Position Blood Pressure Location Pulse Ox 98 Oxygen Delivery Method 11/18/23 13:55 11/18/23 13:59 11/18/23 13:59 Temperature 97.4 F L Temperature Source Temporal Pulse Rate 105 H Respiratory Rate Respiratory Effort Respiratory Depth Respiratory Pattern Blood Pressure Blood Pressure Mean BP Systolic BP Diastolic Blood Pressure Source Blood Pressure Position Blood Pressure Location Pulse Ox 98 Oxygen Delivery Method 11/18/23 14:03 11/18/23 14:03 11/18/23 14:04 Temperature Temperature Source Pulse Rate 101 H 108 H Respiratory Rate Respiratory Effort Respiratory Depth Respiratory Pattern Blood Pressure 149/86 H Blood Pressure Mean BP Systolic 149 BP Diastolic 86 Blood Pressure Source Blood Pressure Position Blood Pressure Location Pulse Ox Oxygen Delivery Method 11/18/23 14:04 11/18/23 14:09 11/18/23 14:09 Temperature Temperature Source Pulse Rate 104 H Respiratory Rate Respiratory Effort Respiratory Depth Respiratory Pattern Blood Pressure Blood Pressure Mean BP Systolic BP Diastolic Blood Pressure Source Blood Pressure Position Blood Pressure Location Pulse Ox 98 98 Oxygen Delivery Method 11/18/23 14:10 11/18/23 14:13 11/18/23 14:13 Temperature Temperature Source Pulse Rate 106 H 104 H Respiratory Rate Respiratory Effort Respiratory Depth Respiratory Pattern Blood Pressure 149/86 H 144/73 H Blood Pressure Mean BP Systolic 144 BP Diastolic 73 Blood Pressure Source Blood Pressure Position Blood Pressure Location Pulse Ox Oxygen Delivery Method 11/18/23 14:20 11/18/23 14:20 11/18/23 14:23 Temperature Temperature Source Pulse Rate 102 H Respiratory Rate Respiratory Effort Respiratory Depth Respiratory Pattern Blood Pressure 160/80 H Blood Pressure Mean BP Systolic 160 BP Diastolic 80 Blood Pressure Source Blood Pressure Position Blood Pressure Location Pulse Ox 98 Oxygen Delivery Method 11/18/23 14:23 11/18/23 14:25 11/18/23 14:25 Temperature Temperature Source Pulse Rate 100 101 H Respiratory Rate Respiratory Effort Respiratory Depth Respiratory Pattern Blood Pressure Blood Pressure Mean BP Systolic BP Diastolic Blood Pressure Source Blood Pressure Position Blood Pressure Location Pulse Ox 98 Oxygen Delivery Method 11/18/23 14:25 11/18/23 14:25 11/18/23 14:34 Temperature 97.1 F L Temperature Source Temporal Temporal Pulse Rate 106 H Respiratory Rate 16 Respiratory Effort Respiratory Depth Respiratory Pattern Blood Pressure Blood Pressure Mean BP Systolic BP Diastolic Blood Pressure Source Blood Pressure Position Blood Pressure Location Pulse Ox Oxygen Delivery Method 11/18/23 14:34 11/18/23 14:37 11/18/23 14:37 Temperature Temperature Source Pulse Rate 114 H Respiratory Rate Respiratory Effort Respiratory Depth Respiratory Pattern Blood Pressure 144/75 H Blood Pressure Mean BP Systolic 144 BP Diastolic 75 Blood Pressure Source Blood Pressure Position Blood Pressure Location Pulse Ox 98 Oxygen Delivery Method 11/18/23 14:39 11/18/23 14:39 11/18/23 14:44 Temperature Temperature Source Pulse Rate 106 H 106 H Respiratory Rate Respiratory Effort Respiratory Depth Respiratory Pattern Blood Pressure Blood Pressure Mean BP Systolic BP Diastolic Blood Pressure Source Blood Pressure Position Blood Pressure Location Pulse Ox 98 Oxygen Delivery Method 11/18/23 14:44 11/18/23 14:48 11/18/23 14:48 Temperature Temperature Source Pulse Rate 103 H Respiratory Rate Respiratory Effort Respiratory Depth Respiratory Pattern Blood Pressure 148/80 H Blood Pressure Mean BP Systolic 148 BP Diastolic 80 Blood Pressure Source Blood Pressure Position Blood Pressure Location Pulse Ox 98 Oxygen Delivery Method 11/18/23 14:49 11/18/23 14:49 11/18/23 14:54 Temperature Temperature Source Pulse Rate 104 H 106 H Respiratory Rate Respiratory Effort Respiratory Depth Respiratory Pattern Blood Pressure Blood Pressure Mean BP Systolic BP Diastolic Blood Pressure Source Blood Pressure Position Blood Pressure Location Pulse Ox 98 Oxygen Delivery Method 11/18/23 14:54 11/18/23 14:55 11/18/23 14:59 Temperature Temperature Source Pulse Rate 103 H Respiratory Rate 16 Respiratory Effort Normal Respiratory Depth Normal Respiratory Pattern Normal Blood Pressure Blood Pressure Mean BP Systolic BP Diastolic Blood Pressure Source Blood Pressure Position Blood Pressure Location Pulse Ox 97 Oxygen Delivery Method 11/18/23 14:59 11/18/23 15:04 11/18/23 15:04 Temperature Temperature Source Pulse Rate 107 H Respiratory Rate Respiratory Effort Respiratory Depth Respiratory Pattern Blood Pressure Blood Pressure Mean BP Systolic BP Diastolic Blood Pressure Source Blood Pressure Position Blood Pressure Location Pulse Ox 97 98 Oxygen Delivery Method 11/18/23 15:05 11/18/23 15:05 11/18/23 15:20 Temperature Temperature Source Pulse Rate 105 H Respiratory Rate Respiratory Effort Respiratory Depth Respiratory Pattern Blood Pressure 137/82 H 138/81 H Blood Pressure Mean BP Systolic 137 138 BP Diastolic 82 81 Blood Pressure Source Blood Pressure Position Blood Pressure Location Pulse Ox Oxygen Delivery Method 11/18/23 15:20 11/18/23 15:25 11/18/23 15:35 Temperature Temperature Source Pulse Rate 110 H Respiratory Rate Respiratory Effort Normal Respiratory Depth Normal Respiratory Pattern Normal Blood Pressure 133/80 H Blood Pressure Mean BP Systolic 133 BP Diastolic 80 Blood Pressure Source Blood Pressure Position Blood Pressure Location Pulse Ox Oxygen Delivery Method 11/18/23 15:35 11/18/23 15:50 11/18/23 15:50 Temperature Temperature Source Pulse Rate 103 H 101 H Respiratory Rate Respiratory Effort Respiratory Depth Respiratory Pattern Blood Pressure 135/78 H Blood Pressure Mean BP Systolic 135 BP Diastolic 78 Blood Pressure Source Blood Pressure Position Blood Pressure Location Pulse Ox Oxygen Delivery Method 11/18/23 16:15 11/18/23 16:15 11/18/23 16:16 Temperature Temperature Source Pulse Rate 92 95 Respiratory Rate Respiratory Effort Respiratory Depth Respiratory Pattern Blood Pressure 126/59 H Blood Pressure Mean BP Systolic 126 BP Diastolic 59 Blood Pressure Source Blood Pressure Position Blood Pressure Location Pulse Ox Oxygen Delivery Method 11/18/23 16:16 11/18/23 16:21 11/18/23 16:21 Temperature Temperature Source Pulse Rate 93 Respiratory Rate Respiratory Effort Respiratory Depth Respiratory Pattern Blood Pressure Blood Pressure Mean BP Systolic BP Diastolic Blood Pressure Source Blood Pressure Position Blood Pressure Location Pulse Ox 97 99 Oxygen Delivery Method 11/18/23 16:24 11/18/23 16:24 11/18/23 16:24 Temperature Temperature Source Temporal Pulse Rate 92 Respiratory Rate Respiratory Effort Respiratory Depth Respiratory Pattern Blood Pressure 126/63 H Blood Pressure Mean BP Systolic 126 BP Diastolic 63 Blood Pressure Source Blood Pressure Position Blood Pressure Location Pulse Ox Oxygen Delivery Method 11/18/23 16:24 11/18/23 16:26 11/18/23 16:26 Temperature 97.2 F L Temperature Source Temporal Pulse Rate 92 93 Respiratory Rate 16 Respiratory Effort Normal Respiratory Depth Normal Respiratory Pattern Normal Blood Pressure 126/63 H Blood Pressure Mean 84 BP Systolic BP Diastolic Blood Pressure Source Monitor Blood Pressure Position Semi-Fowlers Blood Pressure Location Right Arm Pulse Ox 98 98 Oxygen Delivery Method Room Air 11/18/23 17:30 11/18/23 17:31 11/18/23 17:31 Temperature Temperature Source Pulse Rate 93 Respiratory Rate Respiratory Effort Normal Respiratory Depth Normal Respiratory Pattern Normal Blood Pressure 119/68 Blood Pressure Mean BP Systolic 119 BP Diastolic 68 Blood Pressure Source Blood Pressure Position Blood Pressure Location Pulse Ox Oxygen Delivery Method 11/18/23 17:31 11/18/23 17:31 11/18/23 17:31 Temperature 97.0 F L Temperature Source Temporal Pulse Rate Respiratory Rate 16 Respiratory Effort Respiratory Depth Respiratory Pattern Blood Pressure Blood Pressure Mean BP Systolic BP Diastolic Blood Pressure Source Blood Pressure Position Blood Pressure Location Pulse Ox Oxygen Delivery Method 11/18/23 17:32 11/18/23 17:32 11/18/23 18:30 Temperature Temperature Source Temporal Pulse Rate 98 Respiratory Rate Respiratory Effort Respiratory Depth Respiratory Pattern Blood Pressure Blood Pressure Mean BP Systolic BP Diastolic Blood Pressure Source Blood Pressure Position Blood Pressure Location Pulse Ox 98 Oxygen Delivery Method 11/18/23 18:30 11/18/23 18:30 11/18/23 18:30 Temperature 97.0 F L Temperature Source Pulse Rate Respiratory Rate 16 Respiratory Effort Normal Respiratory Depth Normal Respiratory Pattern Normal Blood Pressure Blood Pressure Mean BP Systolic BP Diastolic Blood Pressure Source Blood Pressure Position Blood Pressure Location Pulse Ox Oxygen Delivery Method 11/18/23 18:33 11/18/23 18:33 11/18/23 18:33 Temperature Temperature Source Pulse Rate 96 Respiratory Rate Respiratory Effort Respiratory Depth Respiratory Pattern Blood Pressure 148/73 H Blood Pressure Mean BP Systolic 148 BP Diastolic 73 Blood Pressure Source Blood Pressure Position Blood Pressure Location Pulse Ox 98 Oxygen Delivery Method 11/18/23 19:30 11/18/23 19:30 11/18/23 19:30 Temperature Temperature Source Temporal Pulse Rate 98 Respiratory Rate Respiratory Effort Respiratory Depth Respiratory Pattern Blood Pressure 147/71 H Blood Pressure Mean BP Systolic 147 BP Diastolic 71 Blood Pressure Source Blood Pressure Position Blood Pressure Location Pulse Ox Oxygen Delivery Method 11/18/23 19:30 11/18/23 19:30 11/18/23 19:30 Temperature 97.1 F L Temperature Source Pulse Rate Respiratory Rate 16 Respiratory Effort Respiratory Depth Respiratory Pattern Blood Pressure Blood Pressure Mean BP Systolic BP Diastolic Blood Pressure Source Blood Pressure Position Blood Pressure Location Pulse Ox 98 Oxygen Delivery Method Weight Weight: 251 lb 8 oz Body Mass Index (BMI) 41.8 Physical Exam Const alert, oriented x3 and healthy appearing Constitutional Narrative: uncomfortable with contractions HEENT normocephalic and moist oral mucous membranes Head and Scalp: atraumatic Neck full ROM, no lymphadenopathy, supple and thyroid normal General: trachea midline Thyroid: thyroid normal Lymph Lymphatic: no lymphadenopathy noted Chest inspection of chest normal Resp normal respiratory effort Cardio regular rate GI normal to inspection, nondistended, normoactive bowel sounds, soft to palpation and non-tender Inspection: gravid external exam normal Bimanual Exam - Vag & Uterus: uterus non-tender Manual OB Exam: estimated gestational size appropriate, presentation cephalic, dilated, effaced and station Extremity normal to inspection General Extremity: Negative for edema Skin no rashes or lesions noted Neuro deep tendon reflexes 2+ bilaterally Motor Exam: strength 5/5 throughout and clonus absent Psych mental status grossly normal Labs Labs Labs: Blood Type B POSITIVE Antibody Screen NEGATIVE Hct 36.3 % (37-47) L Hgb 11.7 g/dL (12.0-15.0) L Pap Smear Negative Obstetrics Ultrasound Syphilis Total Ab Non-reactive Rubella IgG Antibody Reactive (Nonreactive) Hep Bs Antigen Non-Reactive (Nonreactive) Hepatitis C Antibody Non-Reactive (Nonreactive) Chlamydia DNA (KRISTAL) Negative (Negative) N.gonorrhoeae DNA (KRISTAL) Negative (Negative) HIV 1&2 Antibody Non-Reactive (Nonreactive) Glucose 1 Hr 50 gm 202 mg/dL (70-140) H Rhogam given: No Miscellaneous Test Assessment & Plan (1) Preeclampsia, severe: (2) Contraception management: COMMENT: wants 6 wk pp tubal (3) Gestational diabetes mellitus (GDM) affecting , antepartum: COMMENT: 2x weekly nsts at 32, growth US q 4. deliver 38 due to chtn also. nutrition consult and testing 4x daily. 08/30 started on metformin 500mg bid. 09/06 increased to 1000mg at PM, at 500mg am. 09/20 increased to 1000mg BID, consult with Dr. Ferrer 09/26 FBS>95:start NPH 10U Qhs, call readings 09/30 and titrate up 2U QD if >95 10/26/23- pt unable to get a hold of Dr. ferrer's office. stopping metformin and starting nph at breakfast 20 units, keep 28 units at bedtime (4) GBS (group B streptococcus) UTI complicating : QUALIFIERS: Trimester: third trimester Qualified Code(s): O23.43 - Unspecified infection of urinary tract in , third trimester; B95.1 - Streptococcus, group B, as the cause of diseases classified elsewhere COMMENT: Treat in labor. not high enough for ATB (5) Obesity affecting : QUALIFIERS: Trimester: third trimester COMMENT: HgbA1c ordered with NOB labs=5.4% (6) : QUALIFIERS: Weeks of gestation: 36 weeks Qualified Code(s): Z3A.36 - 36 weeks gestation of COMMENT: NIPT low risk, declined carrier and ntd screen. unremarkable anatomy, consistent dates. (7) Supervision of high risk in first trimester: COMMENT: PRR MAYA 12/09/23 boy TI Shirley Burkett : [place] (8) Abnormal Pap smear of cervix: COMMENT: ASCUS negative HPV, repeat in 3 years (9) Herniated nucleus pulposus, L4-5 left: COMMENT: unable to obtain epidural in labor. has nerve stimulator. (10) Sciatica of left side: (11) Anxiety: COMMENT: Changed from Fluoxeine to zoloft 50mg. Stable (12) ILA (obstructive sleep apnea): (13) Hypertension: QUALIFIERS: Hypertension type: primary hypertension Qualified Code(s): I10 - Essential (primary) hypertension COMMENT: weekly bpp at 32, weekly nst. The patient carries a history of gestational hypertension with her first 2 pregnancies and the hypertension persisted after her second . She had been treated with Bystolic / Metoprolol but her blood pressure was elevated and switched to labetalol 200 mg twice daily which was recently increased to 400 mg twice daily and her blood pressure is well-controlled at this time. PLAN: Plan Patient presents IOL, plan management for with cytotec. Pain management: plans epidural. GBS negative. Management of any complications: pree- start mag and hydralazine I have reviewed the [facility] and made any clinically relevant updates.
[2023-11-18] MEDS: miSOPROStol 50 MCG TABLET VAGINAL (20:17)
[2023-11-18] MEDS: CHLORHEXIDINE GLUC 2% CLOTH 1 EACH TOWELETTE TOPICAL (21:42)
[2023-11-18 22:14] LABS: Bedside Glucose 101 mg/dL (74-106)
[2023-11-19] VITALS (73 sets, daily range): BP systolic 89–161; BP diastolic 43–86; PULSE 78–100; RESP 16–18; TEMP 36–36.7; O2SAT 95–100
[2023-11-19] MEDS: Penicillin G 3,000,000 Units 50 ML 100 UNITS IV ×6 (01:31→22:56)
[2023-11-19] MEDS: miSOPROStol 50 MCG TABLET VAGINAL (02:23)
[2023-11-19 03:35] LABS: Bedside Glucose 97 mg/dL (74-106)
[2023-11-19] MEDS: Labetalol 200 MG Tablet 400 MG PO ×2 (05:46→13:57)
[2023-11-19] MEDS: hydrALAZINE 10 MG Tablet 20 MG PO (05:46)
[2023-11-19 06:21] LABS: Bedside Glucose 129 mg/dL (74-106)
[2023-11-19] MEDS: 0.9% Normal Saline Single 100 ML IV.SOLN. INTRA-UTER (07:17)
[2023-11-19 07:19] LABS: Bedside Glucose 103 mg/dL (74-106)
[2023-11-19] MEDS: Magnesium Sulfate 20 GM/500 ML BAG IV ×2 (08:55→18:46)
[2023-11-19] MEDS: Oxytocin 15 Units/NS 250ml 15 UNITS/250 ML IV.SOLN 2 UNITS IV (09:01)
[2023-11-19 09:03] LABS: Bedside Glucose 103 mg/dL (74-106)
[2023-11-19] MEDS: CHLORHEXIDINE GLUC 2% CLOTH 1 EACH TOWELETTE TOPICAL ×2 (09:37→22:00)
[2023-11-19 10:02] LABS: Bedside Glucose 104 mg/dL (74-106)
--- NOTE | 2023-11-19 10:03 | PCM.PN.BLA ---
Progress Note reveiwed tracing and cat I, now 1 cm, fb placed. will start pit
[2023-11-19 11:17] LABS: Bedside Glucose 110 mg/dL (74-106)
[2023-11-19] MEDS: Acetaminophen 500 MG Tablet PO (13:00)
[2023-11-19] MEDS: Ondansetron 4 MG/2 ML Vial IV (15:01)
[2023-11-19] MEDS: 0.9% Saline Lock 10 ML Syringe IV (15:01)
[2023-11-19 15:25] LABS: Bedside Glucose 106 mg/dL (74-106)
--- NOTE | 2023-11-19 18:04 | PCM.PN.BLA ---
Progress Note arom clear fluid cat I tracing
[2023-11-19 19:10] LABS: Bedside Glucose 94 mg/dL (74-106)
[2023-11-19 21:03] LABS: Bedside Glucose 86 mg/dL (74-106)
[2023-11-19 21:28] LABS: Bedside Glucose 89 mg/dL (74-106)
[2023-11-19] MEDS: LACTATED RINGERS 500 ML 999 ML IV (22:05)
[2023-11-19 22:41] LABS: Bedside Glucose 80 mg/dL (74-106)
[2023-11-19] MEDS: fentaNYL-bupivacaine (epidural) 100 ML BAG EPIDURAL (22:43)
[2023-11-20] VITALS (63 sets, daily range): BP systolic 93–139; BP diastolic 51–85; PULSE 71–103; RESP 14–16; TEMP 36.1–37; O2SAT 92–99
[2023-11-20 00:13] LABS: Bedside Glucose 86 mg/dL (74-106)
[2023-11-20] MEDS: LACTATED RINGERS 500 ML 999 ML IV (00:28)
[2023-11-20 00:33] LABS: Bedside Glucose 89 mg/dL (74-106)
[2023-11-20 01:33] LABS: Bedside Glucose 90 mg/dL (74-106)
[2023-11-20] MEDS: Penicillin G 3,000,000 Units 50 ML 100 UNITS IV (02:43)
[2023-11-20 02:55] LABS: Bedside Glucose 78 mg/dL (74-106)
[2023-11-20] MEDS: fentaNYL-bupivacaine (epidural) 100 ML BAG EPIDURAL (04:21)
[2023-11-20 04:26] LABS: Bedside Glucose 91 mg/dL (74-106)
[2023-11-20 04:56] LABS: Bedside Glucose 96 mg/dL (74-106)
[2023-11-20] MEDS: Oxytocin 15 Units/NS 250ml 15 UNITS/250 ML IV.SOLN 334 UNITS IV (05:53)
--- NOTE | 2023-11-20 06:07 | OP.PCM_ITS ---
Assessment & Plan (1) Preeclampsia, severe: (2) Contraception management: COMMENT: wants 6 wk pp tubal (3) Gestational diabetes mellitus (GDM) affecting , antepartum: COMMENT: 2x weekly nsts at 32, growth US q 4. deliver 38 due to chtn also. nutrition consult and testing 4x daily. 08/30 started on metformin 500mg bid. 09/06 increased to 1000mg at PM, at 500mg am. 09/20 increased to 1000mg BID, consult with Dr. North 09/26 FBS>95:start NPH 10U Qhs, call readings 09/30 and titrate up 2U QD if >95 10/26/23- pt unable to get a hold of Dr. north's office. stopping metformin and starting nph at breakfast 20 units, keep 28 units at bedtime (4) GBS (group B streptococcus) UTI complicating : QUALIFIERS: Trimester: third trimester Qualified Code(s): O23.43 - Unspecified infection of urinary tract in , third trimester; B95.1 - Streptococcus, group B, as the cause of diseases classified elsewhere COMMENT: Treat in labor. not high enough for ATB (5) Obesity affecting : QUALIFIERS: Trimester: third trimester COMMENT: HgbA1c ordered with NOB labs=5.4% (6) : QUALIFIERS: Weeks of gestation: 36 weeks Qualified Code(s): Z3A.36 - 36 weeks gestation of COMMENT: NIPT low risk, declined carrier and ntd screen. unremarkable anatomy, consistent dates. (7) Supervision of high risk in first trimester: COMMENT: PRR MAYA 12/09/23 boy PC Shirley Burkett : [place] (8) Abnormal Pap smear of cervix: COMMENT: ASCUS negative HPV, repeat in 3 years (9) Hypertension: QUALIFIERS: Hypertension type: primary hypertension Qualified Code(s): I10 - Essential (primary) hypertension COMMENT: weekly bpp at 32, weekly nst. The patient carries a history of gestational hypertension with her first 2 pregnancies and the hypertension persisted after her second . She had been treated with Bystolic / Metoprolol but her blood pressure was elevated and switched to labetalol 200 mg twice daily which was recently increased to 400 mg twice daily and her blood pressure is well-controlled at this time. (10) Vaginal delivery: COMMENT: SM IOL Severe preeclampsia chtn gdma2 uncontrolled 37 boy lore Maternal Data Information MAAY Calculator Estimated Delivery Date Method Current WG Current Estimate 12/09/23 LMP (Certain) 37w 2d Vaginal Delivery Operative Information Date of Procedure: 11/20/23 Pre-Operative Diagnosis: see a/p diagnoses Post-Operative Diagnosis: same Surgery / Procedure Performed: Spontaneous Vaginal Delivery Type of Anesthesia: Epidural Special Medications: none Estimated Blood Loss: 200 Fluids Replaced: crystalloid Findings Description of Procedure: Patient began pushing and delivered the head in the LYNNE presentation. The head was delivered atraumatically and a loose shoulder cord ?1 was identified and the infant delivered through without complication. The anterior and posterior shoulders delivered without complication followed by the rest of the infant and the infant was placed on the maternal abdomen. Delayed cord clamping was employed for approximately 60 seconds. Cord was clamped and cut and gentle traction was applied to the cord and the placenta delivered spontaneously immediately following it was noted to be intact with three-vessel cord. The perineum and vagina were inspected and noted to have a first degree perineal laceration which was repaired in the usual fashion with 3-0 vicryl rapide.. EBL was 200 cc. Patient and tolerated delivery well. Amniotic Fluid Description: Clear Placental Delivery Description: Spontaneous Placenta Disposition: [facility] Cord Vessel Description: 3 Vessels Cord Entanglement: None Delayed Cord Clamping: Yes Post Vaginal Delivery Medications Given After Delivery: IV Pitocin Episiotomy Description: None Complication Complications: None Procedures Urinary/Genital [id number]: [id number] Vaginal Delivery [facility]
--- NOTE | 2023-11-20 06:10 | DCINST_ITS ---
Discharge Instructions Diet Discharge Diet: No restrictions Activity Discharge Activity: Return to Normal Activity, May Not Drive (while taking narcotic pain medications.) and May Shower May resume sexual activity in: 4-6 weeks Dressing / Incision Call your doctor if your incision/area has: Continuous Slow Oozing, Sudden Increased Bleeding, Increased Pain/ Swelling, Increased Redness and Foul Smelling Discharge Follow Up Care Please Follow Up With: Latasha Joshua MD When: Call [phone] to make an appointment with your doctor in 6 weeks. If you had elevated blood pressure or 4th degree laceration, you will need to be seen in 2 weeks. Test Results: Test results from this visit will be discussed in further detail at your follow- up appointment, if applicable. Discharge Plan Admission Admit Date/Time: 11/18/23 12:25 Attending Provider: Latasha Joshua Primary Care Provider: Katie Jones Discharge Orders/Prescriptions Prescriptions: No Action omeprazole 20 mg capsule,delayed release(DR/EC) 40 mg PO QHS docusate sodium [Colace] 100 mg capsule 100 mg PO DAILY aspirin [Adult Aspirin Regimen] 81 mg tablet,delayed release (DR/EC) 81 mg PO DAILY Qty: 30 6RF cholecalciferol (vitamin D3) 1,250 mcg (50,000 unit) capsule 1,250 mcg PO QWEEK One Daily 28-800-440 mg-mcg-mg combo pack 1 pkg PO DAILY mecobalamin (vitamin B12) 1,000 mcg tablet,chewable 1,000 mcg PO DAILY sertraline 50 mg tablet 50 mg PO DAILY labetalol 200 mg tablet 400 mg PO TID 30 Days Qty: 120 4RF Humulin N NPH Insulin KwikPen 100 unit/mL (3 mL) insulin pen 30 unit subcut QHS Patient Comments: also taking 20 units in am started on October 26 and keep 28 units at bedtime Rx Instructions: take 20 units with breakfast and 30 units at bedtime. insulin regular human 100 unit/mL solution 20 unit subcut .breakfast Rx Instructions: increase by 2 units every morning if 2 hour PPG after breakfast over 120 (DME) Blood Glucose Test Strip See Rx Instructions .MEDSUPPLY Qty: 120 5RF Rx Instructions: As directed-fasting & 2 hr post meals (DME) blood-glucose meter Misc See Rx Instructions .MEDSUPPLY Qty: 1 0RF Rx Instructions: As directed- Test fasting and 2 hours after meals (DME) lancets Misc See Rx Instructions .MEDJuvent Regenerative Technologies CorporationPPLY Qty: 200 5RF Rx Instructions: As directed-fasting & 2 hr post meals Referrals / Follow Up: Katie Jones DO [Primary Care Provider] - Disposition Disposition (needs filled in before D/C Order can be placed): Home, Self Care
[2023-11-20] MEDS: Oxytocin 15 Units/NS 250ml 15 UNITS/250 ML IV.SOLN 83 UNITS IV (06:25)
[2023-11-20 07:00] LABS: Bedside Glucose 110 mg/dL (74-106)
[2023-11-20] MEDS: Labetalol 200 MG Tablet 400 MG PO ×3 (07:05→21:50)
[2023-11-20 07:25] LABS: ALB/GLOB Ratio 0.5 RATIO (0.9-2.4); AST(SGOT) 16 U/L (15-37); Alanine Aminotransfer ALT/SGPT 13 U/L (13-56); Albumin, Serum 2.2 g/dL (3.2-5.0); Alkaline Phosphatase 110 U/L (45-117); Anion Gap 13 (5-15); BUN 14 mg/dL (7-18); Calcium,Total 7.1 mg/dL (8.5-10.1); Chloride 101 mmol/L (98-107); Creatinine, Serum 0.78 mg/dL (0.55-1.02); EST Glomerular Filtration Rate 90 mL/min (>60); Est Glom Filt Rate - Afr Amer 109 mL/min (>60); Estimated Creatinine Clearance 129.29 ml/min; Globulin 4.4 g/dL (2.2-4.2); Glucose 109 mg/dL (74-106); Potassium 3.9 mmol/L (3.5-5.1); Protein, Total 6.6 g/dL (6.4-8.2); Sodium Level 134 mmol/L (136-145)
[2023-11-20 07:35] LABS: Absolute Lymphocyte Count 2.27 X10^3/uL (0.83-4.51); Absolute Neutrophil Count 13.3 X10^3/uL (2.0-7.7); Basophil# 0.04 X10^3/uL; Basophil% 0.2 % (0-1); Eosinophil# 0.01 X10^3/uL; Eosinophils% 0.1 % (0-5); Hematocrit 34.4 % (37-47); Hemoglobin 11.2 g/dL (12.0-15.0); Lymphocyte # 2.27 X10^3/ul (0.83-4.51); Lymphocyte % 13.9 % (19-41); Mean Corp Hgb Conc 32.6 g/dL (32-36); Mean Corpuscular Hgb 27.9 pg (27.0-32.0); Mean Corpuscular Volume 85.6 fL (81-99); Mean Platelet Vol. 11.5 fl (6.2-12.0); Monocyte% 4.3 % (0-10); NRBC Flagged by Analyzer 0 % (0-5); Neutrophil # 13.26 X10^3/uL (2.7-7.7); Platelet Count 305 K/mm3 (150-450); RBC Distribution Width CV 13.3 % (11.6-14.6); RBC Distribution Width SD 41.7 fl (35.1-43.9); Red Blood Count 4.02 M/mm3 (4.2-5.4); White Blood Count 16.4 K/mm3 (4.4-11.0)
[2023-11-20] MEDS: Cefazolin 2 GM in 0.9% Normal Saline (100mL Bag) 100 ML IV (09:38)
[2023-11-20] MEDS: Acetaminophen 500 MG Tablet 1000 MG PO (12:24)
[2023-11-20] MEDS: Naproxen 500 MG Tablet PO (18:50)
[2023-11-20] MEDS: Senna/Docusate Sodium 1 Tablet PO (18:50)
[2023-11-20] MEDS: 0.9% Saline Lock 10 ML Syringe IV (18:53)
[2023-11-21 00:06] VITALS: BP 108/53; PULSE 81; RESP 16; TEMP 36.2; O2SAT 97
[2023-11-21 04:00] VITALS: BP 122/71; PULSE 83; RESP 16; TEMP 36.6; O2SAT 98
[2023-11-21 06:02] VITALS: BP 134/88
[2023-11-21] MEDS: Labetalol 200 MG Tablet 400 MG PO ×3 (06:03→22:03)
[2023-11-21 07:30] VITALS: BP 115/66; PULSE 80; RESP 16; TEMP 36.3; O2SAT 96
[2023-11-21] MEDS: Naproxen 500 MG Tablet PO (12:03)
--- NOTE | 2023-11-21 12:10 | PN.OBGYN_ITS ---
Subjective Subjective Patient doing well without complaints. Tolerating PO. Ambulating and voiding without difficulty. Feeding well/baby SCN. Denies chest pain, shortness of breath, calf pain/swelling, fevers, chills, lightheadedness. Objective Data Objective Data Vital Signs: Vital Signs Temp Pulse Resp BP Pulse Ox O2 Del Method 97.4 F L 80 16 115/66 96 Room Air 11/21/23 07:30 11/21/23 07:30 11/21/23 07:30 11/21/23 07:30 11/21/23 07:30 11/21/23 07:30 Oxygen Delivery Method Room Air Weight: 251 lb 8 oz Body Mass Index (BMI) 41.8 Intake & Output: Intake and Output for Last 24 Hours 11/19/23 11/20/23 11/21/23 23:59 23:59 23:59 Intake Total 3023.46 / 3083.46 2126.38 / 2126.38 Output Total 3350 / 3500 1135 / 1135 Balance -326.54 / -416.54 991.38 / 991.38 Lab / Micro Data 11/20/23 06:48 11/20/23 06:48 Physical Exam Const alert and oriented x3 HEENT normocephalic Eyes PERRL Neck full ROM Resp normal respiratory effort GI soft to palpation GI Narrative: FF below U Assessment & Plan (1) Vaginal delivery: COMMENT: SM IOL Severe preeclampsia chtn gdma2 uncontrolled 37 boy lore (2) Preeclampsia, severe: QUALIFIERS: Trimester: unspecified trimester Qualified Code(s): O 14.10 - Severe pre-eclampsia, unspecified trimester COMMENT: BP stable pp PLAN: Plan s/p PPD # 1 1. routine post delivery care 2. breast feeding- support given 3. rh positive 4. rubella immune
[2023-11-21 14:00] VITALS: BP 164/79; PULSE 90; RESP 16; O2SAT 97
--- NOTE | 2023-11-21 14:22 | CASEMGMT ---
Social Work Assessment Labor and Delivery Unit Patient Address:[place] [address] Phone number: [phone] Date of Referral: 11/18/23 Time of Referral:? 1342 Referred By: Latasha Joshua Date of Intervention: ??11/21/23 Time of Intervention:? 7694 Reason for Referral:? mother is recovering alcoholic Sw completed chart review and acknowledged social work consult due to mother of baby having a mother with history of alcoholism. Sw presented to bedside and introduced self to mother of baby (ANGELA- Nathalia) and father of baby (KWADWO- Ga). Sw explained sw role to parents and completed psychosocial assessment. History obtained from: medical records, MOB and FOB Household composition: Currently residing in the home is ANGELA, KWADWO, their two older daughters (Shirley- 8 y/o and Taylor- 15 y/o) and baby when ready for discharge. Parents deny of issues or problems with their home right now. Patient's parent/guardian status:? ?ANGELA states that she and KWADWO have been together for 12 years old, they were introduced to each other by mutual friends. No concerns reported of domestic violence or intimate partner violence. Medical History: ANGELA is 32 year old female who is 3, para 2- now 3 following labor and delivery. ANGELA received routine care during with [place]. ANGELA presented to hospital on 11/19/23 for induction of labor and delivered baby on 11/20/23 via vaginal delivery. Baby boy, named Abdullahi Jenkins was born weighing 7lb 13oz with apgars of 8 and 8 at one and five minutes of life, respectfully. Baby did require admission to [facility] due to hypoglycemia. Baby is doing well and making progress with feeds. Educational Status:? Both parents graduated from high school, no issues with reading, learning or comprehension. Financial Status: Both parents are gainfully employed outside of the home. 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 KWADWO works for [employer] as a security lead. Infant Supplies:??Parents have obtained all necessary baby supplies, including: car seat, safe sleep space, clothes, diapers and wipes. Childcare/Caregiver(s):? ANGELA reports that during her maternity leave she will be the primary caregiver along with FOB when he is not working. MOB states that when both parents have returned to work they have a friend who will provide childcare. Transportation:?? Both parents have their drivers license, and reliable means of transportation. No barriers at this time. Programs/Agencies Involved: ??Parents are not connected to any community resources that help them financially. ? Children Services/Legal Issues:??? No history of children services involvement, no issues or concerns warranting referral at this time. Behavioral Health Issues: ??Mental Health History:?FOB denies mental health diagnoses. ANGELA states that she has been diagnosed with anxiety and depression. ANGELA denies experiencing any symptoms of baby blues or depression or anxiety after the delivery of her two other babies. ?ANGELA is prescribed zoloft and states that she has not taken any zoloft since her admission to labor and delivery. ? Substance Use History:??ANGELA denies substance use prior to or during . Family History:??ANGELA admits that her mother has been in recovery from alcohol for 13-14 years. ??? Drug Screens: ?No drug screens observed during chart review. ? Family/Social Stressors:? Parents deny any issues or concerns at this time. Support Systems: ANGELA states that her parents and FOB are her biggest supports. Depression/Shaken Baby/Safe Sleeping:? Cami educated parents on signs and symptoms of baby blues and depression and anxiety. ANGELA states that she is aware of signs and symptoms to be on the lookout for. MOB denies experiencing symptoms in the past. FOB states that if MOB would experience he would be able to recognize this and would know how to help and support her. Cami educated parents on shaken baby prevention and ABCs of safe sleep space. Parents express understanding. ASSESSMENT:? MOB and baby are admitted following labor and delivery of . MOB has history of anxiety and depression, and mother with history of alcoholism- currently in recovery for 13-14 years. baby admitted to Special Care Nurs[facility] due to hypoglycemia. Parents observed to have good and supportive relationship. Baby making medical progress but not ready for discharge yet at this time. Parents have obtained all necessary baby supplies and have natural supports in place. PLAN:? MOB and baby to be discharged when medically ready. ?No other services requested or indicated. Ronnell Perkins, DENTAL INSTRUMENT MAKER, LABELING SPECIALIST
[2023-11-21] MEDS: Senna/Docusate Sodium 1 Tablet PO (14:49)
[2023-11-21] MEDS: Acetaminophen 500 MG Tablet 1000 MG PO (18:51)
[2023-11-21 21:58] VITALS: BP 129/69; PULSE 84; RESP 16; TEMP 36.4; O2SAT 97
[2023-11-22 04:08] VITALS: BP 148/74; PULSE 76; RESP 16; TEMP 36.3; O2SAT 99
[2023-11-22] MEDS: Naproxen 500 MG Tablet PO ×2 (04:11→12:57)
[2023-11-22 06:03] VITALS: BP 142/72
[2023-11-22] MEDS: Labetalol 200 MG Tablet 400 MG PO ×2 (06:04→13:50)
[2023-11-22 07:58] VITALS: BP 128/77; PULSE 84; RESP 16; TEMP 36.6
[2023-11-22] MEDS: Senna/Docusate Sodium 1 Tablet PO (08:04)
[2023-11-22] MEDS: Acetaminophen 500 MG Tablet 1000 MG PO (08:04)
[2023-11-22] MEDS: NIFEdipine 30 MG Tablet PO (09:37)
[2023-11-22] MEDS: Sertraline 50 MG Tablet PO (09:37)
[2023-11-22 12:59] VITALS: BP 144/71; PULSE 85; RESP 16; TEMP 36.8; O2SAT 97
--- NOTE | 2023-11-22 13:28 | PN.OBGYN_ITS ---
Subjective Subjective Patient doing well without complaints. Tolerating PO. Ambulating and voiding without difficulty. feeding well. Denies chest pain, shortness of breath, calf pain/swelling, fevers, chills, lightheadedness. Objective Data Objective Data Vital Signs: Vital Signs Temp Pulse Resp BP Pulse Ox O2 Del Method 98.2 F 85 16 144/71 H 97 Room Air 11/22/23 12:59 11/22/23 12:59 11/22/23 12:59 11/22/23 12:59 11/22/23 12:59 11/22/23 04:08 Oxygen Delivery Method Room Air Weight: 251 lb 8 oz Body Mass Index (BMI) 41.8 Intake & Output: Intake and Output for Last 24 Hours 11/20/23 11/21/23 11/22/23 23:59 23:59 23:59 Intake Total 2126.38 / 2126.38 Output Total 1135 / 1135 Balance 991.38 / 991.38 Lab / Micro Data 11/20/23 06:48 11/20/23 06:48 ROS Constitutional Constitutional: Reports systems reviewed and no addt'l complaints, except as documented Cardiovascular Cardiovascular: Reports systems reviewed and no addt'l complaints, except as documented Respiratory/Chest Respiratory/Chest: Reports systems reviewed and no addt'l complaints, except as documented Gastrointestinal Gastrointestinal: Reports systems reviewed and no addt'l complaints, except as documented Physical Exam Const alert, oriented x3 and no apparent distress HEENT Head and Scalp: atraumatic Resp normal respiratory effort GI soft to palpation and non-tender Bimanual Exam - Vag & Uterus: uterus non-tender Uterus Palpation: uterus fundus firm (below Umbilicus) Assessment & Plan (1) Vaginal delivery: COMMENT: SM IOL Severe preeclampsia chtn gdma2 uncontrolled 37 boy lore (2) Preeclampsia, severe: QUALIFIERS: Trimester: unspecified trimester Qualified Code(s): O 14.10 - Severe pre-eclampsia, unspecified trimester COMMENT: labetalol 400 TID, added procardia 30 daily PLAN: Plan s/p PPD # 2 1. routine post delivery care 2. breast feeding- support given 3. rh positive 4. rubella immune
--- NOTE | 2023-11-27 14:02 | NURSING ---
Follow up phone call made, no answer, left voicemail
--- NOTE | 2023-11-28 07:11 | PCM.DC.SUM ---
Providers Date of Admission: 11/18/23 Primary Care Physician: Dr. Katie Jones DO Reason For Visit: VAG Diagnosis Discharge Diagnosis (1) Vaginal delivery: Status: Acute Code(s): O80 - Encounter for full-term uncomplicated delivery (2) Preeclampsia, severe: Status: Acute Code(s): O14.10 - Severe pre-eclampsia, unspecified trimester Qualifiers: Trimester: unspecified trimester Qualified Code(s): O14.10 - Severe pre-eclampsia, unspecified trimester Plan s/p PPD # 2 1. routine post delivery care 2. breast feeding- support given 3. rh positive 4. rubella immune Medications at Discharge Home Medications omeprazole 20 mg capsule,delayed release 40 mg PO QHS 05/25/20 aspirin 81 mg tablet,delayed release (Adult Aspirin Regimen) 81 mg PO DAILY #30 tabs 05/10/23 docusate sodium 100 mg capsule (Colace) 100 mg PO DAILY 05/10/23 cholecalciferol (vitamin D3) 1,250 mcg (50,000 unit) capsule 1,250 mcg PO QWEEK 08/09/23 blood sugar diagnostic (Blood Glucose Test strips) #120 ea 08/24/23 blood-glucose meter #1 ea 08/24/23 lancets #200 ea 08/24/23 mecobalamin (vitamin B12) 1,000 mcg chewable tablet 1,000 mcg PO DAILY 08/27/23 vits 75-iron 28 mg-folic acid 800 mcg-omega3 440 mg oral pack (One Daily ) 1 pkg PO DAILY 08/27/23 labetalol 200 mg tablet 400 mg (2 x 200 mg) PO TID hypertensio 30 days #120 tabs 10/30/23 sertraline 50 mg tablet 50 mg PO DAILY 11/09/23 insulin NPH isoph U-100 human 100 unit/mL (3 mL) subcutaneous pen (Humulin N NPH U-100 Insulin KwikPen) 30 unit subcut QHS 11/14/23 insulin regular human 100 unit/mL injection solution 20 unit subcut .breakfast GDM 11/18/23 nifedipine 30 mg tablet,extended release 24 hr (Procardia XL) 30 mg PO DAILY ##30 11/22/23 nifedipine 30 mg tablet,extended release 24 hr (Procardia XL) 30 mg PO DAILY ##30 11/22/23 Hospital Course Summary of Care Provided Hospital Course: iol secondary to pree, started on magnesium, delivered routine recovery monitored bp stable for dc to home PPD 2 Weight / BMI Weight Weight: 251 lb 8 oz Body Mass Index (BMI) 41.8 ABG / Lab / Microbiology Data 11/20/23 06:48 11/20/23 06:48 D/C Instructions Discharge Diet: No restrictions May resume sexual activity in: 4-6 weeks Call your doctor if your incision/area has: Continuous Slow Oozing, Sudden Increased Bleeding, Increased Pain/ Swelling, Increased Redness and Foul Smelling Discharge Please Follow Up With: Latasha Joshua MD When: Call [phone] to make an appointment with your doctor in 6 weeks. If you had elevated blood pressure or 4th degree laceration, you will need to be seen in 2 weeks. Meaningful Use Info Meaningful Use Meaningful Use Diagnoses (Choose all that apply): None applicable Ischemic Stroke Statin Dosing Therapy Reference: STATIN DOSE THERAPY REFERENCE: * Patients > 75 years receive moderate or high dose statin therapy. * Patients 75 years or YOUNGER should receive HIGH intensity statin dose unless contraindicated. You will be required to document reason for non-treatment if statin daily dose does not meet guidelines. HIGH DOSE STATIN THERAPY DAILY Atorvastatin > than or = to 40 mg Rosuvastatin > than or = to 20 mg Amlodipine + Atorvastatin > than or = to 2.5/40 mg Ezetimibe + Simvastatin 10/80 mg Simvastatin 80mg Discharge Plan Admission Admit Date/Time: 11/18/23 12:25 Attending Provider: Latasha Joshua Primary Care Provider: Katie Jones Discharge Orders/Prescriptions Prescriptions: New nifedipine [Procardia XL] 30 mg tablet extended release 24hr 30 mg PO DAILY Qty: 30 2RF No Action omeprazole 20 mg capsule,delayed release(DR/EC) 40 mg PO QHS docusate sodium [Colace] 100 mg capsule 100 mg PO DAILY aspirin [Adult Aspirin Regimen] 81 mg tablet,delayed release (DR/EC) 81 mg PO DAILY Qty: 30 6RF cholecalciferol (vitamin D3) 1,250 mcg (50,000 unit) capsule 1,250 mcg PO QWEEK One Daily 28-800-440 mg-mcg-mg combo pack 1 pkg PO DAILY mecobalamin (vitamin B12) 1,000 mcg tablet,chewable 1,000 mcg PO DAILY sertraline 50 mg tablet 50 mg PO DAILY labetalol 200 mg tablet 400 mg PO TID 30 Days Qty: 120 4RF Humulin N NPH Insulin KwikPen 100 unit/mL (3 mL) insulin pen 30 unit subcut QHS Patient Comments: also taking 20 units in am started on October 26 and keep 28 units at bedtime Rx Instructions: take 20 units with breakfast and 30 units at bedtime. insulin regular human 100 unit/mL solution 20 unit subcut .breakfast Rx Instructions: increase by 2 units every morning if 2 hour PPG after breakfast over 120 (DME) Blood Glucose Test Strip See Rx Instructions .MEDSUPPLY Qty: 120 5RF Rx Instructions: As directed-fasting & 2 hr post meals (DME) blood-glucose meter Misc See Rx Instructions .MEDSUPPLY Qty: 1 0RF Rx Instructions: As directed- Test fasting and 2 hours after meals (DME) lancets Misc See Rx Instructions .MEDSUPPLY Qty: 200 5RF Rx Instructions: As directed-fasting & 2 hr post meals nifedipine [Procardia XL] 30 mg tablet extended release 24hr 30 mg PO DAILY Qty: 30 2RF Referrals / Follow Up: Katie Jones, [Primary Care Provider] - Disposition Disposition (needs filled in before D/C Order can be placed): Home, Self Care
== END 2023-11-22 15:50 | disposition home or self-care (01) | DRG 807 ==
LOC: WPOUT 12:41 → WP 13:14
PROVIDERS: Registered Nurse; Admitting Provider Obstetrics & Gynecology; PCP Internal Medicine; Visit Provider Obstetrics & Gynecology
DX: O11.4 Pre-existing hypertension with pre-eclampsia, complicating childbirth (principal); Z37.0 Single live birth; O24.424 Gestational diabetes mellitus in childbirth, insulin controlled; F41.9 Anxiety disorder, unspecified; M51.26 Other intervertebral disc displacement, lumbar region; O70.0 First degree perineal laceration during delivery; R87.619 Unspecified abnormal cytological findings in specimens from cervix uteri; Z79.82 Long term (current) use of aspirin; Z87.891 Personal history of nicotine dependence; O99.824 Streptococcus B carrier state complicating childbirth; Z3A.36 36 weeks gestation of pregnancy; O99.892 Other specified diseases and conditions complicating childbirth; O99.344 Other mental disorders complicating childbirth
CPT/HCPCS: 59025; 59050; 76815; 80053; 82565; 82570; 82962; 84156; 84450; 84460; 84550; 85025; 85027; 86780; 86850; 86900; 86901; 99221; J7120; A4216; G0378; J2405

== ENCOUNTER → 2024-01-10 | Outpatient (CLI) | payer OTHER, SELFPAY ==
[2024-01-15 15:09] LABS: HPV APTIMA, High Risk Negative (Negative)
== END | disposition home or self-care (01) ==
PROVIDERS: PCP Internal Medicine; Visit Provider Obstetrics & Gynecology
DX: Z12.4 Encounter for screening for malignant neoplasm of cervix (principal)
CPT/HCPCS: 87624; 88175; G0145

== ENCOUNTER 2024-01-29 09:56 | Day surgery (SDC) | payer OTHER, SELFPAY ==
[2024-01-29] VITALS (10 sets, daily range): BP systolic 129–145; BP diastolic 84–97; PULSE 62–88; RESP 16–22; TEMP 36.1–36.6; O2SAT 92–98; BMI 36.3
--- NOTE | 2024-01-29 09:05 | HP.PCM_ITS ---
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 Is patient in pain?: No Allergies minocycline Allergy (Verified 01/22/24 16:35) otherhydrocodone (From Vicodin) Adverse Reaction (Verified 01/22/24 16:35) Nausea/Vom/Diarrheametoclopramide (From Reglan) Adverse Reaction (Verified 16:35) Otherpromethazine (From Phenergan) Adverse Reaction (Verified 01/22/24 16:35) Other Medications ?Medication ?Instructions ?Recorded ?Confirmed ?Type omeprazole 20 mg capsule,delayed 40 mg PO QHS 05/25/20 01/22/24 History release docusate sodium 100 mg capsule 100 mg PO DAILY 05/10/23 01/22/24 History (Colace) cholecalciferol (vitamin D3) 1,250 1,250 mcg PO QWEEK 08/09/23 01/22/24 History mcg (50,000 unit) capsule mecobalamin (vitamin B12) 1,000 1,000 mcg PO DAILY 08/27/23 01/22/24 History mcg chewable tablet vits 75-iron 28 mg-folic 1 pkg PO DAILY 08/27/23 01/22/24 History acid 800 mcg-omega3 440 mg oral pack (One Daily ) sertraline 50 mg tablet 50 mg PO DAILY 11/09/23 01/22/24 History labetalol 200 mg tablet 200 mg PO BID hypertensio 01/21/24 01/22/24 History Post menopausal: No Patient : No : No [facility] Medical History (Updated 01/22/24 @ 08:39 by Concepcion Wilson LPN) Mother currently breast-feeding Anemia Restless legs CPAP (continuous positive airway pressure) dependence Former smoker Cardiology follow-up encounter Vaginal delivery Family history of hearing loss at age younger than 7 years Pre-eclampsia Chronic hypertension Gestational diabetes ILA (obstructive sleep apnea) Menorrhagia with regular cycle Dysmenorrhea Rectal pain Depression Anxiety Fatty liver Back pain History of IBS Gastric reflux Hypertension Hx of fracture of finger Migraines PCOS (polycystic ovarian syndrome) Surgical History History of open reduction and internal fixation (ORIF) procedure History of lumbar discectomy s/p polyp removal Family History (Updated 11/18/23 @ 14:03 by Clemencia Clinton) Mother HypertensionGrandfather Prostate cancerSister Colon cancerOther Ovarian cancer Social History adopted: No household members: spouse and children number of children: 2 current occupational status: employed current occupation: [employer] current occupational exposures/hazards: No pets and animals: Yes pets and animals: dog(s) history of recent travel: No sexually active: Yes Smoking Status: Former smoker alcohol intake: current alcohol intake frequency: holidays/special occasions o nly substance use type: does not use caffeine: Yes what type of physical activity do you participate in: weight training frequency: 1-2 times per week seatbelt use: always do you feel safe at home: Yes additional social history: - [place] Pre-op BS Details: NIKKI KENT is a 33 year old who presents for proep visit desires sterilization. no changes since , doing well. Female Reproductive History Menopausal Symptoms: No night sweats History 3 Elective abortions Hx Para 2 Spontaneous abortions Hx # Term Pregnancies Ectopic pregnancies Hx # Pregnancies Multiple births # of living children 3 Past Pregnancies Del. Date Name GA/Weeks Outcome Route Bth Weight Infant Gen Labor Lgth Anesthesia Del Locatn Provider FOB 03/01/08 Madelaine 37 live - full term 7lbs ?oz Female epidural [facility] Dr. Ron Rainey 01/12/15 Shirley 37 live - full term 7lbs 12oz Female epidural [facility] Dr. Joseph Koroma 11/20/23 Abdullahi 37 live - full term NS VD [facility] Marcanthony Delivery Date: 03/01/08 Last Updated by: Maribeth Rider Gestational hypertension Delivery Date: 01/12/15 Last Updated by: Maribeth Rider Gestational hypertension Delivery Date: 11/20/23 Last Updated by: Terra Kumar IOL severe pree gdma2 ROS Const Constitutional: Denies fatigue, night sweats, weight gain or weight loss ENT ENT: Reports system reviewed and no additional complaints, except as documented Cardio Card: Denies chest pain Resp Resp: Denies cough or dyspnea GI GI: Reports as per HPI; Denies abdominal pain, constipation, nausea or vomiting : Denies nipple discharge, urinary frequency, urinary incontinence, urinary hesitancy, urinary urgency, vaginal discharge, vaginal dryness, vaginal odor or vaginal pruritus Musc Musc: Denies arthralgias, back pain or muscle weakness Skin Skin/Breast: Denies alopecia, change in hair, dry skin, breast mass, breast pain, breast skin changes or nipple discharge Neuro Neuro: Reports system reviewed and no additional complaints, except as documented Psych Psych: Reports system reviewed and no additional complaints, except as documented Endo Endo: Denies cold intolerance, excessive sweating, heat intolerance or polydipsia Rip/Lymph Hematologic/Lymphatic: Denies easy bleeding, Denies easy bruising and Denies lymphadenopathy Exam Const General: cooperative, healthy appearing, comfortable and no acute distress Orientation: alert HENMT Head: normal to inspection and normocephalic Ears: hearing grossly normal bilaterally and external ears normal Nose: external nose normal and nares normal Face and sinus: normal facial exam Neck Neck: normal visual inspection and no lymphadenopathy Thyroid: thyroid normal Chest Chest palpation & inspection: normal inspection of the chest Resp Effort & Inspection: normal respiratory effort Auscultation: clear to auscultation bilaterally Cardio Rate: regular rate Rhythm: regular rhythm Heart Sounds: S1 normal and S2 normal GI Inspection: normal to inspection and non-distended Palpation: soft and no hepatosplenomegaly Musc Other: gross motor intact no deficits, full bilateral strength Skin General: no rashes or lesions noted Neuro General: patient alert, patient awake, moves all extremities and no focal motor deficits Motor: muscle tone normal throughout Extrem General: normal to inspection and no pedal edema Psych Appearance: grossly normal Mental Status: mental status grossly normal Affect: normal affect Speech and Movement: speech and movement normal Coding Level of Care Code No Charge Diagnoses Sterilization Z30.2 Assessment and Plan Assessment and Plan (1) Sterilization: Status: Acute Orders: Orders Type & Screen 01/22/24 Z01.818 - Encounter for other preprocedural examination, Z30.2 - Encounter for sterilization Plan After discussing the patient's diagnosis and treatment plan options, patient wishes to proceed with surgical management. I have discussed with the patient the risks, benefits, and alternatives of the procedure which include but are not limited to risks of anesthesia, bleeding, infection, possible damage to bowel, bladder, or surrounding vasculature which could lead to additional surgery to evaluate any complications. Patient agrees to procedure and wishes to proceed. ACOG/uptodate references given for additional information regarding procedure. UPDATE- I have seen the patient and performed any clinically relevant updates to the history and physical exam. Latasha Joshua MD
[2024-01-29 10:15] LABS: Internal QC Validated? YES +Cl - CLEAR BKGD; Pregnancy, Urine Negative Negative
--- NOTE | 2024-01-29 10:23 | PRE.ANES_ITS ---
ASA Classification* ASA Classification ASA Classification: 3 Assessment & Plan Anesthesia* Anesthesia Assessment Anesthesia Assessment: Discussed sedation and/or anesthesia options, risks, benefits, and alternatives with patient/parents/legal guardian/POA. Questions invited. The patient/parents/legal guardian/POA seems to understand and agrees to proceed with anesthesia plan. Reviewed the physical assessment, medical history, allergy history and patient home medications list prior to surgery/procedure/anesthetic and documented any changes. Performed airway and anesthesia risk assessments. Anesthesia Type Anesthesia Type: General (see written pre anesthesia record for full assessment) Anesthesia Focused Assessment* Temperature: 97 F Pulse Rate: 80 Blood Pressure: 141/91 Respiratory Rate: 16 Pulse Ox: 95 Airway Assessment Mouth opens: >3 cm Mallampati Score: II Focused Labs Anesthesia Preop lab: CBC WBC 16.4 K/mm3 (4.4-11.0) H 11/20/23 06:48 RBC 4.02 M/mm3 (4.2-5.4) L 11/20/23 06:48 Hgb 11.2 g/dL (12.0-15.0) L 11/20/23 06:48 Hct 34.4 % (37-47) L 11/20/23 06:48 Plt Count 305 K/mm3 (150-450) 11/20/23 06:48 CHEMISTRY Potassium 3.9 mmol/L (3.5-5.1) 11/20/23 06:48 Sodium 134 mmol/L (136-145) L 11/20/23 06:48 Magnesium 2.2 mg/dL (1.6-2.6) 05/09/21 16:48 BUN 14 mg/dL (7-18) 11/20/23 06:48 Creatinine 0.78 mg/dL (0.55-1.02) 11/20/23 06:48 Glucose [facility] 86 mg/dL (70-110) 06/04/23 14:13 Glucose 109 mg/dL (74-106) H 11/20/23 06:48 POC Glucose 110 mg/dL (74-106) H 11/20/23 06:12 TSH 1.56 uIU/mL (0.358-3.74) 09/02/21 12:01 COAG PT 13.5 SECONDS (11.7-14.9) 01/11/15 16:12 HCG, Quant < 1 mIU/mL (1-3) 01/22/19 17:32 Urine Test Negative Negative 01/29/24 10:05 Pre-Assessment Diagnosis/Proposed Procedure Planned Operative Procedure(s): LAP SALPINGECTOMY BILAT Anesthesia History Anesthesia History - community relations officer: Anesthesia History - community relations officer Hx Hospitalization No 01/21/24 15:02 Any Problems With Anesthesia No 01/21/24 15:02 Cholinesterase deficiency No 01/21/24 15:02 You/Your Family Experience No 01/21/24 15:02 fever (hyperthermia) with Relationship Recent Exposure to Contagious No 08/27/23 08:27 Disease Does patient have nerve No 01/21/24 15:02 stimulator Patient instructed to have device shut off --Does patient have Pacemaker No 01/29/24 10:16 or ICD? When Was Last Pacemaker Check QUESTION #4 FULL TEXT: You/Your Family Experience fever (hyperthermia) with Anesthesia Last Oral Intake Last Oral intake: Last Oral Intake NPO since 21:00 01/29/24 10:16 Meds taken in AM with sips of No 01/29/24 10:16 water? Meds patient instructed to take am of surgery PONV PONV - community relations officer: PONV - community relations officer Female Yes 01/21/24 15:02 HX of Motion Sickness No 01/21/24 15:02 HX of N/V After Surgery No 01/21/24 15:02 Non-Smoker Yes 01/21/24 15:02 Duration of Surgery greater No 01/21/24 15:02 than 60 minutes Number of Risk Factors 2 01/21/24 15:02 PONV Score Moderate Risk 01/21/24 15:02 Height & Weight Height & Weight: Anesthesia: Height & Weight Height 5 ft 5 in 01/29/24 10:16 Weight: 99 kg 01/29/24 10:16 Body Mass Index (BMI) 36.3 01/29/24 10:16 Respiratory Assessment Respiratory Assessment - community relations officer: Respiratory Tract Infection Hx - community relations officer Hx Respiratory Tract Infection No 01/21/24 15:02 STOP Sleep Apnea STOP Sleep Apnea - community relations officer: STOP Sleep Apnea - community relations officer Hx Hypertension Yes: CONTROLLED WITH MED 01/21/24 15:02 Hx Sleep Apnea Yes 01/21/24 15:02 CPAP Yes: NONCOMPLIANT 01/21/24 15:02 BIPAP No 01/21/24 15:02 Do you snore loudly (louder than talking or can be heard Do you often feel tired/ fatigued/ sleepy during daytime? Has anyone observed you stop breathing during sleep? STOP Results Positive 01/21/24 15:02 QUESTION #5 FULL TEXT : Do you snore loudly (louder than talking or can be heard through closed doors)? Tobacco Use History Tobacco Use History - community relations officer: Tobacco Use History - community relations officer Tobacco Use Smoking Status Former smoker 01/21/24 15:02 Hx Tobacco Use No 01/21/24 15:02 Years Smoking Packs Smoked per Day Smoking Cessation Date was Yes - quit smoking within 15 01/21/24 15:02 within the last 15 years years Hx Smoking Cessation Date 07/02/21 01/21/24 15:02 Hx Smoking Cessation Counseling Hematologic Medial History Hematologic Hx - community relations officer: Hematologic Medical Hx - insurance attorney Hx of Blood Transfusion No 01/21/24 15:02 Hx of Transfusion in last 3 No 01/21/24 15:02 Months Date of Last Transfusion (if within last 3 months) Ever experience any problems No 01/21/24 15:02 with transfusion(s)? Specify any problems Hx of Preganancy in last 3 Yes 01/21/24 15:02 Months Nurse Filling Out Transfusion DSCHRIBER 01/21/24 15:02 & Questions: Date: 01/21/24 01/21/24 15:02 Time: 15:04 01/21/24 15:02 Patient unable to answer at this time (ie. confused, unrespo /Reproduction History /Reproductive History - community relations officer: /Reproductive Hx- community relations officer Hx Now No 01/21/24 15:02 Gestational Age (in weeks): EDC: Hx Hx Para Hx Section SAB No 01/22/24 16:36 Active Medications Active Medications: Current Medications Generic Name Dose Route Start Last Admin Trade Name Freq PRN Reason Stop Dose Admin Lactated Ringer's 1,000 mls @ 15 mls/hr 01/29/24 10:15 IV .Q48H CASA PFSH Medical History Mother currently breast-feeding Anemia Restless legs CPAP (continuous positive airway pressure) dependence Former smoker Cardiology follow-up encounter Vaginal delivery Family history of hearing loss at age younger than 7 years Pre-eclampsia Chronic hypertension Gestational diabetes ILA (obstructive sleep apnea) Menorrhagia with regular cycle Dysmenorrhea Rectal pain Depression Anxiety Fatty liver Back pain History of IBS Gastric reflux Hypertension Hx of fracture of finger Migraines PCOS (polycystic ovarian syndrome) Home Medications ?Medication ?Instructions ?Recorded ?Last Taken ?Type omeprazole 20 mg capsule,delayed 40 mg PO QHS 05/25/20 01/28/24 History release docusate sodium 100 mg capsule 100 mg PO DAILY 05/10/23 01/28/24 History (Colace) cholecalciferol (vitamin D3) 1,250 1,250 mcg PO QWEEK 08/09/23 01/25/24 History mcg (50,000 unit) capsule mecobalamin (vitamin B12) 1,000 1,000 mcg PO DAILY 08/27/23 01/28/24 History mcg chewable tablet vits 75-iron 28 mg-folic 1 pkg PO DAILY 08/27/23 01/28/24 History acid 800 mcg-omega3 440 mg oral pack (One Daily ) sertraline 50 mg tablet 50 mg PO DAILY 11/09/23 01/28/24 History labetalol 200 mg tablet 200 mg PO BID hypertensio 01/21/24 01/29/24 History Allergy/AdvReac Type Severity Reaction Status Date / Time minocycline Allergy other Verified 01/29/24 10:15 hydrocodone (From Vicodin) AdvReac Nausea/Vom/ Verified 01/29/24 10:15 Diarrhea metoclopramide (From Reglan) AdvReac Other Verified 01/29/24 10:15 promethazine (From Phenergan) AdvReac Other Verified 01/29/24 10:15 Family History Mother Hypertension Grandfather Prostate cancer Sister Colon cancer Other Ovarian cancer Surgical History History of open reduction and internal fixation (ORIF) procedure History of lumbar discectomy s/p polyp removal Social History adopted: No household members: spouse and children number of children: 2 current occupational status: employed current occupation: [employer] current occupational exposures/hazards: No pets and animals: Yes pets and animals: dog(s) history of recent travel: No sexually active: Yes Smoking Status: Former smoker alcohol intake: current alcohol intake frequency: holidays/special occasions only substance use type: does not use caffeine: Yes what type of physical activity do you participate in: weight training frequency: 1-2 times per week seatbelt use: always do you feel safe at home: Yes additional social history: - [place] Review of Systems (Anesthesia) ROS Narrative System reviewed and no additional complaints, except as documented.
[2024-01-29 10:46] LABS: Mean Corp Hgb Conc 33.3 g/dL (32-36); Mean Corpuscular Hgb 28.4 pg (27.0-32.0); Mean Corpuscular Volume 85.3 fL (81-99); Mean Platelet Vol. 10.9 fl (6.2-12.0); Platelet Count 332 K/mm3 (150-450); RBC Distribution Width CV 14.4 % (11.6-14.6); RBC Distribution Width SD 44.2 fl (35.1-43.9); Red Blood Count 4.57 M/mm3 (4.2-5.4); White Blood Count 10.2 K/mm3 (4.4-11.0)
--- NOTE | 2024-01-29 11:30 | FALS_PTH ---
PATIENT: NIKKI KENT LOC: [facility] [place] U#:[id number] AGE/SX: 33/F ROOM: RE01/29/[address]: Dr. Latasha Joshua MD : 1990 BED: DIS: 01/29/2024 SPEC #: [id number] RECD: 01/29/24 18:26 STATUS: TAYLOR BULL #: [id number] FEI: 01/29/24 11:[address]: Latasha Joshua DEPT: SURGICAL PATHOLOGY RECD BY: Micaela Mobley ENTERED: 01/30/24 08:14 SP TYPE: FALL TUBES OTHR DR: Dr. Katie Jones, DO Tissues: Fallopian tube Procedures: Surgery Specimen Level II HEADER OPERATION: Laparoscopic salpingectomy PRE-OP DIAGNOSIS: Sterilization TISSUE SUBMITTED: Bilateral fallopian tubes MICROSCOPIC DIAGNOSIS Bilateral fallopian tubes, bilateral salpingectomy: Bilateral fallopian tubes, no pathologic diagnosis. A paratubal cyst. : 01/31/2024 MICROSCOPIC DESCRIPTION Slides are reviewed. GROSS DESCRIPTION Received in fixative is one container labeled with the patient's name and designated bilateral fallopian tubes. The specimen consists of two fallopian tubes with an average length of 6.0 cm and has an average diameter of 0.4 cm. Both fallopian tubes have normal fimbriated ends. One fallopian tube contains a paratubal cyst measuring 1.0cm and containing clear fluid. The cyst is present adjacent to the fimbrial end. Gas Well Pumper sections are submitted in two cassettes as follows: 1 - one fallopian tube with paratubal cyst, 2 - the other fallopian tube. / AM: 01/30/2024 TC:5 CPT: 74660 x2
[2024-01-29] MEDS: Bupivacaine 0.25% 30 ML Vial (11:45)
[2024-01-29] MEDS: Cefazolin 2 GM in 0.9% Normal Saline (100mL Bag) 100 ML IV (11:51)
--- NOTE | 2024-01-29 12:20 | PCM.OPRPT ---
Problems Associated Problem List Diagnoses (1) Sterilization: (2) Status post bilateral salpingectomy: Report of Operation Date of Procedure: 01/29/24 Pre-Operative Diagnosis: see problem list Post-Operative Diagnosis: same Surgery/Procedure Performed:: laparoscopic bilateral salpingectomy Description of Surgical Findings:: nl uterus tubes ovaries Surgeon: Latasha Joshua Type of Anesthesia: General and Local Special Medications: floseal Specimen's removed: tubes Drains: none Estimated Blood Loss (mL): 100 Fluids Replaced: crystalloid Description of Procedure: Patient was taken in the operating room and was placed under general anesthesia was prepped and draped in normal sterile fashion in the dorsal lithotomy position. Bladder was drained of clear urine and SCDs were on preoperatively. Uterus was sounded and a uterine manipulator was placed after dilating. Attention was then paid to the abdominal portion of the procedure and the umbilicus was elevated with towel clamps and injected with Marcaine and after a 5 mm incision was made and the Veress needle was entered into the abdomen confirmed to be intra-abdominal with a low opening pressure of less than 5 mmHg. Abdomen was insufflated with CO2 gas and a 5 mm optical trocar was placed under direct visualization. A 5 mm port suprapubically was placed under direct visualization. Uterus was well visualized and uterine perforation anteriorly was noted, baloon deflated and removed. floseal placed over the site and hemostasis noted. bilateral fallopian tubes identified and bilateral tubes were elevated and transecting across the mesosalpinx and the attachment to the uterine corpus bilaterally the tubes were removed without complication. Excellent hemostasis was noted. Fallopian tubes were removed through the lower port site without complication. Liver and upper abdomen were visualized notably within normal limits and no other gross abnormalities were seen in the abdomen. gas desufflated and then reinsufflated and hemostasis still noted. All instruments removed from the abdomen after gas was desufflated. 75 cc clear urine confirmed at the end of the procedure. Port sites were closed with 3-0 Monocryl Steri's and op sites were applied. All instruments removed from the vagina and patient was awoken and taken recovery in stable condition. Grafts/Implants Used: none Complications none Admit VTE Documentation VTE Present on Admission: No VTE Mechan Device Prophylaxis: SCD's Multi Select Codes Urinary/Genital Urinary/Genital CPT Codes: 63856 Laproscopic BS/O
--- NOTE | 2024-01-29 12:23 | PCM.DC ---
Discharge Instructions Diet Discharge Diet: No restrictions Activity Discharge Activity: Return to Normal Activity, May Not Drive (for 2 weeks or while taking narcotic pain meds.), May Shower and May Take a Tub Bath (in 7 days) May resume sexual activity in: 1 week Weight Bearing Status: Full weight bearing Dressing / Incision Call your doctor if your incision/area has: Continuous Slow Oozing, Sudden Increased Bleeding, Increased Pain/ Swelling, Increased Redness and Foul Smelling Discharge Call your doctor if you observe: Fever of 101 or Higher, Using more than 1 pad per hour, Shortness of breath, Chest pain and Uncontrolled pain Suture Line Care: Avoid Pulling/Pushing and Avoid Pinching/Bending Remove Dressing in: 1 week (if present) Cleanse incision/area with: Soap & Water and Keep Dressing Clean & Dry Follow Up Care When: Call to make an appointment with your doctor for a fu/incision check in 1-2 weeks. Test Results: Test results from this visit will be discussed in further detail at your follow-up appointment, if applicable. Discharge Plan Admission Attending Provider: Latasha Joshua Primary Care Provider: Katie Jones Instructions Print Language: Guamanian Discharge Orders/Prescriptions Prescriptions: No Action omeprazole 20 mg capsule,delayed release(DR/EC) 40 mg PO QHS docusate sodium [Colace] 100 mg capsule 100 mg PO DAILY cholecalciferol (vitamin D3) 1,250 mcg (50,000 unit) capsule 1,250 mcg PO QWEEK One Daily [phone] mg-mcg-mg combo pack 1 pkg PO DAILY mecobalamin (vitamin B12) 1,000 mcg tablet,chewable 1,000 mcg PO DAILY sertraline 50 mg tablet 50 mg PO DAILY labetalol 200 mg tablet 200 mg PO BID Referrals / Follow Up: Katie Jones, [Primary Care Provider] - Disposition Disposition (needs filled in before D/C Order can be placed): Home, Self Care
--- NOTE | 2024-01-29 12:27 | PCM.POST.ANE ---
Anesthesia: Postop Eval I Current Vital Signs Temperature: 98 F Pulse Rate: 77 Blood Pressure: 142/90 Respiratory Rate: 22 Pulse Ox: 98 Assessment Airway patent: Yes Spontaneous unlabored respirations: Yes nausea: No Vomiting: No Anesthesia Complication: No Fluid Hydration Crystalloid volume administer (ml): 800 Total IV fluid infused: 800 Progress Note Anesthesia document: Postop Eval 1 completed: Yes
--- NOTE | 2024-01-29 12:51 | POSTOPAN2_ITS ---
Anesthesia Postop Eval I Sum Postop Eval Completion status Anesthesia document: Postop Eval 1 completed: Yes Anesthesia Postop Eval I Summary Anesthesia Postop Eval I Summary: Anesthesia Postop Eval I: Assessment Summary Airway patent Yes 01/29/24 12:27 MILLING PLANER [email or web address].[email or web address] Spontaneous unlabored Yes 01/29/24 12:27 MILLING PLANER OPERATOR.[email or web address] respirations Mental status nausea No 01/29/24 12:27 MILLING PLANER OPERATOR.[email or web address] Vomiting No 01/29/24 12:27 MILLING PLANER OPERATOR.[email or web address] Anesthesia Postop Eval I: Fluid Summary Crystalloid volume administer 800 01/29/24 12:27 MILLING PLANER OPERATOR.CSIR (ml) Colloids volume administered ( ml) Blood Product volume administered (ml) Total IV fluid infused 800 01/29/24 12:27 MILLING PLANER OPERATOR.CSIR Anesthesia Postop Eval I: Summary Notes Anesthesia Complication No 01/29/24 12:27 MILLING PLANER OPERATOR.[email or web address] Anesthesia Complication Comment: Post-operative progress note Anesthesia: Postop Eval II Evaluation Mental status: Awake Pain Level: 0 nausea: No Vomiting: No
--- NOTE | 2024-01-29 12:51 | PCM.POSTANE2 ---
Anesthesia Postop Eval I Sum Postop Eval Completion status Anesthesia document: Postop Eval 1 completed: Yes Anesthesia Postop Eval I Summary Anesthesia Postop Eval I Summary: Anesthesia Postop Eval I: Assessment Summary Airway patent Yes 01/29/24 12:27 SIFTER [email or web address] Spontaneous unlabored Yes 01/29/24 12:27 SIFTER OPERATOR.CSIR respirations Mental status nausea No 01/29/24 12:27 SIFTER OPERATOR.CSIR Vomiting No 01/29/24 12:27 SIFTER OPERATOR.[email or web address] Anesthesia Postop Eval I: Fluid Summary Crystalloid volume administer 800 01/29/24 12:27 SIFTER [email or web address].CSIR (ml) Colloids volume administered ( ml) Blood Product volume administered (ml) Total IV fluid infused 800 01/29/24 12:27 SIFTER OPERATOR.CSIR Anesthesia Postop Eval I: Summary Notes Anesthesia Complication No 01/29/24 12:27 SIFTER OPERATOR.CSIR Anesthesia Complication Comment: Post-operative progress note Anesthesia: Postop Eval II Evaluation Mental status: Awake Pain Level: 0 nausea: No Vomiting: No
[2024-01-29] MEDS: Ketorolac 30 MG/ML Syringe IV (13:07)
== END 2024-01-29 13:45 | disposition home or self-care (01) ==
LOC: SDC 09:57 → AC 09:59
PROVIDERS: Anesthesiology; PCP Internal Medicine; Referring Provider Obstetrics & Gynecology; Visit Provider Obstetrics & Gynecology
PROC: (CPT 58661; principal; 2024-01-29 11:15)
DX: Z30.2 Encounter for sterilization (principal); N83.8 Other noninflammatory disorders of ovary, fallopian tube and broad ligament; I10 Essential (primary) hypertension; G47.33 Obstructive sleep apnea (adult) (pediatric); F41.9 Anxiety disorder, unspecified; F32.A Depression, unspecified; K21.9 Gastro-esophageal reflux disease without esophagitis; Z79.899 Other long term (current) drug therapy; Z87.891 Personal history of nicotine dependence
CPT/HCPCS: 58661; 00840; 81025; 85027; 86850; 86900; 86901; 88302; J7120; J2405

== ENCOUNTER → 2024-02-21 | Outpatient (CLI) | payer OTHER, SELFPAY ==
[2024-02-21 12:35] LABS: Absolute Lymphocyte Count 6.25 X10^3/uL (0.83-4.51); Absolute Neutrophil Count 4.4 X10^3/uL (2.0-7.7); Basophil% 0.9 % (0-1); Eosinophil# 0.17 X10^3/uL; Eosinophils% 1.5 % (0-5); Hemoglobin 12.9 g/dL (12.0-15.0); Lymphocyte # 6.25 X10^3/ul (0.83-4.51); Lymphocyte % 54.2 % (19-41); Mean Corp Hgb Conc 33.1 g/dL (32-36); Mean Corpuscular Hgb 28.2 pg (27.0-32.0); Mean Corpuscular Volume 85.3 fL (81-99); Mean Platelet Vol. 11.1 fl (6.2-12.0); Monocyte# 0.53 X10^3/uL; Monocyte% 4.6 % (0-10); NRBC Flagged by Analyzer 0 % (0-5); Neutrophil # 4.43 X10^3/uL (2.7-7.7); Neutrophil % 38.3 % (47-70); POSITIVE DIFFERENTIAL YES; Platelet Count 409 K/mm3 (150-450); RBC Distribution Width CV 13.9 % (11.6-14.6); RBC Distribution Width SD 43.5 fl (35.1-43.9); Red Blood Count 4.57 M/mm3 (4.2-5.4); White Blood Count 11.5 K/mm3 (4.4-11.0)
[2024-02-21 12:40] LABS: Differential Indicated SCAN CRITERIA MET
[2024-02-21 13:07] LABS: Differential Comment SCANNED
[2024-02-21 13:22] LABS: Vitamin D,25 Hydroxy 51.6 ng/mL
[2024-02-21 13:41] LABS: ALB/GLOB Ratio 0.8 RATIO (0.9-2.4); AST(SGOT) 23 U/L (15-37); Alanine Aminotransfer ALT/SGPT 40 U/L (13-56); Albumin, Serum 3.5 g/dL (3.2-5.0); Alkaline Phosphatase 87 U/L (45-117); Anion Gap 7 (5-15); BUN 14 mg/dL (7-18); Calcium,Total 9.4 mg/dL (8.5-10.1); Chloride 102 mmol/L (98-107); Cholesterol 226 mg/dL (200); Creatinine, Serum 0.78 mg/dL (0.55-1.02); EST Glomerular Filtration Rate 90 mL/min (>60); Est Glom Filt Rate - Afr Amer 109 mL/min (>60); Globulin 4.4 g/dL (2.2-4.2); Glucose 99 mg/dL (74-106); High Density Lipoprotein 52 mg/dL; Potassium 4.1 mmol/L (3.5-5.1); Protein, Total 7.9 g/dL (6.4-8.2); Sodium Level 136 mmol/L (136-145); Thyroid Stim Hormone (TSH) 0.322 uIU/mL (0.358-3.740); Triglycerides 333 mg/dL; Very Low Density Lipoprotein 67 mg/dL (5-40)
--- NOTE | 2024-02-21 17:40 | RAD_ITS ---
INDICATION: LEFT ARM PAIN EXAMINATION/TECHNIQUE: X-RAY - XR Spine Cervical 2 or 3 Views COMPARISON: October 18, 2006 FINDINGS: VERTEBRAE: Preserved vertebral body height. No fracture. No spondylolisthesis. There is mild loss of the normal cervical lordosis, less pronounced than the prior examination. No significant facet arthropathy. DISCS: Disc spaces are maintained. NECK SOFT TISSUES: No prevertebral soft tissue widening. LUNG APICES: Clear. RAD/Cerv Spine 2 or 3 Views IMPRESSION: No evidence of acute fracture or spondylolisthesis. Electronically Signed: Demetra Galindo MD at 16:25 EDT ,
[2024-02-22 10:32] LABS: T4 Free Direct 0.84 ng/dL (0.76-1.46)
== END | disposition home or self-care (01) ==
LOC: POLAB3 12:07 → RAD 17:30
PROVIDERS: PCP Family Medicine Geriatric Medicine; Referring Provider Family Medicine Geriatric Medicine; Visit Provider Family Medicine Geriatric Medicine
DX: M79.602 Pain in left arm (principal); E55.9 Vitamin D deficiency, unspecified; I10 Essential (primary) hypertension; E78.5 Hyperlipidemia, unspecified
CPT/HCPCS: 36415; 72040; 80053; 80061; 82306; 84439; 84443; 84481; 85025

== ENCOUNTER → 2024-05-07 | Outpatient (CLI) | payer OTHER, SELFPAY | END | disposition home or self-care (01) | LOC: POLAB3 16:00 | PROVIDERS: PCP Family Medicine Geriatric Medicine; Visit Provider Family Medicine Geriatric Medicine | DX: R68.83 Chills (without fever) (principal) | CPT/HCPCS: 87631 ==

== ENCOUNTER → 2024-05-22 | Outpatient (CLI) | payer OTHER, SELFPAY ==
[2024-05-22 17:38] LABS: Absolute Lymphocyte Count 5.37 X10^3/uL (0.83-4.51); Absolute Neutrophil Count 6.7 X10^3/uL (2.0-7.7); Basophil# 0.09 X10^3/uL; Basophil% 0.7 % (0-1); Eosinophils% 0.8 % (0-5); Hematocrit 38.4 % (37-47); Hemoglobin 12.9 g/dL (12.0-15.0); Lymphocyte # 5.37 X10^3/ul (0.83-4.51); Lymphocyte % 40.7 % (19-41); Mean Corp Hgb Conc 33.6 g/dL (32-36); Mean Corpuscular Hgb 29.6 pg (27.0-32.0); Mean Corpuscular Volume 88.1 fL (81-99); Mean Platelet Vol. 10.8 fl (6.2-12.0); Monocyte% 6.8 % (0-10); NRBC Flagged by Analyzer 0 % (0-5); Neutrophil # 6.67 X10^3/uL (2.7-7.7); Neutrophil % 50.6 % (47-70); POSITIVE DIFFERENTIAL YES; Platelet Count 383 K/mm3 (150-450); RBC Distribution Width CV 12.6 % (11.6-14.6); RBC Distribution Width SD 40.7 fl (35.1-43.9); Red Blood Count 4.36 M/mm3 (4.2-5.4); White Blood Count 13.2 K/mm3 (4.4-11.0)
[2024-05-22 17:56] LABS: Differential Indicated SCAN CRITERIA MET
[2024-05-22 18:14] LABS: Vitamin D,25 Hydroxy 47.2 ng/mL
[2024-05-22 18:18] LABS: Differential Comment SCANNED
[2024-05-22 18:30] LABS: ALB/GLOB Ratio 0.9 RATIO (0.9-2.4); AST(SGOT) 14 U/L (15-37); Alanine Aminotransfer ALT/SGPT 33 U/L (13-56); Albumin, Serum 3.4 g/dL (3.2-5.0); Alkaline Phosphatase 97 U/L (45-117); Anion Gap 7 (5-15); BUN 14 mg/dL (7-18); Calcium,Total 8.4 mg/dL (8.5-10.1); Chloride 107 mmol/L (98-107); Cholesterol 223 mg/dL (200); Creatinine, Serum 0.87 mg/dL (0.55-1.02); EST Glomerular Filtration Rate 79 mL/min (>60); Est Glom Filt Rate - Afr Amer 95 mL/min (>60); Estradiol 13.7 pg/mL; Follicle Stimulating Hormone 3.9 mIU/mL; Globulin 3.8 g/dL (2.2-4.2); Glucose 111 mg/dL (74-106); High Density Lipoprotein 63 mg/dL; Luteinizing Hormone < 0.2 mIU/mL; Potassium 3.7 mmol/L (3.5-5.1); Protein, Total 7.2 g/dL (6.4-8.2); Sodium Level 137 mmol/L (136-145); Triglycerides 260 mg/dL; Very Low Density Lipoprotein 52 mg/dL (5-40)
[2024-05-23 13:36] LABS: Hemoglobin A1c 5.5 % (3.8-5.6)
== END | disposition home or self-care (01) ==
LOC: POLAB3 17:13
PROVIDERS: PCP Family Medicine Geriatric Medicine; Visit Provider Family Medicine Geriatric Medicine
DX: R73.09 Other abnormal glucose (principal); E78.5 Hyperlipidemia, unspecified; I10 Essential (primary) hypertension; E55.9 Vitamin D deficiency, unspecified; N95.1 Menopausal and female climacteric states; N39.0 Urinary tract infection, site not specified
CPT/HCPCS: 36415; 80053; 80061; 82306; 82670; 83001; 83002; 83036; 84443; 85025; 87077; 87086; 87088; 87186

== ENCOUNTER → 2024-05-27 | Outpatient (CLI) | payer OTHER, SELFPAY | END | disposition home or self-care (01) | LOC: CT 07:18 | PROVIDERS: PCP Family Medicine Geriatric Medicine; Referring Provider Family Medicine Geriatric Medicine; Visit Provider Family Medicine Geriatric Medicine | DX: N20.0 Calculus of kidney (principal) | CPT/HCPCS: 74176 ==

== ENCOUNTER → 2024-06-17 | Outpatient (CLI) | payer OTHER, SELFPAY ==
--- NOTE | 2024-06-17 07:47 | US_ITS ---
STUDY: ABDOMINAL ULTRASOUND - RIGHT UPPER QUADRANT; ELASTOGRAPHY REASON FOR VISIT: Female, 33 years old. Fatty infiltration of the liver. TECHNIQUE: Ultrasound evaluation of the right upper quadrant was performed with real-time and static mcintosh-scale imaging. Point quantification shear wave elastography was performed ([employer]). TECHNICAL QUALITY: Adequate. COMPARISON: Comparison is made with prior CT scan done the pelvis dated May 27, 2024. FINDINGS: Liver: The liver is enlarged and measures 19.5 cm. There is increased echogenicity consistent with fatty infiltration. The bile ducts are within normal limits. There is hepatic color flow. The direction of portal flow is hepatopetal. There is no demonstrated mass lesion. Median liver stiffness measured 5.5 kPa. Gallbladder: Normal distended gallbladder. The gallbladder wall measures 3 mm. There is a negative sonographic Dyer''s sign. There is no pericholecystic fluid. There are no gallstones. Common Bile Duct (C.B.D.): The common bile duct measures 6 mm. Pancreas: There is normal echogenicity of the visualized pancreas. There is no demonstrated pancreatic mass or cyst. Right Kidney: Normal size of the right kidney. The right kidney measures 14.3 cm x 6.1 cm x 6.5 cm. Normal renal cortex. The right cortex measures 1.3 cm. There is no demonstrated renal mass or cyst. There is no right hydronephrosis. Findings suggestive of a right renal medullary sponge kidney. There is a 1.2 cm x 1 cm x 1 cm nonobstructive calculus in the right kidney. US/ABD Limited w/ Elastography IMPRESSION: 1. Liver stiffness measures 5.5 kPa compatible with F0-F1 (Normal to mild liver fibrosis) Metavir score. Hepatomegaly. 2. Nonobstructive right intrarenal calculus. Electronically Signed: Fredy Short MD at 10:21 EST ,
== END | disposition home or self-care (01) ==
LOC: US 07:45
PROVIDERS: PCP Family Medicine Geriatric Medicine; Referring Provider Family Medicine Geriatric Medicine; Visit Provider Family Medicine Geriatric Medicine
DX: K76.0 Fatty (change of) liver, not elsewhere classified (principal)
CPT/HCPCS: 76705; 76981

== ENCOUNTER → 2024-07-08 | Outpatient (CLI) | payer OTHER, SELFPAY | END | disposition home or self-care (01) | LOC: POLAB3 09:32 | PROVIDERS: PCP Family Medicine Geriatric Medicine; Visit Provider Family Medicine Geriatric Medicine | DX: R68.83 Chills (without fever) (principal) | CPT/HCPCS: 87631 ==

== ENCOUNTER → 2024-09-29 | Outpatient (CLI) | payer OTHER, SELFPAY | END | disposition home or self-care (01) | LOC: LABSPEC 16:49 | PROVIDERS: PCP Family Medicine Geriatric Medicine; Referring Provider Family Medicine Geriatric Medicine; Visit Provider Family Medicine Geriatric Medicine | DX: J98.8 Other specified respiratory disorders (principal); R05.1 Acute cough | CPT/HCPCS: 87631 ==

== ENCOUNTER → 2025-02-03 | Outpatient (CLI) | payer OTHER, SELFPAY ==
--- NOTE | 2025-02-03 07:56 | US_ITS ---
PROCEDURE: PELVIC W/ TRANSVAGINAL REASON FOR EXAM: DYSPAREUNIA TECHNIQUE: PELVIC W/ TRANSVAGINAL COMPARISON: None FINDINGS: Measurements: Uterus: 7.4 cm x 5.1 cm x 4 cm with a volume of 78.99 mL Endometrial Thickness: 9.3 mm. It is hyperechoic. There is evidence of a nabothian cyst. Right Ovary: 5.2 cm x 4.1 cm x 3.1 cm with a volume of 35.11 mL. Left Ovary: 2.5 cm x 2.4 cm x 2.1 cm with a volume of 6.41 mL. TRANSABDOMINAL: Uterus: Heterogeneous echotexture of the myometrium suggestive of fibroid change although no focal fibroid is seen. Endometrium: Unremarkable. Right ovary: There is a 4.2 cm 4.1 cm 3.1 cm simple cyst in the right ovary. Left ovary: Normal size and echotexture. Other: No large pelvic mass identified. Transvaginal sonography was performed to better visualize the endometrium. TRANSVAGINAL: Uterus: Anteverted. Fibroid change although no focal fibroid is seen. Endometrium: Normal echotexture. Right ovary: 4.2 cm 4.1 cm 3.1 cm simple cyst. Left ovary: Normal size and echotexture. Other adnexal findings: None. Cul-de-sac: No free intraperitoneal fluid identified. Tenderness: No tenderness US/Pelvic w/ Transvaginal IMPRESSION: Heterogeneous myometrium suggestive of fibroid change although no focal fibroid is seen. 4.2 cm 4.1 cm 3.1 cm simple cysts in the right ovary. Reading Location: [id number]
== END | disposition home or self-care (01) ==
LOC: OPUS 07:55
PROVIDERS: Referring Provider Nurse Practitioner Family; Visit Provider Nurse Practitioner Family
DX: N94.10 Unspecified dyspareunia (principal)
CPT/HCPCS: 76830; 76856

== ENCOUNTER → 2025-02-23 | Outpatient (CLI) | payer OTHER, SELFPAY ==
[2025-02-25 21:08] LABS: Chlamydia By Nucleic Acid AMP Negative (Negative); Gonococcus By Nucleic Acid AMP Negative (Negative)
[2025-02-26 09:09] LABS: HPV APTIMA, High Risk Negative (Negative)
== END | disposition home or self-care (01) ==
LOC: LABSPEC 16:13
PROVIDERS: Referring Provider Obstetrics & Gynecology; Visit Provider Obstetrics & Gynecology
DX: Z12.4 Encounter for screening for malignant neoplasm of cervix (principal); Z11.3 Encounter for screening for infections with a predominantly sexual mode of transmission; N94.10 Unspecified dyspareunia
CPT/HCPCS: 87070; 87077; 87186; 87205; 87491; 87591; 87624; 88175; G0145

== ENCOUNTER → 2025-03-04 | Outpatient (CLI) | payer OTHER, SELFPAY ==
[2025-03-04 13:29] LABS: Cholesterol 188 mg/dL (<=200); Glucose 97 mg/dL (70-99); Low Density Lipoprotein Calc. 109 mg/dL; Triglycerides 148 mg/dL; Very Low Density Lipoprotein 30 mg/dL (5-40); Vitamin D,25 Hydroxy 35.6 ng/mL (30-100); cholesterol:hdl ratio screen 3.78
== END | disposition home or self-care (01) ==
PROVIDERS: Referring Provider Obstetrics & Gynecology; Visit Provider Obstetrics & Gynecology
DX: Z01.419 Encounter for gynecological examination (general) (routine) without abnormal findings (principal); Z13.220 Encounter for screening for lipoid disorders; Z13.1 Encounter for screening for diabetes mellitus; Z13.29 Encounter for screening for other suspected endocrine disorder
CPT/HCPCS: 36415; 80061; 82306; 82947; 84443